=== PATIENT | male | born 1960 | race Caucasian/White ===

== ENCOUNTER 2019-02-15 02:59 | Inpatient (IN) ==
[2019-02-15 03:52] LABS: AGAP 11; ALBUMIN 3.4 g/dL (3.5-5.0); ALKALINE PHOSPHATASE 89 U/L (32-122); BUN 8 mg/dL (8-22); CALCIUM 8.8 mg/dL (8.8-10.2); CHLORIDE 92 mmol/L (98-107); COSMO 270; CREATININE 0.6 mg/dL (0.7-1.2); ESTIMATED GFR > 60; GLUCOSE 334 mg/dL (70-104); GOT 6 U/L (10-34); GPT < 5 U/L (10-44); SODIUM 129 mmol/L (136-145); TCO2 26 mmol/L (25-35); TOTAL PROTEIN 7.7 g/dL (6.3-8.3)
[2019-02-15] MEDS ORDERED: EPINEPHRINE IM ONE (03:52)
[2019-02-15] MEDS ORDERED: DUONEB (A & A) INH ONE (03:52)
[2019-02-15] MEDS ORDERED: SOLU-MEDROL IV ONE ×2 (03:52→08:58)
[2019-02-15] MEDS ORDERED: PULMICORT INH ONE (03:52)
[2019-02-15 03:55] LABS: BASO# 0.02 X1000 (0.0-0.2); BASO% 1.4 % (0.0-0.8); HEMATOCRIT 40.4 % (42.0-52.0); HEMOGLOBIN 13.9 g/dL (14.0-18.0); LYMPH# 0.71 X1000 (1.2-3.4); LYMPH% 51.4 % (20.5-51.1); MCH 25.5 PG (27-31); MCHC 34.4 g/dL (33-37); MCV 74.1 FL (81-99); MONO# 0.51 X1000 (0.11-0.59); MPV 8.5 FL (7.4-10.4); NEUT% 10.2 % (42.2-75.2); PLT 168 X1000 (130-400); RBC 5.45 XMIL (4.7-6.1); RDW 15.1 % (11.5-14.5); WBC 1.38 X1000 (4.8-10.8)
[2019-02-15] MEDS ORDERED: ZOSYN 3.375 GM in NS 50 ML IV ONE (04:16)
[2019-02-15] MEDS ORDERED: VANCOMYCIN 1 GM/NS 1 GM/250 ML IVPB IV ONE (04:16)
[2019-02-15] MEDS ORDERED: FLAGYL 500 MG/NS 500 MG/100 ML IVPB IV ONE (04:16)
--- NOTE | 2019-02-15 04:17 | PROVIDER DOCUMENTATION ---
HPI-EENT General - General Chief Complaint: Post Op Complaint Stated Complaint: "THROAT SWELLING" Time Seen by Provider: 02/15/19 03:51 Source: family Allergies/Adverse Reactions: Patient Allergies Allergy/AdvReac Type Severity Reaction Status Date / Time No Known Allergies Allergy Verified 02/15/19 03:13 - History of Present Illness-EENT General Nature of Presenting Problem: Pt had polyps removed from throat 3 weeks ago @ [facility]. IS not getting chemo/r adiation. Has had known low WBC. Over past 3 days, increasuing sharp throat pain, swelling. Presents tonight, feeling as if throat closing, cant breathe. EENT Location: reports: throat Quality of Pain: reports: sharp Onset/Duration: reports: 3 days ago Timing: reports: constant, getting worse Associated Symptoms: reports: cough, drooling Locality of Occurance: Home Similar Symptoms Previously?: No - Throat/Dental Throat/Dental Problem Symptoms: reports: unable to swallow Review of Systems - Adult - REVIEW OF SYSTEMS - ADULT Constitutional: reports: no symptoms reported Eyes: reports: no symptoms reported Ears, Nose, Mouth & Throat: reports: see HPI Cardiovascular: reports: no symptoms reported Respiratory: reports: shortness of breath Gastrointestinal: reports: no symptoms reported Genitourinary: reports: no symptoms reported Musculoskeletal: reports: no symptoms reported Integumentary: reports: no symptoms reported Neurological: reports: no symptoms reported Psychiatric: reports: no symptoms reported Endocrine: reports: no symptoms reported Hematologic/Lymphatic: reports: see HPI Allergic/Immunologic: reports: no symptoms reported Past History - Adult - PAST MEDICAL HISTORY-ADULT Review of Records: reports: Medications Reviewed Major Childhood Illnesses: reports: denies history Physical Exam- EENT - Physical Exam EE Initial Vital Signs Reviewed: Yes General Appearance: moderate distress Eye Exam: bilateral eye: normal inspection, PERRL, EOMI Ear Exam: bilateral ear: auricle normal Nasal Exam: normal inspection Throat Exam: normal mouth inspection, pharynx normal Neck: supple, tender midline Respiratory: respiratory distress, decreased breath sounds, accessory muscle use Cardiovascular: normal peripheral pulses, no edema, tachycardia Abdominal Exam: non tender, soft Back Exam: normal inspection, no CVA tenderness, no vertebral tenderness Extremity: normal range of motion, non-tender, normal gait, normal inspection Integumentary: normal color, normal turgor, warm/dry Neurologic: director of physical education II-XII nml as tested, grossly normal, no motor/sensory deficits, abnormal cerebellar tests Psych/Mental Status: normal mood/affect, normal thought content, normal thought process, oriented x 3 Progress - PLAN OF CARE/RESULTS Progress/Plan/Lab Results: Vital Signs - 8 hr 02/15/19 03:07 02/15/19 04:12 Temperature 100.9 F H Pulse Rate 105 H 105 H Respiratory Rate 18 18 Blood Pressure 120/74 O2 Sat by Pulse Oximetry 95 95 Laboratory Results - last 24 hr 02/15/19 02/15/19 02/15/19 03:20 03:20 03:20 WBC 1.38 L RBC 5.45 Hgb 13.9 L Hct 40.4 L MCV 74.1 L MCH 25.5 L MCHC 34.4 RDW Std Deviation 15.1 H Plt Count 168 MPV 8.5 Immature Gran % (Auto) 0.0 Neut % (Auto) 10.2 L Lymph % (Auto) 51.4 H Edwards % (Auto) 37.0 H Eos % (Auto) 0.0 Baso % (Auto) 1.4 H Immature Gran # (Auto) 0.00 Neut # (Auto) 0.20 L* Lymph # (Auto) 0.71 L Edwards # (Auto) 0.51 Eos # (Auto) 0.00 Baso # (Auto) 0.02 Segmented Neutrophils 16 L Lymphocytes 60 H Monocytes 20 H Pathologist Review Atypical Lymphocytes 4.0 Poikilocytosis OCCASIONAL Microcytosis OCCASIONAL Ovalocytes OCCASIONAL Sodium 129 L Potassium 4.0 Chloride 92 L Carbon Dioxide 26 Anion Gap 11 BUN 8 Creatinine 0.6 L Estimated GFR/1.73 m2 > 60 BUN/Creatinine Ratio 13 Glucose 334 H Calculated Osmolality 270 Calcium 8.8 Total Bilirubin 0.60 AST 6 L ALT < 5 L Alkaline Phosphatase 89 Total Protein 7.7 Albumin 3.4 L Globulin 4.0 Albumin/Globulin Ratio 1.0 Plasma Lactate 1.3 Orders Category Date Time Status Notify MD of + Sepsis Screen NOW Care 02/15/19 03:30 Active CHEST-1 VIEW [RAD] Stat Exams 02/15/19 03:52 Taken NECK AP AND/OR LAT SOFT TISSUE [RAD] Stat Exams 02/15/19 03:52 Taken BLOOD CULTURE [BLDCUL] Stat Lab 02/15/19 04:11 Ordered CBC WITH DIFF [HEME] Stat Lab 02/15/19 03:20 Completed COMPREHENSIVE METABOLIC PANEL [CHEM] Stat Lab 02/15/19 03:20 Completed LACTATE, PLASMA [CHEM] Stat Lab 02/15/19 03:20 Completed Albuterol 2.5MG/Ipratrop 0.5MG [Duoneb (A & A)] Med 02/15/19 03:52 Disconti nued 3 ml INH NOW ONE Budesonide [Pulmicort] Med 02/15/19 03:52 Discontinued 0.5 mg INH NOW ONE Epinephrine Med 02/15/19 03:52 Discontinued 0.4 mg IM NOW ONE Hydromorphone [Dilaudid] Med 02/15/19 05:18 Discontinued 1 mg IV NOW ONE Methylprednisolone Sod Succ [Solu-Medrol] Med 02/15/19 03:52 Discontinued 125 mg IV NOW ONE Metronidazole 500 mg/Ns [Flagyl 500 mg/Ns] Med 02/15/19 04:16 Discontinued 500 mg in 100 ml IV NOW Piperacillin/Tazobactam [Zosyn] 3.375 gm Med 02/15/19 04:16 Discontinued 0.9% Sodium Chloride Inj [Ns] 50 ml IV NOW Vancomycin 1 gm/Ns Med 02/15/19 04:16 Discontinued 1 gm in 250 ml IV NOW Aerosol Treatments Routine Oth 02/15/19 03:53 Active Aerosol Treatments Stat Oth 02/15/19 03:53 Active Result Diagrams: 02/15/19 03:20 02/15/19 03:20 - CONSULTS/PCP/HOSPITALIST Notification #1 *Consult/PCP/Hospitalist*: Akinsoto Time Discussed: 05:30 Consult Disposition: Admit Departure - Departure Date of Disposition Decision: 02/15/19 Time of Disposition Decision: 05:30 DIAGNOSIS: Neutropenia, febrile, Throat pain in adult Disposition: ADMITTED INPATIENT 09 Certified Medical Emergency: Emergent Condition: Good Referrals and Follow-Ups: None,PCP [Primary Care Provider] - - Critical Care Note This patient required my direct & personal management of CC.: No Attestation - Physician/ JODI Attestation Patient care was provided by Advanced Practice Provider:: No The physician spent face to face time with patient:: Yes Advanced Practice Provider documentation review:: Supervising physician onsite and consulted in the evaluation and care of this patient. The physician did have a face to face encounter with the patient.
[2019-02-15 04:22] LABS: LYMPHS 60 % (21-51); MONO 20 % (1-9); SEGS 16 % (42-75)
[2019-02-15 04:23] LABS: MICROCYTOSIS OCCASIONAL; POIKILOCYTOSIS OCCASIONAL
[2019-02-15 04:24] LABS: OVALOCYTES OCCASIONAL
[2019-02-15] MEDS ORDERED: DILAUDID IV ONE (05:18)
--- NOTE | 2019-02-15 07:16 | Diag Imaging Result Doc PS360 ---
EXAM: NECK AP AND/OR LAT SOFT TISSUE HISTORY: Throat closing TECHNIQUE: Soft tissue neck AP and lateral, two views COMPARISON: None. FINDINGS: No precervical soft tissue swelling. Epiglottis is prominent. No foreign body. IMPRESSION: Enlarged epiglottis Electronically signed by Waqar Almeida 02/15/2019 7:14 AM
--- NOTE | 2019-02-15 07:18 | Diag Imaging Result Doc PS360 ---
EXAM: CHEST-1 VIEW HISTORY: SOB TECHNIQUE: Chest single view COMPARISON: None. FINDINGS: The lungs are well expanded. The heart is not enlarged. The vessels are not distended. There are no infiltrates. No effusion identified. IMPRESSION: Negative exam. Electronically signed by Waqar Almeida 02/15/2019 7:16 AM
[2019-02-15] MEDS ORDERED: VANCOMYCIN IV PER PHARMACY MISC SCH (07:23)
[2019-02-15] MEDS ORDERED: NS 1,000 ML IV ONE (07:23)
[2019-02-15] MEDS ORDERED: DUONEB (A & A) INH PRN (09:01)
[2019-02-15] MEDS ORDERED: ZOFRAN IV PRN (09:18)
[2019-02-15] MEDS ORDERED: SOLU-MEDROL IV SCH (10:00)
[2019-02-15] MEDS ORDERED: AFRIN NASAL SPRAY NAS ONE (10:02)
[2019-02-15] MEDS ORDERED: HURRICAINE SPRAY TOP ONE (10:02)
[2019-02-15] MEDS ORDERED: FLAGYL 500 MG/NS 500 MG/100 ML IVPB IV SCH (11:00)
[2019-02-15] MEDS ORDERED: ZOSYN 3.375 GM in NS 50 ML IV SCH (11:00)
[2019-02-15] MEDS ORDERED: S2 RACEPINEPHRINE 2.25% ONE (11:50)
[2019-02-15] MEDS ORDERED: NS 1,000 ML ONE (11:51)
[2019-02-15] MEDS: DUONEB (A & A) INH SCH ×4 (11:59→23:07)
[2019-02-15] MEDS ORDERED: S2 RACEPINEPHRINE 2.25% INH ONE (12:00)
[2019-02-15] MEDS: DILAUDID IV PRN ×3 (12:06→23:36)
[2019-02-15] MEDS: DECADRON IV SCH ×3 (12:09→23:37)
[2019-02-15] MEDS: HUMULIN R SUBQ SCH ×4 (12:16→23:38)
[2019-02-15] MEDS ORDERED: VANCOMYCIN 1,750 MG in NS 250 ML IV SCH (13:00)
[2019-02-15] MEDS ORDERED: VANCOMYCIN 2,250 MG in NS 500 ML IV ONE (13:00)
--- NOTE | 2019-02-15 14:01 | HISTORY AND PHYSICAL ---
HISTORY OF PRESENT ILLNESS: Mr. Salcido reports that he had, I think, a laryngeal biopsy. There was concern about cancer, I believe. There was an Ear, Nose, and Throat doctor in [place] is what he told me he told me he did not go for follow-up. Apparently, he felt like they had ruptured a cyst. At any rate, he was doing pretty well for a week, and then he started having irritation in the larynx and more irritation, and he got concerned and came to the emergency room. Ears, Nose, and Throat Dr. Leonard has evaluated. It looks like it may be supraglottitis or super laryngeal irritation, infection, but the concern is he has a neutropenia and not sure why. PAST MEDICAL HISTORY: He has diabetes mellitus. He, I think, has been treated for hypertension; he denies. He has had some weight loss in the last several months; he is not sure exactly how much and in general feels a little weaker. Denies any fever or chills. No hemoptysis. He denies any other significant history. SOCIAL HISTORY: He used to drink pretty heavy. He quit 3 weeks ago after he has biopsy and apparently smoked until his biopsy so those have been stopped the last 3 weeks. REVIEW OF SYSTEMS: Weight loss reported. No fever chills reported. HEENT: Just irritation in his throat. Respiratory: Feels a little more short of breath. Cardiovascular: Denies any pedal edema, orthopnea. No chest pain or palpitations. Musculoskeletal/Neurologic: No focal complaints, just generally feels a little weak. Endocrinologic/Hematologic: No significant history. PHYSICAL EXAMINATION: VITAL SIGNS: He remains afebrile with temperature 98.2 degrees, pulse 80, respirations 14, blood pressure 98/73. EYES: Pupils are equal. NECK: No distended neck veins. LYMPH: I did not appreciate cervical or supraclavicular or axillary or femoral adenopathy. HENT: No thyromegaly. Posterior oropharynx looks unremarkable. He is fine at rest. When he starts talking and gets a little bit short of breath, voice is raspy. LUNGS: Clear anterior and posterior. CARDIOVASCULAR: Regular rhythm and rate without murmur or S3. ABDOMEN: Soft. SKIN: Warm and dry. DIAGNOSTIC STUDIES: White count 1380, hematocrit 40, platelet count 168,000. Sodium 129, potassium 4.0, chloride 92, BUN 8, creatinine 0.6, calcium 8.8, AST 6, ALT was less than 5, albumin 3.4. His chest x-ray: He has a negative exam, no infiltrate. Heart is not enlarged. Mediastinum unremarkable. I did not appreciate adenopathy. X-ray of the neck has enlarged epiglottis, epiglottitis, and no sign of foreign body. ASSESSMENT AND PLAN: 1. Supralaryngeal and epiglottitis in the face of neutropenia. Unsure why he has neutropenia. We are going to cover him for gram-positive and Streptococcus. He is on Zosyn ,and he is on vancomycin, but cover him for broad spectrum because of neutropenia. We will give him some Decadron to help the swelling go down, 8 mg IV q.8 h., and we will give him some fluids. I think we will move him to the unit or we can watch him. Right now, he appears to be stable. His airway appears to be stable. 2. Neutropenia. Questionable cause. We will see how his white count does. We may need to check HIV status and check other causes of neutropenia, and I may get Dr. Hurtado on the case tomorrow. 3. Diabetes mellitus, type 2. We will check sugars. 4. Losing weight. Not sure what that is about. cc: Roberto Herrera MD
--- NOTE | 2019-02-15 16:40 | INFECTIOUS DISEASE CONSULT REP ---
DATE: 02/15/2019 CONCLUSION: The patient is admitted the hospital with what appears to be epiglottitis. The patient has neutropenia the exact cause of which I am uncertain. RECOMMENDATIONS: I have discontinued vancomycin because it can decrease the white blood cell count and it is already low. I am going to discontinue Flagyl because in epiglottitis, anaerobic organisms do not play any role in causing the disease and finally, I am going to discontinue Zosyn because it can interact with vancomycin and give nephrotoxicity. Instead, I am going to start the patient on ceftaroline which should cover methicillin-resistant Staph aureus as well as other organisms such as Haemophilus, Strep pyogenes, pneumococcus and Staph aureus including methicillin- resistant Staph aureus. DISCUSSION: I was unable to get much in the way of a history from the patient because he talks and when he starts talking, his voice fades away and he then often coughs. According to Dr. Herrera's history and physical, the patient had a laryngeal biopsy recently and then he started having pain in his throat and he was having difficulty breathing. He finally came to the hospital and there the diagnosis of epiglottitis was made. The patient's CBC shows a white count of 1380, hemoglobin 13.9, platelet count 168,000. Creatinine is 0.6. GFR is greater than 60. Liver function studies are normal. Blood cultures are pending. Neck x-ray showed enlargement of the epiglottis. Chest x-ray shows clear lung wick. 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 SOCIAL HISTORY: The patient drinks alcoholic beverages. REVIEW OF SYSTEMS: I was unable to get. PHYSICAL EXAMINATION: Vital Signs: Temperature is 101 degrees, pulse 81, respirations 14, blood pressure 110/70. Generally: This is an ill-appearing middle-aged male. He is in no acute distress. Head/eyes/ears/nose/throat: He can hear my spoken words and see near objects. In his throat it looks somewhat erythematous. Neck: No stiffness. Lungs: Clear to auscultation. Cardiovascular: Regular heart rate. Abdomen: Soft and nontender. Neurologic: Patient is awake. He can move his extremities. There is no tremor. Integument: No rash noted. Thank you for the consult. cc: Sandip Hurtado MD
[2019-02-15 17:03] LABS: URINE SOURCE CLEAN CATCH
[2019-02-15 17:11] LABS: BILIRUBIN URINE NEGATIVE (NEGATIVE); BLOOD URINE TRACE (NEGATIVE); COLOR YELLOW; GLUCOSE URINE >1000 mg/dL (NEGATIVE); KETONE URINE 20 mg/dL (NEGATIVE); LEUKOCYTES URINE NEGATIVE (NEGATIVE); NITRITE URINE NEGATIVE (NEGATIVE); PH URINE 5.5; PROTEIN URINE TRACE mg/dL (NEGATIVE); SP GRAVITY URINE 1.026; TURBIDITY URINE CLEAR (CLEAR); UR EPITHELIAL CELLS <10 /HPF (<10); URINE BACTERIA NEGATIVE /HPF; URINE RBC <10 /HPF (<10); URINE WBC <10 /HPF (<10); UROBILINOGEN URINE NORMAL (NORMAL)
[2019-02-15] MEDS: GRANIX SUBQ SCH (18:28)
[2019-02-15] MEDS: TEFLARO 600 MG in NS 250 ML IV SCH (18:28)
[2019-02-15] MEDS ORDERED: GLUCOPHAGE PO SCH (21:00)
[2019-02-16] MEDS ORDERED: VANCOMYCIN 1,750 MG in NS 250 ML IV SCH (01:00)
[2019-02-16] MEDS: TEFLARO 600 MG in NS 250 ML IV SCH ×2 (06:22→17:00)
[2019-02-16] MEDS: DECADRON IV SCH ×3 (06:23→18:26)
[2019-02-16] MEDS: DILAUDID IV PRN ×3 (06:35→20:33)
[2019-02-16] MEDS: HUMULIN R SUBQ SCH ×4 (06:36→20:34)
[2019-02-16 07:16] LABS: EOS# 0.01 X1000 (0.0-0.7); EOS% 0.6 % (0.0-10.0); HEMATOCRIT 39.3 % (42.0-52.0); HEMOGLOBIN 13.5 g/dL (14.0-18.0); IMM GRAN# 0.03 X1000 (0.0-0.04); IMM GRAN% 1.8 % (0.0-0.5); LYMPH# 0.28 X1000 (1.2-3.4); LYMPH% 16.4 % (20.5-51.1); MCHC 34.4 g/dL (33-37); MCV 72.9 FL (81-99); MONO# 0.56 X1000 (0.11-0.59); MONO% 32.7 % (1.7-9.3); MPV 8.9 FL (7.4-10.4); NEUT# 0.83 X1000 (1.4-6.5); NEUT% 48.5 % (42.2-75.2); PLT 173 X1000 (130-400); RBC 5.39 XMIL (4.7-6.1); RDW 15.1 % (11.5-14.5); WBC 1.71 X1000 (4.8-10.8)
[2019-02-16 07:17] LABS: INR 1.04; PROTIME 14.4 Seconds (11.0-16.0); PTT 34.3 Seconds (22.3-41.8)
[2019-02-16 07:18] LABS: HEMOGLOBIN A1C 10.8 % (4.8-6.0)
[2019-02-16 07:48] LABS: AGAP 11; ALB/GLOB RATIO 0.7; ALBUMIN 2.9 g/dL (3.5-5.0); ALKALINE PHOSPHATASE 77 U/L (32-122); BUN 17 mg/dL (8-22); CALCIUM 9.3 mg/dL (8.8-10.2); CHLORIDE 97 mmol/L (98-107); COSMO 275; CREATININE 0.7 mg/dL (0.7-1.2); ESTIMATED GFR > 60; GLUCOSE 299 mg/dL (70-104); GOT 5 U/L (10-34); GPT < 5 U/L (10-44); MAGNESIUM 1.5 mg/dL (1.5-2.7); SODIUM 131 mmol/L (136-145); TCO2 23 mmol/L (25-35); TOTAL BILIRUBIN 0.47 mg/dL (0.20-1.00); TOTAL PROTEIN 7.2 g/dL (6.3-8.3)
[2019-02-16 08:06] LABS: FREE T4 1.44 ng/dL (0.93-1.70); TSH 0.5 uIUmL (0.27-4.20)
--- NOTE | 2019-02-16 08:06 | INFECTIOUS DISEASE PROGRESS NO ---
DATE: 02/16/2019 PRESENT ILLNESS: The patient has epiglottitis. He also has neutropenia. MEDICATIONS: The patient is on ceftaroline as a single agent. The patient also is receiving corticosteroids. PHYSICAL EXAMINATION: Vital Signs: Temperature is 97.8 degrees, pulse 74, respirations 19, blood pressure 113/78. Generally: The patient looks much better today. He does not have any problem breathing. He is able to talk better. He has been taking ice cubes and swallowing water without difficulty. Neck: No pain with movement. Lungs: Clear to auscultation. Cardiovascular: Regular heart rate. Head/eyes/ears/nose/throat: No drainage noted from the nose or ears. When I looked in the patient's mouth, there was some erythema but there is no white coating of his tongue. Lungs: Clear to auscultation. Cardiovascular: Regular heart rate. Abdomen: Soft and nontender. Neurologic: Patient is alert. He can move his extremities. There is no tremor. INTEGUMENT: No rash noted. LAB AND X-RAY: There is no new lab for today as of yet. The rapid strep test was negative. Blood and throat cultures are pending. ASSESSMENT AND PLAN: The patient has epiglottitis and neutropenia. The epiglottitis is getting better. As regarding the neutropenia I plan to obtain a CBC and BMP for tomorrow. I am going to get tomorrow a CBC, BMP and chest x-ray. COMORBIDITIES: He has diabetes mellitus and he had a laryngeal lesion which was being biopsied a week or 2 ago. This may have contributed to the patient's epiglottitis. The patient is a diabetic also. cc: Sandip Hurtado MD
[2019-02-16] MEDS: DUONEB (A & A) INH SCH ×5 (08:13→23:30)
[2019-02-16 08:47] LABS: BANDS 15 % (0-1); LYMPHS 20 % (21-51); MONO 30 % (1-9); SEGS 35 % (42-75)
[2019-02-16 08:48] LABS: HYPOCHROM 1+; MICROCYTOSIS 2+
--- NOTE | 2019-02-16 09:25 | PROGRESS NOTE ---
DATE: 02/16/2019 SUBJECTIVE: Mr. Salcido is feeling much better. He is requesting some food. His breathing is comfortable. His voice is not as raspy, not as much discomfort when he talks. OBJECTIVE: Vitals: Temperature 97.4 degrees, pulse 78, respirations 22, blood pressure 121/77. Neck: No distended neck veins. Eyes: Pupils are equal. Lungs: Are clear in all lung wick anterolateral. Cardiovascular: Regular rhythm and rate without murmur or S3. Abdomen: Soft. Skin: Warm and dry. ASSESSMENT AND PLAN: 1. Patient with epiglottitis and neutropenia. He is on ceftaroline, single agent and receiving Decadron corticosteroid and much better. Continue IV fluids. 2. Neutropenia. I am not sure why. I am going to try and obtain old records. 3. He gives a history that he has been diagnosed with rheumatoid arthritis. He has some nodules on both elbows, right more than the left. Also he told me that he has had a history of gout in the past. We are going to try and give him some Granix 480 mcg subcutaneous daily for 3 days and he is on a steroid inhaler as well as nebulized inhalers. Dr. Hurtado is following and I believe that vancomycin was stopped because it could decrease the white blood cell count, which is already low and discontinue Flagyl. I do not suspect anaerobic organisms. Discontinue Zosyn as it can interact with vancomycin and give nephrotoxicity. Dr. Hurtado started her on ceftaroline, which should cover for methicillin-resistant Staphylococcus aureus as well as other organisms such as Haemophilus, streptococcus pyogenes, pneumococcus and Staph aureus. cc: Roberto Herrera MD
[2019-02-16] MEDS: LOVENOX SUBQ SCH (09:47)
[2019-02-16] MEDS: GRANIX SUBQ SCH (09:47)
[2019-02-16] MEDS: TYLENOL PO PRN (20:35)
[2019-02-17] MEDS: DECADRON IV SCH ×4 (00:12→18:02)
[2019-02-17] MEDS: TYLENOL PO PRN (04:21)
[2019-02-17] MEDS: DILAUDID IV PRN ×2 (04:22→19:52)
[2019-02-17] MEDS: TEFLARO 600 MG in NS 250 ML IV SCH (04:24)
[2019-02-17] MEDS: HUMULIN R SUBQ SCH ×4 (06:20→21:25)
--- NOTE | 2019-02-17 06:35 | Diag Imaging Result Doc PS360 ---
CHEST-1 VIEW - 02/17/2019 INDICATION: pneumonia COMPARISON: 02/15/2019 FINDINGS: There is a skin fold in the right side of the chest. The lungs are clear. Heart size is normal. No pneumothorax or pleural effusion. IMPRESSION: Negative exam. Electronically signed by Prashanth Oliva 02/17/2019 6:33 AM
[2019-02-17 07:04] LABS: BASO# 0.01 X1000 (0.0-0.2); BASO% 0.6 % (0.0-0.8); HEMOGLOBIN 13.5 g/dL (14.0-18.0); IMM GRAN# 0.33 X1000 (0.0-0.04); IMM GRAN% 19.3 % (0.0-0.5); LYMPH# 0.16 X1000 (1.2-3.4); LYMPH% 9.4 % (20.5-51.1); MCH 25.5 PG (27-31); MCHC 34.6 g/dL (33-37); MCV 73.7 FL (81-99); MONO# 0.65 X1000 (0.11-0.59); MPV 9.6 FL (7.4-10.4); NEUT# 0.56 X1000 (1.4-6.5); NEUT% 32.7 % (42.2-75.2); PLT 164 X1000 (130-400); RBC 5.29 XMIL (4.7-6.1); RDW 15.2 % (11.5-14.5); WBC 1.71 X1000 (4.8-10.8)
[2019-02-17 07:31] LABS: AGAP 13; BUN 16 mg/dL (8-22); CALCIUM 9.4 mg/dL (8.8-10.2); CHLORIDE 95 mmol/L (98-107); COSMO 275; CREATININE 0.7 mg/dL (0.7-1.2); ESTIMATED GFR > 60; GLUCOSE 373 mg/dL (70-104); POTASSIUM 4.3 mmol/L (3.5-5.1); SODIUM 129 mmol/L (136-145); TCO2 21 mmol/L (25-35)
[2019-02-17] MEDS ORDERED: INSULIN PEN NEEDLES ONE (08:29)
[2019-02-17] MEDS: DUONEB (A & A) INH SCH ×5 (08:31→23:30)
[2019-02-17] MEDS: LOVENOX SUBQ SCH (08:44)
[2019-02-17] MEDS ORDERED: LEVEMIR SUBQ SCH (09:00)
[2019-02-17] MEDS: GRANIX SUBQ SCH (10:03)
--- NOTE | 2019-02-17 11:59 | INFECTIOUS DISEASE PROGRESS NO ---
DATE: 02/17/2019 PRESENT ILLNESS: The patient has epiglottitis. He also has neutropenia. MEDICATIONS: The patient is receiving ceftaroline as well as steroids. PHYSICAL EXAMINATION: Vital Signs: Temperature is 98 degrees, pulse 93, respirations 15, blood pressure 100/75. General: This is a somewhat ill-appearing middle-aged male. He is in no acute distress. Head, Eyes, Ears, Nose, and Throat: He can hear my spoken words and see near objects. He does not have any white patches on his tongue. He does talk with a hoarse voice. Neck: No pain with movement of the neck. Lungs: Clear to auscultation. Cardiovascular: Regular heart rate. Abdomen: Soft and nontender. Neurologic: The patient is alert. He can move his extremities. There is no tremor. DIAGNOSTIC STUDIES: The patient's chest x-ray shows clear lung wick. CBC shows a white count of 1710 with an absolute neutrophil count of 560, hemoglobin is 13.5, platelet count is 164,000. Creatinine is 0.7, GFR is greater than 60. Chest x-ray shows clear lung wick. ASSESSMENT AND PLAN: Patient has epiglottitis. I am going to discontinue ceftaroline and instead start the patient on p.o. Augmentin and doxycycline. COMORBIDITIES: 1. The patient has diabetes mellitus. 2. He also had a laryngeal lesion which was being biopsied a week or 2 before he developed epiglottitis. cc: Sandip Hurtado MD
[2019-02-17] MEDS: AUGMENTIN PO SCH (17:10)
[2019-02-17] MEDS: DOXYCYCLINE PO SCH (17:10)
[2019-02-17] MEDS: LEVEMIR SUBQ SCH (21:25)
--- NOTE | 2019-02-17 22:11 | PROGRESS NOTE ---
DATE: 02/17/2019 SUBJECTIVE: The patient is sitting up in the chair. He states that he still has a little bit of pain when he swallows, but he is able to tolerate a full liquid diet without any difficulty. He does complain of pain in his hands and feet. OBJECTIVE: Vital Signs: Temperature 96.5, blood pressure 129/72, heart rate 101, respirations 18, O2 saturations 95% on room air. General: This is a chronically ill- appearing, elderly male, lying in bed in no acute distress. Heart: S1, S2 normal. Tachycardic. Lungs: Clear to auscultation bilaterally. Abdomen: Positive bowel sounds. Soft, nontender, nondistended. Extremities: No edema. No cyanosis. Neurologic: The patient is alert and oriented x4. LABORATORIES: White blood cell count 1.7, hemoglobin 13, hematocrit 39, platelets 164. Sodium 129, potassium 4.3, chloride 95, CO2 of 21, BUN 16, creatinine 0.7, glucose is 373, calcium 9.4. ASSESSMENT AND PLAN: 1. Epiglottitis. Slowly improving. Continue on IV antibiotic therapy as directed by . 2. Laryngeal mass. Will order a CT to further assess this. Oncology has been consulted. 3. Neutropenia. Will await further recommendations from the employment recruiter. 4. Hyponatremia. Will start the patient on gentle IV fluid hydration. We will also check urine osmolality and urine sodium. 5. Uncontrolled insulin-dependent diabetes mellitus. We will start the patient on Levemir twice a day. 6. Alcohol dependence. We will start the patient on Librium and monitor closely for withdrawal. 7. Constipation. Will start the patient on scheduled laxative therapy. 8. Gastrointestinal prophylaxis. Will start the patient on IV Protonix. 9. Deep vein thrombosis prophylaxis. Will start the patient on Lovenox. cc: Aliyah Ron MD MTDShweta
[2019-02-17] MEDS: NEURONTIN PO SCH (23:57)
[2019-02-17] MEDS: LIBRIUM PO SCH (23:57)
[2019-02-17] MEDS: COLACE PO SCH (23:57)
[2019-02-18] MEDS: ATIVAN IV PRN ×2 (02:49→10:18)
[2019-02-18] MEDS: AUGMENTIN PO SCH ×2 (05:52→18:27)
[2019-02-18] MEDS: DOXYCYCLINE PO SCH ×2 (05:52→18:27)
[2019-02-18] MEDS: LIBRIUM PO SCH ×3 (05:52→20:40)
[2019-02-18 05:57] LABS: AGAP 11; BUN 12 mg/dL (8-22); CALCIUM 8.7 mg/dL (8.8-10.2); CHLORIDE 98 mmol/L (98-107); COSMO 273; CREATININE 0.7 mg/dL (0.7-1.2); ESTIMATED GFR > 60; GLUCOSE 192 mg/dL (70-104); SODIUM 134 mmol/L (136-145); TCO2 25 mmol/L (25-35)
[2019-02-18] MEDS: PERCOCET-5 PO PRN (05:57)
[2019-02-18] MEDS: PROTONIX IV SCH (06:08)
[2019-02-18] MEDS: HUMULIN R SUBQ SCH ×4 (06:08→20:44)
[2019-02-18 06:19] LABS: BASO# 0.01 X1000 (0.0-0.2); BASO% 0.2 % (0.0-0.8); EOS# 0.06 X1000 (0.0-0.7); EOS% 1.3 % (0.0-10.0); HEMATOCRIT 35.5 % (42.0-52.0); LYMPH# 0.36 X1000 (1.2-3.4); MCHC 33.8 g/dL (33-37); MONO# 0.82 X1000 (0.11-0.59); MONO% 18.2 % (1.7-9.3); MPV 9.8 FL (7.4-10.4); NEUT# 3.26 X1000 (1.4-6.5); NEUT% 72.3 % (42.2-75.2); PLT 140 X1000 (130-400); RDW 15.1 % (11.5-14.5); WBC 4.51 X1000 (4.8-10.8)
[2019-02-18 07:11] LABS: LYMPHS 14 % (21-51); SEGS 86 % (42-75)
[2019-02-18] MEDS: DUONEB (A & A) INH SCH ×5 (07:42→22:33)
[2019-02-18] MEDS ORDERED: DECADRON IV SCH (09:00)
[2019-02-18 09:12] LABS: RETIC% 0.87 % (0.8-2.1); RETIC-HE 29.1 PG (28.2-36.6)
[2019-02-18 09:30] LABS: MAGNESIUM 1.5 mg/dL (1.5-2.7); PHOSPHORUS 1.6 mg/dL (2.7-4.5)
[2019-02-18] MEDS ORDERED: MAGNESIUM SULFATE 2 GM/S.W.I. 2 GM/50 ML IVPB IV ONE (09:39)
[2019-02-18 09:50] LABS: FERRITIN 850 ng/mL (30-400)
[2019-02-18] MEDS ORDERED: SODIUM PHOSPHATE 30 MMOL in NS 250 ML IV ONE (09:51)
[2019-02-18] MEDS: MIRALAX PO SCH ×4 (09:59→20:43)
[2019-02-18] MEDS: LOVENOX SUBQ SCH (09:59)
[2019-02-18] MEDS: COLACE PO SCH ×2 (09:59→20:40)
[2019-02-18] MEDS: LEVEMIR SUBQ SCH (10:00)
--- NOTE | 2019-02-18 10:35 | INFECTIOUS DISEASE PROGRESS NO ---
DATE: 02/18/2019 PRESENT ILLNESS: The patient is being treated for epiglottitis. He was neutropenic, but after getting Granix his white count has increased. MEDICATIONS: The patient is on Augmentin and doxycycline, both of which were started yesterday. The patient also is receiving steroids. PHYSICAL EXAMINATION: Vital signs: Temperature is 96.5 degrees, pulse 99, respirations 18. General: This is a fairly healthy-appearing, middle-aged male. He has been sedated. Head, eyes, ears, nose and throat: No drainage from the nose or ears. Neck: No meningismus. Lungs: Clear to auscultation. Cardiovascular: Heart rate is regular. Abdomen: Soft and nontender. Integument: No rash. Neurologic: As mentioned above patient is sedated. He did not respond to verbal stimuli. LAB AND X-RAY: CBC today shows a white count of 4510 hemoglobin 12 platelet count 140,000 creatinine 0.7 GFR is greater than 60. The patient does not have any radiology procedure today. ASSESSMENT AND PLAN: Patient has epiglottitis. This is day 1 of treatment with Augmentin and doxycycline which both I plan on continuing. COMORBIDITIES: Diabetes mellitus and approximately 1 to 2 weeks ago he had a laryngeal biopsy performed. cc: Sandip Hurtado MD
--- NOTE | 2019-02-18 12:21 | Diag Imaging Result Doc PS360 ---
EXAM: CT HEAD W/O CONTRAST INDICATION: encephalopathy TECHNIQUE: This exam was performed using automated exposure control, adjustment of mA or kV according to patient size, and/or use of iterative reconstruction technique. COMPARISON: None. FINDINGS: There is no definite acute infarct given the limited sensitivity of CT versus MRI. There is no discrete intracranial mass, mass effect, or intracranial hemorrhage. The surrounding soft tissues and bony structures are essentially unremarkable. IMPRESSION: No evidence of acute intracranial pathology. Electronically signed by Alfonso Yang 02/18/2019 12:18 PM
--- NOTE | 2019-02-18 13:27 | Diag Imaging Result Doc PS360 ---
EXAM: CT NECK/THORAX/ABD/PELVIS W/CON INDICATION: laryngeal mass/Weight loss/neutropenia/splenomegaly TECHNIQUE: This exam was performed using automated exposure control, adjustment of mA or kV according to patient size, and/or use of iterative reconstruction technique. COMPARISON: None. FINDINGS: NECK: The salivary glands and thyroid are unremarkable. There is asymmetry at the level of the true and false vocal cords with ill-defined soft tissue prominent on the left. However, no well-defined mass can be identified. The epiglottis appears somewhat thickened, more prominent on the left. The upper aerodigestive tract is unremarkable, otherwise. There are small shotty supraclavicular lymph nodes bilaterally, most prominent on the left. They are nonspecific and not necessarily pathologic as they all measure less than 1 cm in the short axis. No other significant cervical lymphadenopathy is appreciated. IMPRESSION: 1.Irregularity at the level of the true and false focal cords with thickening on the left but no well-defined mass identified on this study. 2.Some thickening of the epiglottis, more prominent on the left. 3.Nonspecific small shotty supraclavicular lymph nodes, more prominent on the left. CHEST: There are a few small pulmonary calcified granulomata bilaterally. There are mild emphysematous changes, mainly at the right lung apex. There is bilateral dependent atelectasis, mainly at the lower lobes. There is no pleural fluid collection and no pneumothorax. The heart is mildly prominent. There are calcified mediastinal and hilar lymph nodes indicating prior granulomatous disease. There are coronary artery atherosclerotic calcifications. There is nothing to suggest local bony metastatic disease to the thorax. IMPRESSION: 1.Bilateral dependent atelectasis. 2.Mild COPD changes. 3.Other incidental/nonacute findings detailed above. ABDOMEN/PELVIS: There is prominent splenomegaly. The spleen measures up to 18.6 cm in craniocaudal length. There is suggestion of very minimal hepatic steatosis. No discrete hepatic mass is identified. The gallbladder is unremarkable. The pancreas and adrenal glands are unremarkable. There is a 4.9 cm cyst at the anterior aspect of the left kidney that probably contains a small amount of proteinaceous debris or blood products. No enhancement is appreciated. The kidneys are unremarkable, otherwise. The urinary bladder is very distended. No urinary bladder wall thickening or mass is identified. The prostate is not enlarged. There is mild uncomplicated sigmoid colonic diverticulosis. There is abundant stool in the transverse colon. There is no evidence of bowel wall thickening and no evidence of bowel obstruction. The remainder of the GI tract is grossly unremarkable. There is no evidence of significant abdominal or pelvic lymphadenopathy. There is thoracolumbar spondylosis. There is nothing to suggest local bony metastatic disease to the abdomen or pelvis. IMPRESSION: 1.Prominent splenomegaly. 2.Other incidental/nonacute findings detailed above. Electronically signed by Alfonso Yang 02/18/2019 1:24 PM
--- NOTE | 2019-02-18 13:34 | CONSULTATION ---
DATE OF CONSULTATION: 02/18/2019 HISTORY OF PRESENT ILLNESS: Mr. Salcido is 58 years old and he was admitted with apparent epiglottitis. That problem is being managed. There is history of ethanol abuse at baseline but reported possibly reduced ethanol use in recent days or weeks. He has had an altered mental state with restlessness, agitation, possibly confusion. No focal neurologic features have been recognized. I don't have detailed past neurologic history, but there is not reported history of stroke, seizure, serious head injury, other neurologic event. LABORATORY DATA: Lab showed WBC count 1380, total neutrophils 200, anemia, platelets 140,000. Sodium was 129, corrected to 134. Blood sugars were initially 300s-400s but recently just under 200. We do not have urine drug screen this admission. VITAL SIGNS: He had initial temperature recorded 100.9 degrees and he has been afebrile for the last 3 days. Heart rate has ranged from 90s to 110s initially, down to 70s-90s, recently. Systolic blood pressures have been stable, ranging 90s to 120s. IMAGING: Noncontrast CT of the head today shows some typical chronic changes, a little bit more prominent than usually seen in this age group, but there is nothing focal or acute, no bleeding or mass. PHYSICAL EXAMINATION: General: Mr. Salcido is supine, only briefly attentive, not communicating. He groaned and grimaced, but did not speak words to me. Head: Unremarkable. Neck: Supple without meningismus. Neurologic: He has full lateral eye movement with passive head turning and there was also some spontaneous conjugate eye movement. He opened and closed his eyes spontaneously, but not to command. Pupils are small and both react to bright light. Facial motility is symmetric. Limb tone is symmetric. He used his arms and legs purposefully. Plantar response is silent bilaterally. IMPRESSION AND PLAN: Global encephalopathy, uncertain etiology. Features are consistent with alcohol withdrawal syndrome, but other possibilities are not excluded. Negative CT is reassuring. I would continue managing as you are doing. We can consider EEG if he has fluctuating level of consciousness or clinical evidence of seizure. Time will tell, and I hope he will recover in a short time. Thanks for asking Neurology to see Mr. Salcido. cc: Nat Prado III, MD [facility]
[2019-02-18] MEDS: NS 1,000 ML IV SCH ×2 (14:17)
[2019-02-18 14:27] LABS: URINE SOURCE CATH
[2019-02-18 14:32] LABS: BILIRUBIN URINE NEGATIVE (NEGATIVE); BLOOD URINE NEGATIVE (NEGATIVE); COLOR YELLOW; GLUCOSE URINE NEGATIVE (NEGATIVE); KETONE URINE NEGATIVE (NEGATIVE); LEUKOCYTES URINE NEGATIVE (NEGATIVE); NITRITE URINE NEGATIVE (NEGATIVE); PH URINE 6.5; PROTEIN URINE NEGATIVE (NEGATIVE); TURBIDITY URINE CLEAR (CLEAR); UROBILINOGEN URINE 2 mg/dL (NORMAL)
[2019-02-18 14:33] LABS: UR EPITHELIAL CELLS <10 /HPF (<10); URINE BACTERIA NEGATIVE /HPF; URINE RBC <10 /HPF (<10); URINE WBC <10 /HPF (<10)
[2019-02-18] MEDS: FOLIC ACID 1 MG in NS 50 ML IV SCH (15:50)
--- NOTE | 2019-02-18 19:30 | HEMO/ONC CONSULTATION ---
DATE: 02/17/2019 CHIEF COMPLAINT: Neutropenia. HISTORY OF PRESENT ILLNESS: Mr. Salcido is a very pleasant 58-year-old male with a history of diabetes mellitus type 2, hypertension and EtOH abuse. The patient recently underwent laryngeal polypectomy with biopsy. The patient reports that status post the procedure he began to have severe throat pain and swelling. He presented to [facility], where he was seen in consult by [facility] N[facility] and Throat, Dr. Leonard. The patient was diagnosed with supraglottitis. Laboratory data was obtained and the patient was found to be significantly neutropenic, with no history of such. White blood cell count is 1.71, ANC is 560. We are consulted secondary to neutropenia. PAST MEDICAL HISTORY: As in HPI. PAST SURGICAL HISTORY: Recent laryngeal polypectomy with biopsy. FAMILY HISTORY: Negative for any hematologic or oncologic problems. SOCIAL HISTORY: The patient has a history of ETOH abuse. The patient has a history of smoking cigarettes, and stopped prior to laryngeal polypectomy. MEDICATIONS: On admission, metformin. ALLERGIES: The patient has no known drug allergies. REVIEW OF SYSTEMS: A 14-point review of systems was obtained and is negative except as mentioned in HPI. PHYSICAL EXAMINATION: Mr. Tevin Salcido is a pleasant 58-year-old male, lying supine in bed in no immediate distress. Vital signs: Temperature 97.6 degrees, blood pressure 100/75, heart rate 93, respirations 15, O2 saturation is 95% on room air. HEENT: Normocephalic, atraumatic. Mucous membranes are pink and moist. Sclerae are anicteric. Extraocular movements intact. Neck is supple. Lungs are clear to auscultation bilaterally. Chest expansion equal bilaterally. CV: S1, S2 is heard. No murmurs, rubs or gallops. Abdomen nondistended, nontender. Bowel sounds positive, all quadrants. No rebound or guarding noted. Extremities without clubbing, cyanosis or edema. Dermatologic: No rashes, bruises or lesions. Neurologic: The patient is awake, alert and oriented x3, and has no focal motor deficit. LABORATORY DATA: Hemoglobin 13.5, hematocrit 39.0, white blood cell count is 1.71, platelet count 164,000, ANC is 560. Sodium 129, potassium 4.3, chloride 95, CO2 is 21, BUN 16, creatinine 0.7 and glucose is 373. Calcium is 9.4. DIAGNOSTIC DATA: Chest x-ray is negative. ASSESSMENT AND PLAN: 1. Neutropenia in patient with no prior history. We will initiate a workup at this time. We will add neutropenic precautions. Additionally, we will add Granix to the patient's regimen. We will follow along. 2. Epiglottitis status post laryngeal polypectomy 3 weeks ago. The patient remains on ceftaroline and steroids. 3. Diabetes mellitus type 2. Blood sugar is currently 373. Treatment per hospitalist. 4. Weight loss. The patient reports approximately 100 pounds in weight loss in less than 1 year. Workup is currently in progress. 5. We will follow along with you and make further recommendations pending outcomes. The above reflects the history, exam, assessment and plan of Dr. Cintron. Dictated by SAPNA Turcios for Nahum Cintron MD cc: SAPNA Turcios MD
--- NOTE | 2019-02-18 19:58 | PROGRESS NOTE ---
DATE: 02/18/2019 SUBJECTIVE: The patient is confused and hallucinating. He is now in 4 point restraints. OBJECTIVE: Vital Signs: Temperature 98.6 degrees, blood pressure 110/82, heart rate 71, respirations 18, O2 saturation 98% on room air. General: This is a chronically ill-appearing elderly male, lying in bed in no acute distress. Heart: S1, S2 normal. Regular rate and rhythm. Lungs: Clear to auscultation bilaterally. Abdomen: Positive bowel sounds. Soft, nontender, nondistended. Extremities: No edema, no cyanosis. Neurologic: The patient is only oriented to self. He is currently not making sense. LABS: White blood cell count 4.5, hemoglobin 12, hematocrit 35, platelets 140,000. Sodium 134, potassium 4, chloride 98, CO2 25, BUN 12, creatinine 0.7, glucose 150, magnesium 1.5, phosphorus 1.6. Head CT shows no acute intracranial pathology. CT of the neck, chest, abdomen, and pelvis shows irregularity at the level of the true and false vocal cords with thickening on the left. Mild shotty supraclavicular lymph nodes, more prominent on the left. Chronic obstructive pulmonary disease. Bilateral dependent atelectasis. Splenomegaly. ASSESSMENT AND PLAN: 1. Suspected alcohol withdrawal. The patient is currently in 4-point restraints due to hallucinations. We will continue with Librium and as needed Ativan. The patient has been assessed by the neurologist. The patient's head CT is unremarkable. 2. Epiglottitis. Improved. We will discontinue the steroids. The case was discussed with Dr. Chaudhry, who recommended that the patient follow up with his outpatient ENT. Continue antibiotic therapy. 3. Possible laryngeal mass. The patient will be following up with ENT as outpatient. 4. Neutropenia. Resolved. Hematology is following. 5. Insulin dependent diabetes mellitus. We will cover the patient with sliding scale insulin. 6. Alcohol dependence. Aware. 7. Hypophosphatemia. Replace phosphorus. 8. Gastrointestinal prophylaxis. Continue on intravenous Protonix. 9. Deep vein thrombosis prophylaxis. Continue on Lovenox. cc: Aliyah Ron MD [facility]
[2019-02-18] MEDS: NEURONTIN PO SCH (20:40)
[2019-02-19] MEDS: NS 1,000 ML IV SCH ×4 (00:27→23:11)
[2019-02-19] MEDS: ATIVAN IV PRN ×2 (02:40→06:30)
[2019-02-19] MEDS: LIBRIUM PO SCH ×4 (04:57→23:10)
[2019-02-19] MEDS: AUGMENTIN PO SCH ×2 (05:00→17:31)
[2019-02-19] MEDS: DOXYCYCLINE PO SCH ×2 (05:00→17:31)
[2019-02-19] MEDS: PROTONIX IV SCH (06:00)
[2019-02-19] MEDS: SODIUM CHLORIDE 0.9% INJ SCH (06:01)
[2019-02-19 06:13] LABS: BASO# 0.01 X1000 (0.0-0.2); BASO% 0.3 % (0.0-0.8); HEMATOCRIT 36.6 % (42.0-52.0); HEMOGLOBIN 12.4 g/dL (14.0-18.0); IMM GRAN# 0.02 X1000 (0.0-0.04); IMM GRAN% 0.5 % (0.0-0.5); LYMPH# 0.87 X1000 (1.2-3.4); LYMPH% 22.7 % (20.5-51.1); MCH 25.4 PG (27-31); MCHC 33.9 g/dL (33-37); MCV 74.8 FL (81-99); MONO# 0.36 X1000 (0.11-0.59); MONO% 9.4 % (1.7-9.3); MPV 9.2 FL (7.4-10.4); NEUT# 2.57 X1000 (1.4-6.5); NEUT% 67.1 % (42.2-75.2); PLT 145 X1000 (130-400); RBC 4.94 XMIL (4.7-6.1); RDW 15.7 % (11.5-14.5); WBC 3.83 X1000 (4.8-10.8)
[2019-02-19 06:17] LABS: AGAP 9; BUN 7 mg/dL (8-22); CALCIUM 8.5 mg/dL (8.8-10.2); CHLORIDE 104 mmol/L (98-107); COSMO 280; CREATININE 0.6 mg/dL (0.7-1.2); ESTIMATED GFR > 60; GLUCOSE 86 mg/dL (70-104); POTASSIUM 3.7 mmol/L (3.5-5.1); SODIUM 142 mmol/L (136-145); TCO2 29 mmol/L (25-35)
[2019-02-19] MEDS: HUMULIN R SUBQ SCH ×4 (06:19→20:00)
[2019-02-19] MEDS: DUONEB (A & A) INH SCH ×5 (08:40→23:40)
--- NOTE | 2019-02-19 09:05 | PROGRESS NOTE ---
DATE: 02/19/2019 LOCATION: ICU bed 11. OBJECTIVE: Mr. Salcido appeared to be asleep as I approached the bedside. With fairly light stimulation, he woke up, spoke some to me, followed simple instructions, and then seemed quickly back to sleep when not vigorously spoken to. While awake, he moved all his limbs purposefully. He followed simple commands. There is full lateral eye movement. There is no meningismus. IMPRESSION: Global encephalopathy, features consistent with alcohol withdrawal and medical management for that problem. No evidence of seizure. No evidence of acute central nervous system event. Thank you for asking Neurology to see Mr. Salcido. I do not have any new suggestion today. cc: Nat Prado III, MD [facility]
[2019-02-19] MEDS: COLACE PO SCH ×2 (09:21→20:08)
[2019-02-19] MEDS: MIRALAX PO SCH ×2 (09:21→20:09)
[2019-02-19] MEDS: LOVENOX SUBQ SCH (09:21)
--- NOTE | 2019-02-19 12:52 | PROGRESS NOTE ---
DATE: 02/19/2019 SUBJECTIVE: The patient was noted to be somewhat sleepy this morning. He will awaken when his name is called. He is in restraints. OBJECTIVE: Vital Signs: Temperature 97.3 degrees, blood pressure 94/64, heart rate 92, respirations 18, O2 saturation is 96% on room air. General: This is a chronically ill-appearing, elderly male lying in bed, in no acute distress. Heart: S1, S2 normal. Regular rate and rhythm. Lungs: Equal air entry bilaterally. No crackles. No rales. Abdomen: Positive bowel sounds. Soft, nontender, nondistended. Extremities: No edema. No cyanosis. Neurologic: The patient is lethargic but will awaken when his name is called. He is able to move all 4 extremities. Labs: White blood cell count 3.8, hemoglobin 12, hematocrit 36, platelets 145,000. Sodium 142, potassium 3.7, chloride 104, CO2 29, BUN 7, creatinine 0.6, glucose 86, calcium 8.5, phosphorus 2.8. ASSESSMENT AND PLAN: 1. Alcohol withdrawal. Continue on Librium and as needed Ativan. We will continue to monitor the patient closely for improvement. 2. Epiglottitis. Improved. We will continue with antibiotic therapy. 3. Possible laryngeal mass. The patient will be following up with ENT as an outpatient. 4. Insulin dependent diabetes mellitus. Continue on sliding scale insulin. 5. Alcohol dependence. Aware. 6. Gastrointestinal prophylaxis. Continue on Protonix. 7. Deep vein thrombosis prophylaxis. Continue on Lovenox. cc: Aliyah Ron MD MTDD
--- NOTE | 2019-02-19 14:20 | INFECTIOUS DISEASE PROGRESS NO ---
DATE: 02/19/2019 PRESENT ILLNESS: The patient has epiglottitis. His neutropenia has improved quite a bit after getting Granix. MEDICATIONS: The patient is on a combination of Augmentin and doxycycline. The patient also is receiving steroids. PHYSICAL EXAMINATION: Vital Signs: Temperature is 98 degrees, pulse 71, respirations 18, blood pressure 130/95. General: This is a fairly healthy-appearing, middle-aged male. He is in no acute distress. He has been sedated. Head, Eyes, Ears, Nose, and Throat: No drainage noted from the nose or ears. He does not have any white patches on his tongue. Neck: No pain with movement of his head. Lungs: Clear to auscultation. Cardiovascular: Heart rate is regular. Abdomen: Soft and nontender. Neurologic: The patient is lethargic, probably due to sedation. He did, however, respond to verbal stimuli and even carried on a conversation with me. DIAGNOSTIC STUDIES: The patient's CBC shows a white count of 3830, hemoglobin 12.4, platelet count 145,000. Creatinine is 0.6, GFR is greater than 60. The patient had a head CT scan and this showed no evidence of acute intracranial pathology. ASSESSMENT AND PLAN: The patient has epiglottitis. This is the second day of treatment with Augmentin and doxycycline, and altogether he patient has had 4 days of treatment with antibiotics. COMORBIDITIES: 1. Diabetes mellitus. 2. History of a laryngeal biopsy. 3. Dr. Prado's note indicates that the patient was a heavy drinker of alcohol, and he may be undergoing withdrawal symptoms at this time. cc: Sandip Hurtado MD
[2019-02-19] MEDS: FOLIC ACID 1 MG in NS 50 ML IV SCH (14:26)
[2019-02-19] MEDS: NEURONTIN PO SCH (20:08)
[2019-02-20] MEDS: ATIVAN IV PRN (02:35)
[2019-02-20 05:35] LABS: HEMATOCRIT 37.1 % (42.0-52.0); HEMOGLOBIN 12.2 g/dL (14.0-18.0); MCH 25.4 PG (27-31); MCHC 32.9 g/dL (33-37); MCV 77.1 FL (81-99); MPV 9.1 FL (7.4-10.4); RBC 4.81 XMIL (4.7-6.1); RDW 15.9 % (11.5-14.5); WBC 2.62 X1000 (4.8-10.8)
[2019-02-20] MEDS: LIBRIUM PO SCH ×3 (05:37→20:25)
[2019-02-20] MEDS: AUGMENTIN PO SCH ×2 (05:37→17:11)
[2019-02-20] MEDS: DOXYCYCLINE PO SCH ×2 (05:37→17:11)
[2019-02-20] MEDS ORDERED: MAGNESIUM SULFATE 2 GM/S.W.I. 2 GM/50 ML IVPB IV ONE (05:57)
[2019-02-20 05:59] LABS: AGAP 9; BUN 6 mg/dL (8-22); CALCIUM 8.4 mg/dL (8.8-10.2); CHLORIDE 106 mmol/L (98-107); COSMO 280; CREATININE 0.6 mg/dL (0.7-1.2); ESTIMATED GFR > 60; GLUCOSE 124 mg/dL (70-104); POTASSIUM 3.7 mmol/L (3.5-5.1); SODIUM 141 mmol/L (136-145); TCO2 26 mmol/L (25-35)
[2019-02-20] MEDS: HUMULIN R SUBQ SCH ×4 (06:09→21:20)
[2019-02-20] MEDS: SODIUM CHLORIDE 0.9% INJ SCH (06:15)
[2019-02-20] MEDS: PROTONIX IV SCH (06:15)
[2019-02-20] MEDS: DUONEB (A & A) INH SCH ×5 (08:42→23:35)
[2019-02-20] MEDS: MIRALAX PO SCH ×2 (09:10→20:25)
[2019-02-20] MEDS: LOVENOX SUBQ SCH (09:10)
[2019-02-20] MEDS: COLACE PO SCH ×2 (09:10→20:25)
[2019-02-20] MEDS: MYCOSTATIN SUSP PO SCH ×4 (09:10→20:25)
[2019-02-20] MEDS: NS 1,000 ML IV SCH (09:10)
[2019-02-20] MEDS: FOLIC ACID 1 MG in NS 50 ML IV SCH (14:27)
--- NOTE | 2019-02-20 14:29 | INFECTIOUS DISEASE PROGRESS NO ---
DATE: 02/20/2019 PRESENT ILLNESS: Mr. Salcido has been treated for epiglottitis which seems to be improving. He has also developed an oral candidiasis. MEDICATIONS: At this point, he is receiving Augmentin 875 by mouth every 12 hours as well as doxycycline 100 mg every 12 hours by mouth. PHYSICAL EXAMINATION: Vital Signs: Temperature is 97.2 degrees, pulse rate 87, respiratory rate 14, blood pressure 125/98, O2 saturations are 99% on room air. General: This is a chronically ill-appearing, middle-aged gentleman. He is sitting up in bed, currently in no acute distress. HEENT: Atraumatic, normocephalic. Oral mucous membranes are pink and moist. Oral vestibules without any erythema. He does have a white coating to his tongue and complains of soreness to his tongue. He is also hoarse and conjunctiva are pink. Neck: Supple. Trachea is midline. Cardiovascular: Heart rate and rhythm are regular. Normal sinus rhythm on the monitor with occasional PACs and PVCs noted. Respiratory: Lung sounds are generally clear to auscultation with some tight wheezing noted in the upper lobes. Abdomen: Soft, round and nontender to palpation. Bowel sounds are active. Neurologic: He is awake, alert and oriented. Moving all extremities without difficulty in the bed. No focal deficits or tremors. LABORATORY AND X-RAY: Today his white count is 2.62, hemoglobin 12.2, platelet count 126,000. Creatinine is 0.6. Estimated GFR is greater than 60. No imaging reports today. ASSESSMENT AND PLAN: Mr. Salcido was being treated for epiglottitis and continues to improve. He is receiving Augmentin and doxycycline which we will continue. Altogether, today is day 5 of treatment with antibiotics. He does have some white coating to his tongue with soreness so I will order some nystatin swish and swallow. These plans have been discussed with and recommended by Dr. Hurtado. COMORBIDITIES: Include diabetes mellitus, alcoholism, and history of laryngeal biopsy. Dictated by SAPNA Quiroz for Sandip Hurtado MD cc: Sandip Hurtado MD [facility]
--- NOTE | 2019-02-20 14:38 | PROGRESS NOTE ---
DATE: 02/20/2019 SUBJECTIVE: The patient is awake and alert. He is no longer requiring wrist restraints. He states that he ate a good breakfast. OBJECTIVE: Vital Signs: Temperature 98.6 degrees, blood pressure 128/80, heart rate 82, respirations 14, O2 saturation 99% on room air. General: This is an elderly male lying in bed in no acute distress. Heart: S1, S2 normal. Regular rate and rhythm. Lungs: Clear to auscultation bilaterally. Abdomen: Positive bowel sounds. Soft, nontender, nondistended. Extremities: No edema, no cyanosis. Neurologic: The patient is alert and oriented x3. LABS: White blood cell count 2.6, hemoglobin 12, hematocrit 37, platelets 126,000. Sodium 141, potassium 3.7, chloride 106, CO2 26, BUN 6, creatinine 0.6, glucose 124, magnesium 1.4, phosphorus 3.4, calcium 8.4. ASSESSMENT AND PLAN: 1. Alcohol withdrawal. Improved. The patient is more awake and alert today. He is out of wrist restraints. 2. Epiglottitis. Continue with antibiotic therapy. 3. Possible laryngeal mass. The patient will be following up with Ear, Nose and Throat as outpatient. 4. Microcytic anemia. The patient's hemoglobin and hematocrit is stable. 5. Insulin dependent diabetes mellitus. Will start long-acting insulin since the patient is now eating solid food. 6. Alcohol dependence. Aware. 7. Tobacco dependence. The patient has been counseled about smoking cessation. 8. Gastrointestinal prophylaxis. Continue on Protonix. 9. Deep vein thrombosis prophylaxis. Continue on Lovenox. 10. Disposition. The patient is stable for transfer to the medical floor. Will consult physical therapy. cc: Aliyah Ron MD [facility]
--- NOTE | 2019-02-20 15:18 | PROGRESS NOTE ---
DATE: 02/20/2019 Mr. Salcido is propped up in bed, relaxed, calm, and not tremulous. He is awake, alert, and attentive. He answered questions appropriately. Speech is not dysarthric. Limb tone is symmetric. Extraocular movements are full. Head and neck are unremarkable. IMPRESSION: Global encephalopathy appears to be resolved with management for DTs. I encouraged him to be careful with ethanol, and he admitted he understands that is a problem and the reason for his recent trouble. I do not have anything new from Neurology standpoint. Thanks for asking us to see Mr. Salcido. cc: Nat Prado III, MD [facility]
[2019-02-20] MEDS: DILAUDID IV PRN ×2 (15:23→20:25)
[2019-02-20] MEDS: NEURONTIN PO SCH (20:25)
[2019-02-20] MEDS: LANTUS INSULIN SUBQ SCH (21:20)
[2019-02-21] MEDS: SODIUM CHLORIDE 0.9% INJ SCH (06:59)
[2019-02-21] MEDS: AUGMENTIN PO SCH ×2 (06:59→17:25)
[2019-02-21] MEDS: DOXYCYCLINE PO SCH ×2 (06:59→17:25)
[2019-02-21] MEDS: PROTONIX IV SCH (06:59)
[2019-02-21] MEDS: DILAUDID IV PRN ×2 (07:00→09:14)
[2019-02-21] MEDS: HUMULIN R SUBQ SCH ×4 (07:02→21:47)
[2019-02-21] MEDS: DUONEB (A & A) INH SCH ×5 (07:37→23:56)
[2019-02-21 07:58] LABS: AGAP 9; BUN 8 mg/dL (8-22); CALCIUM 8.4 mg/dL (8.8-10.2); CHLORIDE 101 mmol/L (98-107); COSMO 283; CREATININE 0.7 mg/dL (0.7-1.2); ESTIMATED GFR > 60; GLUCOSE 228 mg/dL (70-104); MAGNESIUM 1.4 mg/dL (1.5-2.7); PHOSPHORUS 2.1 mg/dL (2.7-4.5); SODIUM 139 mmol/L (136-145); TCO2 29 mmol/L (25-35)
[2019-02-21 09:00] LABS: BASO# 0.01 X1000 (0.0-0.2); BASO% 0.6 % (0.0-0.8); EOS# 0.02 X1000 (0.0-0.7); EOS% 1.1 % (0.0-10.0); HEMATOCRIT 38.8 % (42.0-52.0); HEMOGLOBIN 12.6 g/dL (14.0-18.0); LYMPH# 0.84 X1000 (1.2-3.4); LYMPH% 47.7 % (20.5-51.1); MCHC 32.5 g/dL (33-37); MCV 77.1 FL (81-99); MONO% 11.4 % (1.7-9.3); MPV 8.9 FL (7.4-10.4); NEUT# 0.69 X1000 (1.4-6.5); NEUT% 39.2 % (42.2-75.2); PLT 122 X1000 (130-400); RBC 5.03 XMIL (4.7-6.1); RDW 15.9 % (11.5-14.5); WBC 1.76 X1000 (4.8-10.8)
[2019-02-21] MEDS: MYCOSTATIN SUSP PO SCH ×4 (09:02→22:11)
[2019-02-21] MEDS: MIRALAX PO SCH ×4 (09:02→22:11)
[2019-02-21] MEDS: LIBRIUM PO SCH ×3 (09:02→17:25)
[2019-02-21] MEDS: COLACE PO SCH ×2 (09:02→22:11)
[2019-02-21] MEDS: LANTUS INSULIN SUBQ SCH ×2 (09:08→22:13)
[2019-02-21] MEDS: LOVENOX SUBQ SCH (09:08)
[2019-02-21] MEDS ORDERED: MAGNESIUM SULFATE 2 GM/S.W.I. 2 GM/50 ML IVPB IV ONE (09:12)
[2019-02-21] MEDS ORDERED: SODIUM PHOSPHATE 30 MMOL in NS 250 ML IV ONE (09:12)
[2019-02-21] MEDS ORDERED: DULCOLAX PR ONE (09:44)
--- NOTE | 2019-02-21 11:27 | PROGRESS NOTE ---
DATE: 02/21/2019 SUBJECTIVE: The patient states that he has not had a bowel movement in several days. Otherwise, he complains of pain in his hands and feet. OBJECTIVE: Vital Signs: Temperature 97.6 degrees, blood pressure 116/73, heart rate 73, respirations 20, O2 saturation 99% on room air. General: This is an elderly male sitting up in bed in no acute distress. Heart: S1, S2 normal. Regular rate and rhythm. Lungs: Clear to auscultation bilaterally. Abdomen: Positive bowel sounds. Soft, nontender, nondistended. Extremities: No edema. No cyanosis. No calf tenderness. Neurologic: The patient is alert and oriented x4. LABORATORY DATA: WBC: 1.7, ANC 690. White blood cell count 12, hematocrit 38, platelets 122,000. Sodium 139, potassium 4, chloride 101, CO2 29, phosphorus 2.1, magnesium 1.4, glucose 228. ASSESSMENT AND PLAN: 1. Alcohol withdrawal. Improved. Continue on Librium taper. 2. Epiglottitis. Continue with antibiotic therapy. 3. Possible laryngeal mass. The patient will be following up with ENT as outpatient. 4. Pancytopenia. The patient is neutropenic again today. Will await further recommendations from Hematology-Oncology. We will place the patient on neutropenic precautions. 5. Insulin-dependent diabetes mellitus. Continue on long-acting insulin. 6. Constipation. We will start the patient on scheduled laxative therapy. 7. Tobacco dependence. The patient has been counseled about smoking cessation. 8. Deep vein thrombosis prophylaxis. We will hold the Lovenox today since the patient's platelet count is trending downward. cc: Aliyah Ron MD [facility]
[2019-02-21] MEDS: PERCOCET-5 PO PRN ×2 (13:26→22:11)
[2019-02-21] MEDS: LACTULOSE PO SCH ×2 (13:27→22:11)
[2019-02-21] MEDS: GRANIX SUBQ SCH (14:55)
[2019-02-21] MEDS: FOLIC ACID 1 MG in NS 50 ML IV SCH (20:45)
[2019-02-21] MEDS: CHLORASEPTIC SPRAY MT PRN (22:11)
[2019-02-21] MEDS: NEURONTIN PO SCH (22:11)
[2019-02-22] MEDS: PROTONIX IV SCH (04:46)
[2019-02-22] MEDS: PERCOCET-5 PO PRN ×3 (04:46→16:34)
[2019-02-22] MEDS: DOXYCYCLINE PO SCH ×3 (04:46→17:23)
[2019-02-22] MEDS: AUGMENTIN PO SCH ×3 (04:46→17:23)
[2019-02-22] MEDS: HUMULIN R SUBQ SCH ×4 (06:21→22:17)
[2019-02-22] MEDS: DUONEB (A & A) INH SCH ×5 (07:15→23:37)
[2019-02-22 07:22] LABS: BASO# 0.01 X1000 (0.0-0.2); BASO% 0.1 % (0.0-0.8); EOS# 0.01 X1000 (0.0-0.7); EOS% 0.1 % (0.0-10.0); HEMATOCRIT 38.5 % (42.0-52.0); HEMOGLOBIN 12.5 g/dL (14.0-18.0); IMM GRAN# 0.03 X1000 (0.0-0.04); IMM GRAN% 0.3 % (0.0-0.5); LYMPH# 0.74 X1000 (1.2-3.4); LYMPH% 8.6 % (20.5-51.1); MCH 25.1 PG (27-31); MCHC 32.5 g/dL (33-37); MCV 77.3 FL (81-99); MONO# 0.46 X1000 (0.11-0.59); MONO% 5.3 % (1.7-9.3); MPV 9.4 FL (7.4-10.4); NEUT# 7.39 X1000 (1.4-6.5); NEUT% 85.6 % (42.2-75.2); PLT 134 X1000 (130-400); RBC 4.98 XMIL (4.7-6.1); RDW 16.2 % (11.5-14.5); WBC 8.64 X1000 (4.8-10.8)
[2019-02-22 07:36] LABS: AGAP 9; ALB/GLOB RATIO 0.9; ALBUMIN 2.9 g/dL (3.5-5.0); ALKALINE PHOSPHATASE 85 U/L (32-122); BUN 10 mg/dL (8-22); CALCIUM 8.7 mg/dL (8.8-10.2); CHLORIDE 101 mmol/L (98-107); COSMO 284; CREATININE 0.8 mg/dL (0.7-1.2); ESTIMATED GFR > 60; GLUCOSE 199 mg/dL (70-104); GOT 7 U/L (10-34); GPT 7 U/L (10-44); MAGNESIUM 1.4 mg/dL (1.5-2.7); PHOSPHORUS 3.1 mg/dL (2.7-4.5); POTASSIUM 4.4 mmol/L (3.5-5.1); SODIUM 140 mmol/L (136-145); TCO2 30 mmol/L (25-35); TOTAL BILIRUBIN 0.38 mg/dL (0.20-1.00)
[2019-02-22 07:38] LABS: FLOW CYTOMETERY SOURCE WHOLE BLOOD; LEUKEMIA LYMPHOMA BY FLOW REFERRED FOR TESTING
[2019-02-22] MEDS: LACTULOSE PO SCH ×2 (09:16→19:39)
[2019-02-22] MEDS: COLACE PO SCH ×2 (09:16→19:39)
[2019-02-22] MEDS: LIBRIUM PO SCH ×3 (09:16→17:23)
[2019-02-22] MEDS: MYCOSTATIN SUSP PO SCH ×4 (09:16→19:39)
[2019-02-22] MEDS: MIRALAX PO SCH ×3 (09:17→19:39)
[2019-02-22] MEDS: LANTUS INSULIN SUBQ SCH (09:17)
[2019-02-22] MEDS: GRANIX SUBQ SCH (09:17)
[2019-02-22] MEDS ORDERED: FLEXERIL PO ONE (10:36)
[2019-02-22] MEDS ORDERED: FLEXERIL PO PRN (11:49)
[2019-02-22] MEDS ORDERED: MAGNESIUM SULFATE 4 GM/S.W.I. 4 GM/100 ML IVPB IV ONE (12:25)
--- NOTE | 2019-02-22 13:27 | PROGRESS NOTE ---
DATE: 02/22/2019 SUBJECTIVE: The patient is resting comfortably in bed. He complains of muscle cramping in his hands. OBJECTIVE: Vital Signs: Temperature 97.5 degrees, blood pressure 115/77, heart rate 100, respirations 16, O2 saturation is 98% on room air. General: This is an elderly male, sitting up in bed, in no acute distress. Heart: S1, S2 normal. Regular rate and rhythm. Lungs: Equal air entry bilaterally. No crackles. No rales. Abdomen: Positive bowel sounds. Soft, nontender, nondistended. Extremities: No edema, no cyanosis. Neurologic: The patient is alert and oriented x4. Labs: White blood cell count 8.6, hemoglobin 12, hematocrit 38, platelets 134,000. Sodium 140, potassium 4.4, chloride 101, CO2 30, BUN 10, creatinine 0.8, glucose 199, magnesium 1.4. ASSESSMENT AND PLAN: 1. Alcohol withdrawal. Resolved. We will continue to taper the Librium. 2. Epiglottitis. Improved. Continue on Augmentin and doxycycline. 3. Uncontrolled insulin-dependent diabetes mellitus. Continue on Lantus plus sliding scale insulin. 4. Hypomagnesemia. We will replace the patient's magnesium. 5. Neutropenia. Resolved. The patient received Granix yesterday. Management as per Heme/Onc. He will likely need a bone marrow biopsy. He was to follow up with Dr. Danis Gilbert in [place], [place]. 6. 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 The patient will be following up with ENT Dr.Kenneth Unger as outpatient for further evaluation. 7. Tobacco dependence. The patient has been counseled about smoking cessation. 8. Constipation. Improved. Continue with scheduled laxative therapy. 9. Deep vein thrombosis prophylaxis. Continue on Lovenox. 10. Disposition. We will likely plan to discharge the patient home tomorrow. cc: Aliyah Ron MD [facility]
[2019-02-22] MEDS: NEURONTIN PO SCH (19:39)
[2019-02-22] MEDS: CHLORASEPTIC SPRAY MT PRN (19:42)
[2019-02-22] MEDS: HUMULIN N SUBQ SCH (22:17)
[2019-02-23] MEDS: NEURONTIN PO SCH (03:46)
[2019-02-23] MEDS: COLACE PO SCH ×2 (03:46→09:04)
[2019-02-23] MEDS: MYCOSTATIN SUSP PO SCH ×2 (03:47→09:04)
[2019-02-23] MEDS: LACTULOSE PO SCH ×2 (03:47→09:04)
[2019-02-23] MEDS: MIRALAX PO SCH ×2 (03:47→09:05)
[2019-02-23] MEDS: AUGMENTIN PO SCH ×2 (04:56→07:31)
[2019-02-23] MEDS: PERCOCET-5 PO PRN (04:56)
[2019-02-23] MEDS: DOXYCYCLINE PO SCH ×2 (04:56→07:31)
[2019-02-23] MEDS: PROTONIX IV SCH (04:57)
[2019-02-23] MEDS: SODIUM CHLORIDE 0.9% INJ SCH (04:57)
[2019-02-23] MEDS: HUMULIN R SUBQ SCH ×2 (05:50→11:55)
[2019-02-23 07:03] LABS: MAGNESIUM 1.6 mg/dL (1.5-2.7); PHOSPHORUS 3.5 mg/dL (2.7-4.5)
[2019-02-23 07:06] LABS: BASO# 0.01 X1000 (0.0-0.2); BASO% 0.1 % (0.0-0.8); EOS# 0.02 X1000 (0.0-0.7); EOS% 0.2 % (0.0-10.0); HEMATOCRIT 40.7 % (42.0-52.0); HEMOGLOBIN 13.4 g/dL (14.0-18.0); IMM GRAN# 0.05 X1000 (0.0-0.04); IMM GRAN% 0.4 % (0.0-0.5); LYMPH# 1.36 X1000 (1.2-3.4); LYMPH% 11.7 % (20.5-51.1); MCH 25.1 PG (27-31); MCHC 32.9 g/dL (33-37); MCV 76.4 FL (81-99); MONO# 0.63 X1000 (0.11-0.59); MONO% 5.4 % (1.7-9.3); MPV 9.7 FL (7.4-10.4); NEUT# 9.57 X1000 (1.4-6.5); NEUT% 82.2 % (42.2-75.2); PLT 149 X1000 (130-400); RBC 5.33 XMIL (4.7-6.1); RDW 16.5 % (11.5-14.5); WBC 11.64 X1000 (4.8-10.8)
[2019-02-23 07:19] LABS: AGAP 12; BUN 9 mg/dL (8-22); CHLORIDE 97 mmol/L (98-107); COSMO 271; CREATININE 0.8 mg/dL (0.7-1.2); ESTIMATED GFR > 60; GLUCOSE 97 mg/dL (70-104); POTASSIUM 4.5 mmol/L (3.5-5.1); SODIUM 136 mmol/L (136-145); TCO2 27 mmol/L (25-35)
[2019-02-23] MEDS ORDERED: MAGNESIUM SULFATE 2 GM/S.W.I. 2 GM/50 ML IVPB IV ONE (07:22)
[2019-02-23] MEDS: DUONEB (A & A) INH SCH ×2 (08:18→11:14)
[2019-02-23] MEDS ORDERED: FOLIC ACID PO SCH (09:00)
--- NOTE | 2019-02-23 09:26 | INFECTIOUS DISEASE PROGRESS NO ---
DATE: 02/23/2019 PRESENT ILLNESS: The patient is being treated for epiglottitis. He has made a remarkable improvement, and he is being discharged today on a combination of Augmentin and Cipro to be taken for 10 more days. I have requested that the patient have an appointment in my office in 10 days from today. cc: Sandip Hurtado MD
[2019-02-23] MEDS: HUMULIN N SUBQ SCH (09:33)
[2019-02-23 12:22] VITALS: BP 113/75
[2019-02-23] MEDS ORDERED: LOVENOX SUBQ SCH (12:27)
--- NOTE | 2019-02-23 16:13 | DISCHARGE SUMMARY ---
ADMISSION DATE: 02/15/2019 DISCHARGE DATE: 02/23/2019 FINAL DISCHARGE DIAGNOSES: 1. Acute epiglottitis. 2. Alcohol withdrawal. 3. 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 4. Neutropenia. 5. Uncontrolled insulin-dependent diabetes mellitus. 6. Hypomagnesemia. 7. Tobacco dependence. 8. Constipation. 9. Microcytic anemia. CONSULTATIONS REQUESTED DURING THIS HOSPITAL STAY: 1. ID consultation with Dr. Hurtado. 2. ENT consultation with Dr. Chaudhry. 3. Hematology oncology consultation with Dr. Cintron. IMAGIN. Portable chest x-ray performed on 02/15/2019 that revealed a negative exam. 2. X-ray of the neck performed on 02/15/2019 that revealed an enlarged epiglottis. 3. CT of the chest, abdomen, and pelvis performed on 02/18/2019 that revealed an irregularity at the level of the true and false vocal cords with thickening seen on the left. Thickening of the epiglottis more prominent on the left. Small supraclavicular lymph nodes, more prominent on the left. Bilateral dependent atelectasis. Chronic obstructive pulmonary disease. Splenomegaly. 4. Head CT which revealed no acute intracranial pathology. HOSPITAL COURSE: Mr. Salcido is a 58-year-old male with a history of tobacco and alcohol dependence, as well as insulin-dependent diabetes mellitus, who presented to the ER with a sore throat and difficulty swallowing. An x-ray was done that revealed a prominent epiglottis. The patient reported that he had a recent laryngoscopy with a biopsy at the beginning of January, but had not had time to follow-up yet. The patient was admitted to the medical ICU with a diagnosis of epiglottitis. Infectious Disease as well as ENT were consulted. The patient was initially started on IV antibiotics and steroid therapy. Slowly over the course of the hospitalization the patient improved and was able to eventually swallow solids. He also reported that the pain had resolved. The patient did develop alcohol withdrawal and was treated with Librium and Ativan as necessary. Withdrawal symptoms resolved and the patient was transferred to the medical floor. The patient was noted to be neutropenic, so Hematology Oncology was consulted for further recommendations. The patient was treated with Granix which resulted in improvement in the patient's neutropenia. The patient stated that he did not have the money to pay for his prescriptions so Pediatric Nephrologist was consulted to assist with helping the patient to acquire his medications. The patient had a CT of the neck, chest, abdomen, and pelvis done that revealed splenomegaly as well as an irregularity at the level of the true and false vocal cords with thickening on the left as well as a prominent epiglottis and small supraclavicular lymph nodes, more prominent on the left. The patient has been advised to follow up with Dr. Lal in [facility]. He will also need to follow up with Dr. Cintron at [facility] to arrange for a bone marrow biopsy. The patient continued to improve clinically and was ultimately cleared for discharge home on 02/23/2019. DISCHARGE MEDICATIONS: 1. Neurontin 100 mg oral at bedtime. 2. Augmentin 875 mg oral every 12 hours x10 days. 3. Doxycycline 100 mg oral every 12 hours x10 days. 4. Folic acid 0.4 mg oral daily. 5. NPH 25 units subcutaneous twice a day. 6. MiraLAX 17 g oral twice a day. 7. Percocet 5/325 one tab oral every 6 hours p.r.n. pain. 8. Metformin 500 mg oral twice a day. DISCHARGE DIET: 1800 ADA diet, low-sodium diet. ACTIVITY: As tolerated. DISCHARGE INSTRUCTIONS: The patient is scheduled to follow up with Dr. Cintron on 03/04/2019. The patient has also been told to call and set up an appointment with Dr. Ramón Lal upon discharge from the hospital. The patient will also follow up with Dr. Sandip Hurtado in 10 days. cc: MD Ramón Purcell MD
== END 2019-02-23 14:50 | disposition home or self-care (01) | DRG 153 ==
LOC: P.ED 02:59 → 3N 06:19 → SUATTDRO 06:19 → 3N 06:54 → ICU 11:42 → 3N 02-20 15:40
PROVIDERS: ATTEND Internal Medicine
CPT/HCPCS: 70360; 70450; 70491; 71010; 71045; 71260; 74177; 80048; 80053; 80061; 81001; 82140; 82378; 82607; 82728; 82746; 82948; 83036; 83540; 83550; 83605; 83721; 83735; 83935; 84100; 84153; 84300; 84439; 84443; 84550; 85025; 85027; 85045; 85610; 85730; 86038; 86039; 87040; 87081; 87430; 94640; 94760; 94761; 94799; 96365; 96367; 96368; 96372; 96375; 97162; 97530; 99285; A9270; C9113; G0103; J0171; J0712; J1100; J1170; J1446; J1447; J1650; J1815; J2060; J2543; J2930; J3370; J3475; J7030; J7050; S0030; S0164; XXXXX

== ENCOUNTER 2019-06-30 17:13 | Inpatient (IN) ==
--- NOTE | 2019-06-30 17:57 | Diag Imaging Result Doc PS360 ---
EXAM: CHEST-2 VIEWS - 06/30/2019 HISTORY: SOB TECHNIQUE: Chest two views COMPARISON: 02/17/2019 portable chest FINDINGS: Heart size is normal. Lungs appear clear. There is no pleural effusion or pneumothorax identified. There is thoracic spondylosis noted. IMPRESSION: No evidence of acute disease. Electronically signed by Rohit Jones 06/30/2019 5:54 PM
[2019-06-30 18:36] LABS: AGAP 18; ALB/GLOB RATIO 0.8; ALKALINE PHOSPHATASE 96 U/L (32-122); BUN 12 mg/dL (8-22); CHLORIDE 92 mmol/L (98-107); COSMO 266; CREATININE 0.8 mg/dL (0.7-1.2); ESTIMATED GFR > 60; GLUCOSE 222 mg/dL (70-104); GOT 10 U/L (10-34); GPT 5 U/L (10-44); POTASSIUM 3.9 mmol/L (3.5-5.1); SODIUM 129 mmol/L (136-145); TCO2 19 mmol/L (25-35); TOTAL BILIRUBIN 0.42 mg/dL (0.20-1.00); TOTAL PROTEIN 8.9 g/dL (6.3-8.3)
[2019-06-30 18:37] LABS: BASO# 0.02 X1000 (0.0-0.2); HEMATOCRIT 41.5 % (42.0-52.0); HEMOGLOBIN 13.9 g/dL (14.0-18.0); LYMPH# 1.16 X1000 (1.2-3.4); MCH 25.4 PG (27-31); MCHC 33.5 g/dL (33-37); MCV 75.7 FL (81-99); MONO# 0.37 X1000 (0.11-0.59); PLT 246 X1000 (130-400); RBC 5.48 XMIL (4.7-6.1)
[2019-06-30 18:38] LABS: BASO% 1.3 % (0.0-0.8); LYMPH% 73.4 % (20.5-51.1); MONO% 23.4 % (1.7-9.3); MPV 8.1 FL (7.4-10.4); NEUT% 1.9 % (42.2-75.2); WBC 1.58 X1000 (4.8-10.8)
[2019-06-30 18:45] LABS: NEUT# 0.03 X1000 (1.4-6.5)
[2019-06-30 19:00] LABS: ANISOCYTOSIS OCCASIONAL; LARGE PLATELETS OCCASIONAL; LYMPHS 64 % (21-51); MONO 24 % (1-9); SEGS 6 % (42-75)
--- NOTE | 2019-06-30 19:04 | PROVIDER DOCUMENTATION ---
HPI-General Adult - General Chief Complaint: Sores/Lesions Stated Complaint: SOB, RASH Time Seen by Provider: 06/30/19 17:23 Source: patient, family Allergies/Adverse Reactions: Patient Allergies Allergy/AdvReac Type Severity Reaction Status Date / Time No Known Allergies Allergy Verified 06/30/19 17:34 Home Medications: Home Medication List Medication Instructions Recorded Confirmed Last Taken Type Folic Acid 0.4 mg PO DAILY #30 tab 02/23/19 06/30/19 03/16/19 Rx Gabapentin [Neurontin] 100 mg PO QHS #30 cap 02/23/19 06/30/19 03/16/19 Rx Insulin Human NPH [Humulin N] 25 unit SUBQ BID #4 vial 02/23/19 06/30/19 06/30/19 Rx Metformin HCl 500 mg PO BID #60 tab 02/23/19 06/30/19 03/23/19 06:30 Rx - History of Present Illness -Gen Adult Nature of Presenting Problems: This is a 59yo male who presents with CC of rash on his chest and pain in his groin. The patient reports that this has been going on several months. Originally he thought it was bug bites but has not seen any bugs. Location of Pain/Injury: reports: other (groin) Onset/Duration: reports: other (2-3 months) Timing: reports: still present Context/Activities at Onset: denies: out of country travel Modifying Factors: improves with: other (antibiotic cream not effective) Associated Symptoms: reports: fever/chills, rash, shortness of breath Review of Systems - Adult - REVIEW OF SYSTEMS - ADULT Constitutional: reports: fever Eyes: reports: dry eyes Ears, Nose, Mouth & Throat: reports: other (nose pain) Cardiovascular: denies: chest pain Respiratory: reports: shortness of breath Gastrointestinal: reports: vomiting Genitourinary: reports: dysuria. denies: discharge Integumentary: reports: rash Hematologic/Lymphatic: reports: swollen lymph nodes Past History - Adult - PAST MEDICAL HISTORY-ADULT Review of Records: reports: Old Records Reviewed Major Childhood Illnesses: reports: denies history Endocrine/Immune: reports: other (pancytopenia) - FAMILY HISTORY Family History: reviewed, not pertinent - SOCIAL HISTORY Smoking: other (smoker) Substance Use: alcohol, marijuana, opiates Alcohol Use Frequency: every day Physical Exam-General - CONSTITUTIONAL General Appearance: appears well, alert, mild distress - EYES Eyes: other (mildly injected conjuctiva) - HEAD, EARS, NOSE, MOUTH & THROAT HENMT: normocephalic/atraumatic, moist mucous membranes - NECK Neck: normal inspection - RESPIRATORY Respiratory: crackles (RLL noted) - CARDIOVASCULAR Cardiovascular: regular rate, rhythm - LYMPHATIC Lymphatic: axilla node tender (bilaterally) - SKIN Integumentary: rash (ulcerating painful lesions noted just above the penis in the groin. Multiple pustules extending up the chest. There is also an ulcerating lesion noted on scrotum) - NEUROLOGIC Neurologic: grossly normal - PSYCHIATRIC Psych/Mental Status: normal mood/affect, normal thought content Progress - PLAN OF CARE/RESULTS Progress/Plan/Lab Results: Vital Signs - 8 hr 06/30/19 17:17 Temperature 97.3 F L Pulse Rate 93 H Respiratory Rate 18 Blood Pressure 128/95 O2 Sat by Pulse Oximetry 100 Laboratory Results - last 24 hr 06/30/19 06/30/19 17:52 17:52 WBC 1.58 L RBC 5.48 Hgb 13.9 L Hct 41.5 L MCV 75.7 L MCH 25.4 L MCHC 33.5 RDW Std Deviation 17.0 H Plt Count 246 MPV 8.1 Immature Gran % (Auto) 0.0 Neut % (Auto) 1.9 L Lymph % (Auto) 73.4 H Butler % (Auto) 23.4 H Eos % (Auto) 0.0 Baso % (Auto) 1.3 H Immature Gran # (Auto) 0.00 Neut # (Auto) 0.03 L* Lymph # (Auto) 1.16 L Butler # (Auto) 0.37 Eos # (Auto) 0.00 Baso # (Auto) 0.02 Sodium 129 L Potassium 3.9 Chloride 92 L Carbon Dioxide 19 L Anion Gap 18 BUN 12 Creatinine 0.8 Estimated GFR/1.73 m2 > 60 BUN/Creatinine Ratio 15 Glucose 222 H Calculated Osmolality 266 Calcium 10.0 Total Bilirubin 0.42 AST 10 ALT 5 L Alkaline Phosphatase 96 Total Protein 8.9 H Albumin 4.0 Globulin 4.9 Albumin/Globulin Ratio 0.8 Orders Category Date Time Status cxr [CHEST-2 VIEWS] [RAD] Stat Exams 06/30/19 17:23 Completed ANAEROBIC CULTURE [RM] Stat Lab 06/30/19 18:47 Uncollected CBC WITH ELECTRONIC DIFF [HEME] Stat Lab 06/30/19 17:52 Results COMPREHENSIVE METABOLIC PANEL [CHEM] Stat Lab 06/30/19 17:52 Completed HIV AB SCREEN [HH] Stat Lab 06/30/19 18:33 Uncollected PROTIME WITH INR [COAG] Stat Lab 06/30/19 17:24 Ordered PTT [COAG] Stat Lab 06/30/19 17:24 Ordered WOUND CULTURE INC GRAM STAIN [RM] Stat Lab 06/30/19 18:47 Uncollected Result Diagrams: 06/30/19 17:52 06/30/19 17:52 - REASSESSMENT Reassessment #1 Status: other (Discussed with hosptialist team who have accepted the patient. Wound cultures from three sites taken. José Miguel give morphine for pain. Discussed hi story of alcholism with the hospitalist who requested the patient recieve 1mg of ativan. Will admit to the hosptialist service.) Departure - Departure Date of Disposition Decision: 06/30/19 Time of Disposition Decision: 20:04 DIAGNOSIS: Ulceration, Rash Neutropenia Qualifiers: Neutropenia type: unspecified Qualified Code(s): D70.9 - Neutropenia, unspecified Leukopenia Qualifiers: Leukopenia type: neutropenia Neutropenia type: unspecified Qualified Code(s): D70.9 - Neutropenia, unspecified Diabetes Qualifiers: Diabetes mellitus type: type 2 Diabetes mellitus complication status: with neurologic complications Diabetes mellitus complication detail: with polyneuropathy Disposition: ADMITTED INPATIENT 09 Certified Medical Emergency: Emergent Condition: Serious Referrals and Follow-Ups: None,PCP [Primary Care Provider] - - Critical Care Note This patient required my direct & personal management of CC.: No Attestation - Physician/ JODI Attestation Patient care was provided by Advanced Practice Provider:: No The physician spent face to face time with patient:: Yes Advanced Practice Provider documentation review:: Supervising physician onsite and consulted in the evaluation and care of this patient. The physician did have a face to face encounter with the patient.
[2019-06-30] MEDS ORDERED: MORPHINE IV ONE (20:14)
[2019-06-30 20:15] LABS: INR 0.93; PROTIME 12.6 Seconds (11.0-16.0)
[2019-06-30 20:16] LABS: PTT 33.7 Seconds (22.3-41.8)
[2019-06-30] MEDS ORDERED: ATIVAN IV ONE (20:25)
[2019-06-30] MEDS ORDERED: TORADOL IV ONE (22:21)
[2019-06-30] MEDS ORDERED: HYDROXYZINE IM ONE (22:21)
[2019-07-01] MEDS ORDERED: PEPCID PO ONE (01:37)
[2019-07-01] MEDS ORDERED: VANCOMYCIN 1 GM/NS 1 GM/250 ML IVPB IV ONE (01:37)
[2019-07-01] MEDS ORDERED: ZOFRAN IV PRN (01:37)
[2019-07-01] MEDS ORDERED: HYDROXYZINE IM PRN (01:37)
[2019-07-01] MEDS ORDERED: ATIVAN IV PRN (01:37)
[2019-07-01] MEDS ORDERED: VANCOMYCIN IV PER PHARMACY MISC SCH (01:37)
--- NOTE | 2019-07-01 02:10 | HISTORY AND PHYSICAL ---
PRIMARY CARE PHYSICIAN: None. REASON FOR ADMISSION: HISTORY OF PRESENT ILLNESS: Mr. Tevin Salcido is a 59-year-old male with longstanding history of alcoholism, COPD, type 2 diabetes, who was last admitted to our facility in January or February for pancytopenia and sub-laryngeal epiglottitis. An extensive workup was done to evaluate the source cause of the patient's. Pancytopenia, and it was noted that his RICHARD was initially elevated but subsequent workup did not find any overt cause for this. He also had a flow cytometry done, and according to the patient all the workup that was done was essentially negative from that standpoint. CEA was done, this was negative. Anemia workup was uneventful, did not show any overt etiology. His A1c back then was 10.8. Bone marrow biopsy according to the patient he informed me that he was told it was negative. Actually I looked at the bone marrow report and it did show hypercellular cells, decreased iron storage, which is a little bit odd in light of the fact that the patient has pancytopenia. However, the patient comes in today because he has a rash on his chest and his groin area, which is pruritic and painful for the last 1 month. He has tried topical [id number] antibiotic medications which have not helped. He has not seen any bugs that have bitten him, but they initially felt that was the cause of his problems, hence the delay in seeking care. He admits to having a 6-month history of night sweats, and a 3-month history of low grade fevers. He also complains of a 1-year history of joint stiffness in his hands and in his feet. He denies any sexual contact and he says that the last time he engaged in any sexual activity was 2-1/2 half years ago. He denies any IV drug abuse. He admits to having also dyspnea on exertion for the last couple of weeks to months, but no orthopnea or PND. No chest pain. No GI or complaints except for mild questionable dysuria but hesitancy and poor urinary flow for several months. No penile discharge. No weight loss. No polyuria, polydipsia or polyphagia. No focal neurological complaints. No history of travel. He used to raise some chickens, but he says he has gotten rid of them over a month ago thinking that they might the cause of some of his problems. REVIEW OF SYSTEMS: A 12 point system review was done. Positive findings per HPI. ALLERGIES: None. HOME MEDICATIONS: The patient is on Humulin N 25 units b.i.d., metformin 500 mg b.i.d., folic acid 0.4 mg daily, Neurontin 100 mg at bedtime. SOCIAL HISTORY: The patient says he only drinks 1 to 2 beers a day, he said he quit several months ago. He smokes about a half to 1 pack a day. No illicit drug use. He lives with his son. FAMILY HISTORY: The patient denies any family history of cancer or dementia in first-degree relatives. LABORATORY DATA: White count is 1600, H H is 14 and 41, MCV is 75, platelet count is 246,000. Neutrophils is only 6% with 64% lymphocytes and 24% monocytes, with atypical lymphocytes being 6. Sodium is 129, anion gap is 18, BUN is 12, creatinine 0.82, glucose 222. PTT is normal. Wound cultures were sent. Chest film is normal. PHYSICAL EXAMINATION: VITAL SIGNS: Temperature is 97.3 degrees, heart rate 93, respirations 18, blood pressure is 128/95, O2 sat is 100% on room air. GENERAL: He is a pleasant middle-aged man who is not in acute distress. He is alert and oriented to person, place and time with normal mood and affect. HEENT: Head is normocephalic and atraumatic. Eyes: AMARIS, EOMI. He is anicteric and not pale. ENT and oropharynx exam is grossly normal. NECK: Supple. No JVD or carotid bruit. The patient has lymph nodes in the right axilla, very few in the left. Lymph nodes are mobile, soft and shotty. The same thing goes for bilateral inguinal lymphadenopathy, which are also mobile, shotty and mildly tender to touch. CHEST: The patient has right lower lobe crepitations, decreased air entry in both lung wick. CARDIOVASCULAR: First and sounds heard. No gallops, murmurs or rubs. Rhythm is regular. ABDOMEN: Full, soft, nontender. No mass or organomegaly. Bowel sounds are normal. RECTAL: Exam is deferred at this time. EXTREMITIES: The patient has good distal pulse volumes, regular, symmetrical. GENITOURINARY: The patient has normal sized testes, no scrotal involvement. No penile discharge noted. No penile rash. He does have a 1 x 2 cm chronic subacute rash with a dried base, slightly raised borders, no exudation noted, and this is located near the pubic symphysis area. No surrounding erythema noted. He has some other smaller lesions which extends anteriorly to his chest. NEUROLOGICAL: No gross focal deficits. SKIN: See above including very small macular papular lesions on the anterior chest and abdominal wall areas, most of them appeared to be chronic looking ulcers. MUSCULOSKELETAL: Exam is grossly normal. ASSESSMENT: 1. Neutropenia, etiology yet to be determined. Could represent a medication- induced agranulocytosis. Etiologies of this cannot be determined at this point in time. It is possible that him being a diabetic meant that he may have been exposed to RAINE inhibitors, which can predispose to this. Autoimmune workup was negative. Also I will recommend that a drug screen be done as cocaine and heroin may contribute to this. It is highly unusual for patients to have an isolated autoimmune condition that will affect exclusively his lymphocytes while affecting other myeloid or red cell producing lines. I would recommend discontinuing all potential medications that could cause this. I did notice that he complained to me he has a history of gout, and is possible he may have been exposed to either colchicine or NSAIDs, which can contribute to this. We may consider using granulocyte colony- stimulating factor, but I will defer Hematology on this matter. In the interim we will start the patient on empiric antibiotics in light of the fact that he has diffuse rashes, which could be due to the fact that he has very low absolute neutrophil counts, less than 100, which exposes him to a lot of infections. We will keep the patient in reverse isolation. 2. Type 2 diabetes, uncontrolled, last A1c was 10.8. Start the patient on Lantus and sliding scale. 3. History of alcoholism. This in and of itself could predispose the patient to host of toxic immune problems. It will also predispose the patient to nutritional deficiencies which may or may not be contributing to his clinical picture. The patient says he is no longer drinking. We will start the patient on thiamine and low-dose Librium with p.r.n. Ativan forestall any withdrawal affects. 4. Chronic obstructive pulmonary disease. My exam did suggest right lower lobe crepitations, which indicate the patient may have a pneumonia. A CT scan has been ordered. I also ordered a CT scan because of the patient's lymphadenopathy to rule out some underlying and potential myelophthisic pathology. This maybe somewhat more likely due to the fact that his prior bone marrow report showed a hypercellular bone marrow. Repeat RICHARD to rule out conditions as Still disease although this is not conclusive. We will consult Hematology to see the patient. Nutritional/trace element deficiency disorders were ordered, and if need be consult Infectious Disease maybe needed case this patient may have either zoonosis since he has an exposure to chickens, and/or he may have one of the chronic genital ulcers like LGV, chancroid or syphilis. cc: Jose Paige MD MTDD
[2019-07-01] MEDS: NS 1,000 ML IV SCH ×2 (02:43→09:13)
[2019-07-01] MEDS: MAXIPIME 1 GM in NS 50 ML IV SCH ×2 (02:43→13:47)
[2019-07-01] MEDS: DOXYCYCLINE PO SCH ×3 (02:44→20:08)
[2019-07-01] MEDS: NEURONTIN PO SCH ×2 (02:45→20:08)
[2019-07-01] MEDS ORDERED: VANCOMYCIN 2,200 MG in NS 500 ML IV ONE (03:00)
[2019-07-01] MEDS: PERCOCET-10 PO PRN ×3 (03:00→20:07)
[2019-07-01 03:58] LABS: RETIC% 1.81 % (0.8-2.1); RETIC-HE 33.3 PG (28.2-36.6)
[2019-07-01 04:03] LABS: BASO# 0.02 X1000 (0.0-0.2); BASO% 1.1 % (0.0-0.8); HEMATOCRIT 38.3 % (42.0-52.0); HEMOGLOBIN 12.8 g/dL (14.0-18.0); LYMPH# 1.38 X1000 (1.2-3.4); LYMPH% 76.7 % (20.5-51.1); MCH 25.7 PG (27-31); MCHC 33.4 g/dL (33-37); MCV 76.8 FL (81-99); MONO# 0.39 X1000 (0.11-0.59); MONO% 21.7 % (1.7-9.3); NEUT% 0.5 % (42.2-75.2); PLT 227 X1000 (130-400); RBC 4.99 XMIL (4.7-6.1); RDW 17.1 % (11.5-14.5)
[2019-07-01 04:06] LABS: NEUT# 0.01 X1000 (1.4-6.5)
[2019-07-01 04:35] LABS: AGAP 14; ALB/GLOB RATIO 0.8; ALBUMIN 3.5 g/dL (3.5-5.0); ALKALINE PHOSPHATASE 89 U/L (32-122); BUN 18 mg/dL (8-22); CALCIUM 8.9 mg/dL (8.8-10.2); CHLORIDE 96 mmol/L (98-107); COSMO 274; CREATININE 0.9 mg/dL (0.7-1.2); ESTIMATED GFR > 60; GLUCOSE 210 mg/dL (70-104); GOT 9 U/L (10-34); GPT < 5 U/L (10-44); MAGNESIUM 1.5 mg/dL (1.5-2.7); POTASSIUM 4.3 mmol/L (3.5-5.1); SODIUM 133 mmol/L (136-145); TCO2 23 mmol/L (25-35); TOTAL BILIRUBIN 0.31 mg/dL (0.20-1.00); TOTAL PROTEIN 7.9 g/dL (6.3-8.3)
[2019-07-01 05:05] LABS: FERRITIN 2478 ng/mL (30-400)
[2019-07-01] MEDS: HUMALOG SUBQ SCH ×4 (06:36→20:18)
--- NOTE | 2019-07-01 08:15 | Diag Imaging Result Doc PS360 ---
EXAM: CT THORAX W/CONTRAST 07/01/2019 HISTORY: lymphadenopathy neutropenia TECHNIQUE: This exam was performed using automated exposure control, adjustment of mA or kV according to patient size, and/or use of iterative reconstruction technique. COMMENT: The current study is compared with the previous examination of 02/18/2019. There are some calcified nodes in the subcarina and both celina. There is extensive coronary calcification. There is no evidence of acute bony abnormality and no abnormal fluid collections are present. There are some emphysematous changes with fairly large blebs in the left apex. The degree of dependent atelectasis seen on the previous study has diminished on the current examination. There may be some subpleural atelectasis versus fibrosis in the left lower lobe. There is also a minimal platelike opacity in the superior segment of the right lower lobe which is likely due to atelectasis or fibrosis. No pulmonary consolidation is present otherwise. IMPRESSION: No evidence of significant adenopathy or pulmonary parenchymal disease. COPD. Electronically signed by Jimmy Michael 07/01/2019 8:12 AM
--- NOTE | 2019-07-01 08:29 | Diag Imaging Result Doc PS360 ---
EXAM: CT ABDOMEN/PELVIS W/WO CONTRAS 07/01/2019 HISTORY: lymphadenopathy pancytopenia rash TECHNIQUE: This exam was performed using automated exposure control, adjustment of mA or kV according to patient size, and/or use of iterative reconstruction technique. COMMENT: The current study is compared to the previous examination of 02/18/2019. There is atelectasis or fibrosis adjacent to the pleural surface posterior laterally in the left lower lobe. This was not as clearly present on the previous examination. There is atherosclerotic calcification in the inferior intraventricular coronary artery. This was present previously. Otherwise the appearance of the included portions of the chest are unremarkable. There are calcified granulomata in the spleen. There is no evidence of nephrolithiasis. There are some small calcified gallstones in the gallbladder. The gallbladder is not distended. There are atherosclerotic calcifications in the aorta. There is no evidence of aneurysm and the mesenteric and renal arteries are patent. The spleen is slightly enlarged measuring 13.5 cm transversely. This has not changed significantly since the previous study. The adrenal glands are slightly hyperplastic in appearance which was also the case previously. The pancreas is normal in appearance. There is no evidence of hydronephrosis. There is a large cyst arising anteriorly from the left kidney which was also present previously. There are some prominent left periaortic nodes below the level of the renal pedicle but this has not changed appreciably since the previous study. There is no evidence of bowel obstruction. There is a fair amount of stool in the right colon. Pelvis: The appendix is normal in appearance. There is diverticulosis present in the sigmoid colon and at the junction of the distal descending and proximal sigmoid there is inflammation surrounding the one of the diverticula consistent with mild acute diverticulitis. There is no apparent abscess. There is no significant free fluid. The urinary bladder is not distended. There are spondylotic changes in the lumbar spine. There is no evidence of acute bony abnormality. IMPRESSION: 1. Stable splenomegaly. 2. Proximal sigmoid diverticulitis. Constipation. This report was discussed with Michelle on 07/01/2019 at 0827 and was readback. Electronically signed by Jimmy Michael 07/01/2019 8:27 AM
[2019-07-01] MEDS: LIBRIUM PO SCH ×3 (09:12→17:47)
[2019-07-01] MEDS: FOLIC ACID PO SCH (09:12)
[2019-07-01] MEDS: LANTUS INSULIN SUBQ SCH (09:13)
[2019-07-01 09:46] LABS: HIV ANTIBODY SCREEN SEE COMMENTS
[2019-07-01] MEDS ORDERED: GRANIX SUBQ SCH (15:45)
[2019-07-01] MEDS: VANCOMYCIN 1,800 MG in NS 500 ML IV SCH (17:47)
--- NOTE | 2019-07-01 18:36 | PROGRESS NOTE ---
DATE: 07/01/2019 INTERVAL HISTORY: Mr. Slacido was admitted for a rash over chest and groin, which was pruritic and painful, night sweats of 6 months, and a low-grade fever of 3 months. He also had some nausea, abdominal pain. He is a poor historian. Workup detected he probably had sigmoid diverticulitis. He was admitted for intravenous fluids and intravenous antibiotics. Currently, patient denies any chest pain, shortness of breath. He is feeling nauseous and having some abdominal cramps. He is itchy all over, especially the trunk. He states that he probably got it from the chickens that he had about 2 months ago. He denies any sexually transmitted disease. He also complains of stiffness of his joints in hands and legs. PHYSICAL EXAMINATION: Vital Signs: Temperature 97.4 degrees, pulse 68, respiratory rate 18, blood pressure 129/81, saturating 100% room air. PHYSICAL EXAMINATION: General: Does not appear in acute distress. Oral Cavity: Moist. Lungs: Air entry bilaterally equal. No wheeze or rhonchi. Heart: Sounds are normal. No murmur or gallop. Abdomen: Soft, nontender. No hepatosplenomegaly. Extremities: No lower extremity edema. Skin: He has multiple pruritic ulcerated macules, 2 patches affecting torso, 1 prominent lesion which is ulcerated and painful over lower anterior pelvis skin. LABS: Suggestive of leukopenia, neutropenia, and agranulocytosis, hyponatremia, hypochloremia. Normal kidney function. His ferritin level is elevated. MICROBIOLOGY: Wound culture is growing gram-positive cocci. IMAGING: Chest CT showing no evidence of significant adenopathy or pulmonary parenchymal disease. He does have evidence of COPD. Abdomen/pelvis CT has splenomegaly, sigmoid diverticulitis, and constipation. Chest x-ray does not have evidence of acute disease. ASSESSMENT AND PLAN: 1. Neutropenia, unclear etiology. Previously, his HIV was negative. I will follow up with hepatitis panel, micronutrient deficiency, repeat RICHARD, and gonorrhea and chlamydia screen. Hematology on board. I will appreciate if he would need a repeat bone marrow biopsy. 2. Multiple skin lesions. Follow up wound culture results. 3. Acute sigmoid diverticulitis. His symptoms are weak with regard to diverticulitis. He has been eating, but he occasionally states he has abdominal cramps and nausea. I will keep him on intravenous antibiotic. 4. Other history of uncontrolled type 2 diabetes mellitus, insulin dependent; history of alcoholism; and history of chronic obstructive pulmonary disease are currently stable. I will keep him on Librium, insulin, as needed lorazepam. 5. Disposition. Continue to monitor patient inside the hospital. Plan of care discussed with him. All of his questions have been answered. cc: Pierre Chanel MD
[2019-07-01 20:20] LABS: IRON SATURATION 45 %; TIBC 250 ug/dL; TOTAL IRON 112 ug/dL (53-167); UNBOUND IRON 138 ug/dL (112-346)
[2019-07-01] MEDS ORDERED: GRANIX SUBQ ONE (20:30)
--- NOTE | 2019-07-01 21:01 | HEMO/ONC CONSULTATION ---
DATE: 07/01/2019 ADMITTING PHYSICIAN: Dr. Paige. REQUESTING PHYSICIAN: Dr. Paige. We appreciate this consult. CHIEF COMPLAINT: Pancytopenia. HISTORY OF PRESENT ILLNESS: Mr. Salcido is a 59-year-old, male, with a longstanding history of alcoholism, COPD, diabetes mellitus type 2. The patient was admitted in January, secondary to pancytopenia and sub-laryngeal epiglottitis, and the patient underwent extensive workup. Workup was essentially negative. The patient has been followed in clinic by Dr. Cintron regularly since that time. The patient reported a negative bone marrow biopsy, but bone marrow report does report hypercellular cells with decreased iron storage. The patient presented to [facility] secondary to rash on the chest and in the groin region. The patient also reports that he has had a 6-month history of night sweats and 3 months of low-grade fevers. The patient reports that he has had some dyspnea on exertion for several weeks now. We are consulted as the patient is known to us with a history of pancytopenia. Of note, the patient did undergo a PET scan, whole body x2. However, the patient's prep was poor and both PET scans were nondiagnostic. After review of entire workup in our clinic, bone marrow biopsy did reveal leukopenia with severe neutropenia with no blasts or atypical leukocytes. The patient had a slight microcytic anemia. The patient did have hypercellular marrow at 60 to 70 percent with an erythroid predominance and a myeloid left shift. Iron storage was noted to be decreased. Flow cytometry revealed increased T-cells. FISH was negative. REVIEW OF SYSTEMS: A 12-point review of systems was obtained and is negative, except for mentioned in the HPI. MEDICATIONS ON ADMISSION: 1. Humulin-N insulin. 2. Metformin. 3. Folic acid. 4. Neurontin. ALLERGIES: None. SOCIAL HISTORY: The patient reports that he drinks 1 to 2 beers daily, but has a known history of alcohol abuse. Additionally, he reports that he smokes 1/2 pack to 1 pack of cigarettes daily. He denies illicit drug use. FAMILY HISTORY: Negative for hematologic or oncologic disease. PHYSICAL EXAMINATION: Mr. Salcido is a 59-year-old, male, lying supine in bed, in no immediate distress.Vital Signs: Temperature is 98.4 degrees, blood pressure 105/66, heart rate 75, respirations 18, O2 saturation is 99% on room air. HEENT: Normocephalic, atraumatic. Mucous membranes are pink and moist. Sclerae anicteric. Extraocular movements intact. Neck: Supple. Lungs: Clear to auscultation bilaterally. Chest expansion is equal bilaterally. Cardiovascular: S1, S2 is heard without murmur, rub, or gallop. Abdomen: Nondistended. Extremities: No clubbing, cyanosis, or edema. Dermatologic: No rashes, bruises, or lesions. Neurologic: The patient is awake, alert, and oriented x3. He has no focal deficit and gait is normal. LABORATORY DATA: Percent reticulocyte 1.81, reticulocyte 33.3, ANC is 10, hemoglobin 12.8, hematocrit 38.3, white blood cell count is 1.80, platelets 227,000. Sodium 133, potassium 4.3, chloride 96, CO2 is 23, BUN 18, creatinine 0.9, and glucose is 210. Ferritin 2478. TSH is 1.70. B12 is 702. Folate 7.7. CRP is 13.30. IMAGING STUDIES: CT of the chest reveals no significant adenopathy with positive COPD. ASSESSMENT AND PLAN: 1. Pancytopenia, known, with previous extensive workup being negative, except for bone marrow biopsy with results as in history of present illness. We will continue further workup at this time. Of note, ANC is decreased to 10, with a white blood cell count of 1800. The patient will be placed on Granix daily at this time. We will continue to monitor closely. 2. ETOH abuse with withdrawal. The patient is currently on Librium. Additionally, he is on thiamine replacement. 3. Diabetes mellitus type 2. Stable at this time. 4. Chronic obstructive pulmonary disease. Stable at this time. We will follow along with you and make further recommendations pending outcomes. The above reflects the history, exam, assessment, and plan of Dr. Cintron. Dictated by SAPNA Turcios for Nahum Cintron MD cc: SAPNA Turcios MD
[2019-07-02] MEDS: MAXIPIME 1 GM in NS 50 ML IV SCH ×2 (01:53→13:01)
[2019-07-02] MEDS: VANCOMYCIN 1,800 MG in NS 500 ML IV SCH ×2 (03:21→17:00)
[2019-07-02] MEDS: HUMALOG SUBQ SCH ×4 (08:09→21:40)
[2019-07-02] MEDS: LANTUS INSULIN SUBQ SCH (09:32)
[2019-07-02] MEDS: FOLIC ACID PO SCH (09:32)
[2019-07-02] MEDS: LIBRIUM PO SCH ×3 (09:32→16:59)
[2019-07-02] MEDS: DOXYCYCLINE PO SCH ×2 (09:32→21:40)
[2019-07-02 10:39] LABS: HEMATOCRIT 39.9 % (42.0-52.0); HEMOGLOBIN 13.4 g/dL (14.0-18.0); LYMPH% 78.3 % (20.5-51.1); MCH 25.8 PG (27-31); MCHC 33.6 g/dL (33-37); MCV 76.9 FL (81-99); MONO% 13.9 % (1.7-9.3); MPV 7.6 FL (7.4-10.4); NEUT% 6.1 % (42.2-75.2); PLT 208 X1000 (130-400); RBC 5.19 XMIL (4.7-6.1); RDW 17.4 % (11.5-14.5); WBC 1.15 X1000 (4.8-10.8)
[2019-07-02 10:40] LABS: BASO# 0.02 X1000 (0.0-0.2); BASO% 1.7 % (0.0-0.8); MONO# 0.16 X1000 (0.11-0.59)
[2019-07-02 10:44] LABS: NEUT# 0.07 X1000 (1.4-6.5)
[2019-07-02 11:22] LABS: LYMPHS 84 % (21-51); MONO 2 % (1-9); SEGS 14 % (42-75)
[2019-07-02 11:54] LABS: AGAP 13; BUN 14 mg/dL (8-22); CHLORIDE 101 mmol/L (98-107); COSMO 281; CREATININE 0.7 mg/dL (0.7-1.2); ESTIMATED GFR > 60; GLUCOSE 255 mg/dL (70-104); MAGNESIUM 1.4 mg/dL (1.5-2.7); POTASSIUM 4.5 mmol/L (3.5-5.1); SODIUM 136 mmol/L (136-145); TCO2 22 mmol/L (25-35)
[2019-07-02 12:49] LABS: HEPATITIS PROFILE ACUTE SEE COMMENTS
[2019-07-02] MEDS: MAGNESIUM SULFATE 2 GM/S.W.I. 2 GM/50 ML IVPB IV SCH ×4 (13:02→23:49)
[2019-07-02] MEDS: GRANIX SUBQ SCH (17:00)
[2019-07-02] MEDS: VANCOMYCIN 1,400 MG in NS 250 ML IV SCH (21:38)
[2019-07-02] MEDS: DULCOLAX PR SCH (21:40)
[2019-07-02] MEDS: NEURONTIN PO SCH (21:40)
[2019-07-02] MEDS: MIRALAX PO SCH (21:40)
[2019-07-02] MEDS: PERCOCET-10 PO PRN (21:45)
--- NOTE | 2019-07-02 22:03 | PROGRESS NOTE ---
DATE: 07/02/2019 INTERVAL HISTORY: No acute events overnight. SUBJECTIVE: Patient is feeling fine. He had a meal today. He has not had a bowel movement. He denies new complaints. VITALS: Temperature 98.4 degrees, pulse 80, respiratory rate 18, blood pressure 95/76, saturating 100 percent on room air. PHYSICAL EXAMINATION: General: Does not appear in any acute distress. Oral cavity is moist. Air entry bilaterally equal. No wheeze, rhonchi, or crackles. Cardiovascular: S1, S2 normal. No murmur, rub, or gallop. Abdomen: Soft, nontender. No hepatosplenomegaly. No lower extremity edema. He has multiple pruritic, ulcerated macules affecting torso. LABORATORY: Continues to have leukopenia, neutropenia, normal electrolytes. Microbiology, wound culture is growing MRSA. A lot of other labs are pending. ASSESSMENT AND PLAN: 1. Neutropenia. This could be related to bone marrow suppression by longstanding alcohol. Patient used to drink 1 liter up to 1 pint every day for about 20-30 years, and he quit about a year or 2 ago, and his bone marrow might be recovering. Hematology on board. 2. Multiple skin lesions with methicillin-resistant Staphylococcus aureus infection. I will continue patient on oral doxycycline. 3. Acute sigmoid diverticulitis. Continue intravenous vancomycin and cefepime. 4. History of uncontrolled type 2 diabetes mellitus, insulin dependent; history of alcoholism, history of chronic obstructive pulmonary disease, currently stable. I will keep him on Librium, insulin, as-needed lorazepam. 5. Disposition. Continue to monitor patient inside the hospital for neutropenia. Plan of care discussed with him. His questions have been answered. cc: Pierre Chanel MD
--- NOTE | 2019-07-02 23:37 | ECHO REPORT ---
ORDER DATE: 07/02/2019 MEASUREMENTS: Septal thickness 1.2, left ventricular internal diameter in diastole 4.7, left ventricular internal diameter in systole 3.5, left atrium 3.2. SUMMARY: 1. Technically difficult study due to limited acoustic window quality. 2. Aortic valve is trileaflet and opens normally on 2-dimensional images. Peak gradient across the aortic valve is less than 10 mmHg. Mitral and tricuspid valves are without evidence of structural abnormality, with very mild tricuspid regurgitation. Pulmonic valve is not well demonstrated. The aortic root is normal in size. 3. Normal left ventricular chamber size with mild concentric left ventricular hypertrophy is demonstrated. Estimated left ventricular ejection fraction of approximately 60%. No regional wall motion abnormalities are evident. Left atrium, right atrium, right ventricle are normal in size with grossly preserved right ventricular systolic function. The interatrial septum appears lipomatous. 4. No pericardial effusion. 5. Appearance of inferior vena cava suggests normal central venous pressure. CONCLUSIONS: 1. Technically difficult study. 2. Very mild tricuspid regurgitation. 3. Mild concentric left ventricular hypertrophy with estimated left ventricular ejection fraction of approximately 60%. 4. Lipomatous interatrial septum. cc: MD Pierre Rodas MD
[2019-07-03] MEDS: TYLENOL PO PRN ×2 (01:19→21:42)
[2019-07-03] MEDS: MAXIPIME 1 GM in NS 50 ML IV SCH ×2 (02:55→14:47)
[2019-07-03] MEDS: HUMALOG SUBQ SCH ×4 (05:59→21:42)
[2019-07-03 08:38] LABS: AGAP 9; ALB/GLOB RATIO 0.8; ALBUMIN 3.5 g/dL (3.5-5.0); ALKALINE PHOSPHATASE 85 U/L (32-122); BUN 13 mg/dL (8-22); CALCIUM 8.6 mg/dL (8.8-10.2); CHLORIDE 97 mmol/L (98-107); COSMO 263; CREATININE 0.8 mg/dL (0.7-1.2); ESTIMATED GFR > 60; GLUCOSE 104 mg/dL (70-104); GOT 10 U/L (10-34); GPT 5 U/L (10-44); SODIUM 131 mmol/L (136-145); TCO2 25 mmol/L (25-35); TOTAL BILIRUBIN 0.65 mg/dL (0.20-1.00); TOTAL PROTEIN 7.9 g/dL (6.3-8.3)
[2019-07-03 08:41] LABS: BASO# 0.01 X1000 (0.0-0.2); BASO% 0.8 % (0.0-0.8); HEMATOCRIT 40.7 % (42.0-52.0); HEMOGLOBIN 13.4 g/dL (14.0-18.0); LYMPH# 0.92 X1000 (1.2-3.4); LYMPH% 69.1 % (20.5-51.1); MCH 25.6 PG (27-31); MCHC 32.9 g/dL (33-37); MCV 77.7 FL (81-99); MONO% 30.1 % (1.7-9.3); MPV 8.4 FL (7.4-10.4); PLT 199 X1000 (130-400); RBC 5.24 XMIL (4.7-6.1); RDW 17.6 % (11.5-14.5); WBC 1.33 X1000 (4.8-10.8)
[2019-07-03] MEDS: VANCOMYCIN 1,400 MG in NS 250 ML IV SCH ×3 (08:57→22:15)
[2019-07-03] MEDS: MIRALAX PO SCH ×2 (08:58→21:42)
[2019-07-03] MEDS: FOLIC ACID PO SCH (09:00)
[2019-07-03] MEDS: DOXYCYCLINE PO SCH (09:00)
[2019-07-03] MEDS: PERCOCET-10 PO PRN ×2 (09:00→17:46)
[2019-07-03] MEDS: LIBRIUM PO SCH ×2 (09:01→15:30)
[2019-07-03] MEDS: LANTUS INSULIN SUBQ SCH (09:02)
[2019-07-03] MEDS: DULCOLAX PR SCH ×2 (09:03→21:42)
[2019-07-03 09:28] LABS: BANDS 1 % (0-1); MONO 24 % (1-9); SEGS 1 % (42-75)
[2019-07-03 09:29] LABS: LYMPHS 74 % (21-51)
[2019-07-03 09:30] LABS: HYPOCHROM 1+
[2019-07-03] MEDS: NEURONTIN PO SCH (17:46)
[2019-07-03] MEDS: LACTULOSE PO SCH ×2 (17:48→21:42)
--- NOTE | 2019-07-03 20:26 | PROGRESS NOTE ---
DATE: 07/03/2019 INTERVAL HISTORY: No acute events overnight. He is denying any new complaints. He states he has trouble swallowing, especially meat pieces where he has to throw up; however, he is able to swallow liquids without any trouble. I discussed with him about changing his diet. He denies any abdominal pain. He has not had a bowel movement. OBJECTIVE: Vital signs: Temperature 97.9 degrees, pulse 78, respiratory rate is 19, blood pressure 100/79, saturating 99% on room air. On physical examination he does have hoarseness of voice. There appears to be clubbing of his fingers. No pallor, cyanosis or icterus. Air entry bilaterally equal. No wheeze, rhonchi or crackles. S1, S2 normal. No murmur, rub or gallop. Abdomen is soft, nontender. No lower extremity edema. He has multiple ulcerated macules affecting torso and pubic region. LABORATORY DATA: He continues to have leukopenia, especially neutropenia. His neutrophil count is 0. Normal kidney function. His workup so far has been unremarkable. Microbiology: Wound culture is growing MRSA. ASSESSMENT AND PLAN: 1. Neutropenia. Possibly related to chronic alcohol use of up to 1 L to 1 pint every day for 20- 30 years, which he quit about 2 years ago. Hematology on board. Continue filgrastim subcutaneous daily. 2. Multiple skin lesions with methicillin-resistant Staphylococcus aureus infection, likely staphylococcal folliculitis. Continue the patient on intravenous vancomycin. Eventually he may need Dermatology evaluation outpatient. 3. Acute sigmoid diverticulitis. Continue intravenous vancomycin and cefepime, and change diet to gastrointestinal soft. 4. History of uncontrolled type 2 diabetes mellitus, insulin-dependent; history of alcoholism; history of chronic obstructive pulmonary disease. Currently all are stable. I will keep him on Lantus and sliding scale insulin. He has not shown any signs of withdrawal, so I will stop the benzodiazepine. 5. Disposition: We will continue to monitor the patient inside the hospital for neutropenia. Plan of care discussed with him. All questions have been answered. cc: Pierre Chanel MD
[2019-07-03] MEDS: GRANIX SUBQ SCH (21:42)
[2019-07-04] MEDS: MAXIPIME 1 GM in NS 50 ML IV SCH ×2 (01:59→15:51)
[2019-07-04] MEDS: PERCOCET-10 PO PRN ×2 (01:59→11:15)
[2019-07-04] MEDS: HUMALOG SUBQ SCH ×3 (06:33→17:48)
[2019-07-04] MEDS: MIRALAX PO SCH (11:14)
[2019-07-04] MEDS: VANCOMYCIN 1,400 MG in NS 250 ML IV SCH (11:14)
[2019-07-04] MEDS: LACTULOSE PO SCH (11:15)
[2019-07-04] MEDS: DULCOLAX PR SCH (11:15)
[2019-07-04] MEDS: FOLIC ACID PO SCH (11:15)
[2019-07-04] MEDS: LANTUS INSULIN SUBQ SCH (11:18)
[2019-07-04] MEDS: NEURONTIN PO SCH ×3 (11:22→19:05)
[2019-07-04] MEDS ORDERED: FLEET MINERAL OIL ENEMA PR ONE (13:51)
--- NOTE | 2019-07-04 14:18 | Diag Imaging Result Doc PS360 ---
EXAM: ABDOMEN FLAT/UPRIGHT INDICATION: Hypogastric pain TECHNIQUE: 2 views COMPARISON: None. FINDINGS: There is a large amount of stool seen throughout the colon suggesting constipation. There is no obstructive bowel pattern. There is no evidence of large volume free abdominal gas. There is no evidence of organomegaly. IMPRESSION: Findings suggestive of constipation. No definite acute pathology by plain radiograph, otherwise. Electronically signed by Alfonso Yang 07/04/2019 2:16 PM
--- NOTE | 2019-07-04 15:11 | PROGRESS NOTE ---
DATE: 07/04/2019 INTERVAL HISTORY: No acute events overnight. He did not have any episodes of nausea or vomiting. He is complaining of hypogastric pain. He has not had any bowel movements. He is complaining of generalized weakness. VITALS: Temperature 97.6 degrees, pulse 77, respiratory rate 18, blood pressure 109/67, saturating 100% on room air. PHYSICAL EXAMINATION: General: Does not appear in acute distress. Oral cavity is moist. He has hoarseness of voice and marked clubbing. No pallor, cyanosis or icterus. Lungs: Air entry bilaterally equal. No wheeze, rhonchi, crackles. Cardiovascular: S1, S2 normal. No murmur or gallop. Abdomen: Soft, nontender. He has healing superficial ulcers of his skin affecting torso and hypogastric region. He does have mild tenderness in hypogastric region. Active bowel sounds no lower extremity edema. He is alert and oriented x3. No CBC or BMP today. His blood sugars are unremarkable. ASSESSMENT AND PLAN: 1. Neutropenia, possibly related to chronic alcohol use of up to 1 pint every day for 20 to 30 years which he quit about 2 years ago. Hematology on board. Continue filgrastim sulfate subcutaneously. Follow-up QuantiFERON gold, parvovirus B19 antibody. 2. Multiple skin lesions with MRSA infection, likely because of Staphylococcus folliculitis. Continue intravenous vancomycin. Outpatient dermatology evaluation. I will also keep him on intravenous vancomycin cefepime for his profound neutropenia. 3. Acute sigmoid diverticulitis. Continue intravenous cefepime and continue GI soft diet. 4. Constipation. Continue aggressive bowel regimen with MiraLAX lactulose bisacodyl and give enema. 5. He does have history of uncontrolled diabetes mellitus, insulin-dependent type 2, however his blood sugars are within acceptable range during this admission. I will continue him on Lantus and sliding scale insulin; prior history of alcoholism, which he quit 2 years ago without any signs of withdrawal. 6. Disposition: Awaiting improvement in CBC. Plan of care discussed with him. His questions have been answered. cc: Pierre Chanel MD
[2019-07-04] MEDS: GRANIX SUBQ SCH (19:05)
[2019-07-04] MEDS ORDERED: MOVANTIK PO ONE (21:14)
[2019-07-05] MEDS: VANCOMYCIN 1,400 MG in NS 250 ML IV SCH ×2 (00:13→08:22)
[2019-07-05] MEDS: MIRALAX PO SCH ×3 (00:16→20:55)
[2019-07-05] MEDS: LACTULOSE PO SCH ×3 (00:17→20:57)
[2019-07-05] MEDS: PERCOCET-10 PO PRN ×3 (00:21→15:47)
[2019-07-05] MEDS: DULCOLAX PR SCH ×3 (00:22→21:02)
[2019-07-05] MEDS: HUMALOG SUBQ SCH ×5 (00:29→21:00)
[2019-07-05] MEDS: MAXIPIME 1 GM in NS 50 ML IV SCH ×2 (03:17→15:47)
[2019-07-05 07:46] LABS: CALCIUM 8.5 mg/dL (8.8-10.2)
[2019-07-05 08:12] LABS: AGAP 11; BUN 16 mg/dL (8-22); CHLORIDE 95 mmol/L (98-107); COSMO 261; CREATININE 0.9 mg/dL (0.7-1.2); ESTIMATED GFR > 60; GLUCOSE 115 mg/dL (70-104); POTASSIUM 4.3 mmol/L (3.5-5.1); SODIUM 129 mmol/L (136-145); TCO2 23 mmol/L (25-35)
[2019-07-05 08:16] LABS: BASO# 0.04 X1000 (0.0-0.2); BASO% 1.9 % (0.0-0.8); EOS# 0.01 X1000 (0.0-0.7); EOS% 0.5 % (0.0-10.0); HEMATOCRIT 38.7 % (42.0-52.0); HEMOGLOBIN 12.7 g/dL (14.0-18.0); LYMPH# 1.24 X1000 (1.2-3.4); LYMPH% 59.3 % (20.5-51.1); MCH 25.7 PG (27-31); MCHC 32.8 g/dL (33-37); MCV 78.3 FL (81-99); MONO# 0.74 X1000 (0.11-0.59); MONO% 35.4 % (1.7-9.3); MPV 8.7 FL (7.4-10.4); NEUT# 0.06 X1000 (1.4-6.5); NEUT% 2.9 % (42.2-75.2); PLT 141 X1000 (130-400); RBC 4.94 XMIL (4.7-6.1); WBC 2.09 X1000 (4.8-10.8)
[2019-07-05] MEDS: NEURONTIN PO SCH ×3 (08:23→16:56)
[2019-07-05] MEDS: FOLIC ACID PO SCH (08:23)
[2019-07-05] MEDS: LANTUS INSULIN SUBQ SCH (08:26)
[2019-07-05 09:26] LABS: LYMPHS 62 % (21-51); MONO 26 % (1-9); NRBC 1 % (0-0); SEGS 2 % (42-75)
[2019-07-05] MEDS: THERA M PLUS PO SCH (13:11)
[2019-07-05] MEDS: TYLENOL PO PRN ×2 (13:14→20:58)
--- NOTE | 2019-07-05 13:59 | PROGRESS NOTE ---
DATE: 07/05/2019 INTERVAL HISTORY: No acute events overnight. He had two large bowel movements, after which he started feeling better. He complains of some lower abdominal cramp. However, he is able to eat and drink. He is passing gas, and now has good bowel movements. OBJECTIVE: Current Vital Signs: Temperature 98.4 degrees, pulse 81, respiratory rate 20, blood pressure 103/65, saturating 98% on room air. General: He does not appear in any acute distress. He has marked clubbing of bilateral hands. No pallor, cyanosis, icterus. He has hoarseness of voice. Lungs: Air entry bilaterally equal. No wheeze, rhonchi, or crackles. S1, S1 normal. No murmur or gallop. Abdomen: Soft, nontender. No hepatosplenomegaly, except mild tenderness in hypogastric region. Active bowel sounds. Extremities: No lower extremity edema. Neurologic: He is alert and oriented x3. He does have hyperesthesia affecting bilateral hands and feet. Skin: His skin of legs is shiny. He has multiple healing pustules affecting torso. LABORATORY DATA: Improving WBC count. His hemoglobin is normal. His platelets are also normal. ASSESSMENT AND PLAN: 1. Neutropenia related to chronic alcohol use of up to 1 pint every day for 20 to 30 years, which he quit about 2 years ago. Continue filgrastim subcutaneously. Parvovirus B19 IgG was positive. However, IgM was negative. His QuantiFERON test is in lab. Vitamin B2 and B6 have not come back. Most of electrolytes our largely within or close to normal limits. I will keep him on multivitamin with mineral tablet since he has also been complaining of weakness. 2. Methicillin-resistant staphylococcus aureus folliculitis affecting skin of torso. Intravenous vancomycin should take care of it, and his folliculitis lesions are already healing. I am keeping intravenous vancomycin and intravenous cefepime for his profound neutropenia. 3. Acute sigmoid diverticulitis, now appears to have resolved. He does have mild lower abdominal discomfort, but he is tolerating diet without any discomfort. I advised him outpatient gastrointestinal evaluation for his dysphagia. 4. Constipation, now resolved. Continue bowel regimen, including MiraLAX, lactulose, and bisacodyl. 5. Others. 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 6. Disposition. I am awaiting slight improvement in neutropenia. After that, I will have a discussion with Hematology, after which I will consider discharging him sometime next week. cc: Pierre Chanel MD
[2019-07-05] MEDS: GRANIX SUBQ SCH (17:41)
[2019-07-06] MEDS: PERCOCET-10 PO PRN ×3 (00:46→16:27)
[2019-07-06] MEDS: MAXIPIME 1 GM in NS 50 ML IV SCH ×2 (01:08→15:07)
[2019-07-06] MEDS: TYLENOL PO PRN (04:06)
[2019-07-06 05:41] LABS: BASO# 0.05 X1000 (0.0-0.2); BASO% 2.4 % (0.0-0.8); HEMATOCRIT 38.2 % (42.0-52.0); HEMOGLOBIN 12.7 g/dL (14.0-18.0); LYMPH# 1.11 X1000 (1.2-3.4); LYMPH% 52.6 % (20.5-51.1); MCH 26.1 PG (27-31); MCHC 33.2 g/dL (33-37); MCV 78.6 FL (81-99); MONO# 0.95 X1000 (0.11-0.59); MPV 8.4 FL (7.4-10.4); PLT 113 X1000 (130-400); RBC 4.86 XMIL (4.7-6.1); RDW 18.2 % (11.5-14.5); WBC 2.11 X1000 (4.8-10.8)
[2019-07-06] MEDS: HUMALOG SUBQ SCH ×4 (06:21→21:24)
[2019-07-06 08:18] LABS: BANDS 4 % (0-1); BASO 1 % (0-1); LYMPHS 59 % (21-51); MONO 25 % (1-9); NRBC 1 % (0-0); SEGS 5 % (42-75)
[2019-07-06] MEDS: LACTULOSE PO SCH ×2 (09:51→21:22)
[2019-07-06] MEDS: NEURONTIN PO SCH ×3 (09:51→19:29)
[2019-07-06] MEDS: THERA M PLUS PO SCH (09:51)
[2019-07-06] MEDS: FOLIC ACID PO SCH (09:51)
[2019-07-06] MEDS: DULCOLAX PR SCH ×2 (09:52→21:25)
[2019-07-06] MEDS: LANTUS INSULIN SUBQ SCH (09:53)
[2019-07-06] MEDS: MIRALAX PO SCH ×2 (09:53→21:22)
[2019-07-06] MEDS: VANCOMYCIN 1,400 MG in NS 250 ML IV SCH (12:33)
[2019-07-06] MEDS: GRANIX SUBQ SCH (19:29)
--- NOTE | 2019-07-06 20:50 | PROGRESS NOTE ---
DATE: 07/06/2019 INTERVAL HISTORY: No acute events overnight. He had documented bowel movement. He is feeling better. He is feeling slightly stronger. He still complains of arthritic and neuropathic pain in bilateral hands and feet and wanted me to start him on muscle relaxant. VITAL SIGNS: He has been afebrile with temperature of 97.6 degrees, pulse 76, respiratory rate 20, blood pressure 117/70, saturating 98% on room air. PHYSICAL EXAMINATION: General: Not in any acute distress. HEENT: Oral cavity is moist. No pharyngeal congestion or exudate. Lungs: Air entry bilaterally equal. No wheeze, rhonchi, crackles. Cardiovascular: S1, S2 normal. No murmur, rub, or gallop. Abdomen: Soft, nontender. He complains of hypogastric region slight pain but no real tenderness. No rebound or rigidity. No hepatosplenomegaly. Active bowel sounds. Extremity: No lower extremity edema. Neurologic: He is alert oriented x3. He has arthritis and likely bony spur affecting metacarpophalangeal joints of both hands, clubbing. Skin: He has superficial ulcers of folliculitis affecting skin of his torso and perineal region which are healing. ASSESSMENT AND PLAN: 1. Neutropenia and leukopenia related to chronic alcohol use of up to 1 pint every day for 20 to 30 years, which he quit about 1 and half years ago. Continue filgrastim subcutaneously. Most of the workup has been unremarkable, though, he did have parvovirus B19 IgG. I will continue him on subcutaneous filgrastim. I am awaiting Hematology recommendation about further management. I am keeping him on broad-spectrum antibiotics and plan to discharge him on broad- spectrum oral antibiotics until neutrophil count improves. 2. Methicillin-resistant Staphylococcus aureus folliculitis affecting skin of torso. He is on IV vancomycin. 3. Acute sigmoid diverticulitis, now appears to have resolved. He has residual lower abdominal pain, though, he is able to tolerate a diet and has had multiple bowel movements without any blood. He has been complaining of dysphagia to meat pieces for which I have him on a softer diet. He should have outpatient gastrointestinal evaluation. 4. History of uncontrolled diabetes mellitus, insulin-dependent type 2. I will continue him on current dose of glargine and sliding scale insulin. 5. Prior history of alcoholism, which he claims to have quit about 1 and half years ago. 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 Remarkably his anti-CCP was positive and there was a documented history of gout as well. Rheumatology did not have any additional input at the moment. DISPOSITION: I could not reach out to Hematology team today. I am awaiting their recommendation. Based on that, I will plan discharging him in the next 24 to 48 hours if his neutropenia improves. He may need broad-spectrum oral antibiotic at the time of discharge, depending on his blood count. Plan of care discussed with him. His questions have been answered. cc: Pierre Chanel MD
[2019-07-06] MEDS: FLEXERIL PO PRN (23:03)
[2019-07-07] MEDS: VANCOMYCIN 1,400 MG in NS 250 ML IV SCH (04:11)
[2019-07-07] MEDS: MAXIPIME 1 GM in NS 50 ML IV SCH ×2 (04:11→14:38)
[2019-07-07] MEDS: HUMALOG SUBQ SCH ×3 (06:27→17:52)
[2019-07-07 07:58] LABS: AGAP 13; BUN 13 mg/dL (8-22); CALCIUM 8.8 mg/dL (8.8-10.2); CHLORIDE 98 mmol/L (98-107); COSMO 273; CREATININE 0.7 mg/dL (0.7-1.2); ESTIMATED GFR > 60; GLUCOSE 107 mg/dL (70-104); POTASSIUM 4.4 mmol/L (3.5-5.1); SODIUM 136 mmol/L (136-145); TCO2 25 mmol/L (25-35)
[2019-07-07 08:25] LABS: WBC 2.63 X1000 (4.8-10.8)
[2019-07-07 08:26] LABS: BASO# 0.04 X1000 (0.0-0.2); BASO% 1.5 % (0.0-0.8); EOS# 0.01 X1000 (0.0-0.7); EOS% 0.4 % (0.0-10.0); HEMATOCRIT 35.2 % (42.0-52.0); HEMOGLOBIN 11.7 g/dL (14.0-18.0); LYMPH# 1.12 X1000 (1.2-3.4); LYMPH% 42.6 % (20.5-51.1); MCH 26.1 PG (27-31); MCHC 33.2 g/dL (33-37); MCV 78.6 FL (81-99); MONO# 1.21 X1000 (0.11-0.59); MPV 9.1 FL (7.4-10.4); NEUT# 0.25 X1000 (1.4-6.5); NEUT% 9.5 % (42.2-75.2); PLT 80 X1000 (130-400); RBC 4.48 XMIL (4.7-6.1)
[2019-07-07 09:12] LABS: BANDS 8 % (0-1); LYMPHS 50 % (21-51); MONO 28 % (1-9); NRBC 1 % (0-0); SEGS 4 % (42-75)
[2019-07-07 09:18] LABS: HYPOCHROM 1+
[2019-07-07] MEDS: MIRALAX PO SCH (09:18)
[2019-07-07] MEDS: DULCOLAX PR SCH (09:18)
[2019-07-07] MEDS: NEURONTIN PO SCH ×3 (09:19→18:20)
[2019-07-07] MEDS: LACTULOSE PO SCH ×2 (09:19→23:28)
[2019-07-07] MEDS: THERA M PLUS PO SCH (09:19)
[2019-07-07] MEDS: FOLIC ACID PO SCH (09:19)
[2019-07-07] MEDS: LANTUS INSULIN SUBQ SCH (09:21)
[2019-07-07] MEDS: PERCOCET-10 PO PRN ×2 (14:50→23:29)
[2019-07-07] MEDS: BACTROBAN CREAM TOP SCH (18:20)
[2019-07-07] MEDS: DOXYCYCLINE PO SCH (18:20)
[2019-07-07] MEDS: GRANIX SUBQ SCH (18:21)
--- NOTE | 2019-07-07 20:21 | PROGRESS NOTE ---
DATE: 07/07/2019 SUBJECTIVE: The patient is resting comfortably in bed. He states that he is hungry. OBJECTIVE: Vital Signs: Temperature 98 degrees, blood pressure 132/86, heart rate 89, respirations 20, O2 saturation 97% on room air. General: This is a chronically ill-appearing elderly male lying in bed in no acute distress. Heart: S1, S2 normal. Regular rate and rhythm. Lungs: Equal air entry bilaterally. No wheezing, no rales. Abdomen: Positive bowel sounds. Soft, nontender, nondistended. Extremities: No edema, no cyanosis. Neuro: The patient is alert and oriented x3. LABS: White blood cell count 2.6, ANC 250, platelets 80,000. Sodium 136, potassium 4.4, glucose 107, BUN 13, creatinine 0.7. ASSESSMENT AND PLAN: 1. Neutropenia. Slowly improving. The patient is currently on Granix. Will continue to monitor closely. 2. Diverticulitis. Resolved. 3. Diabetes mellitus type 2. Continue on Lantus and sliding scale insulin. 4. Thrombocytopenia. The patient's platelet count is slowly dropping. Will await further recommendations from the cold water machine operator. 5. Neuropathy. Continue on gabapentin. 6. Constipation. Continue with MiraLAX. 7. ETOH abuse. Aware. 8. Disposition. Will plan to discharge the patient once his ANC is within normal limits. cc: Aliyah Ron MD MTDD
--- NOTE | 2019-07-07 21:26 | INFECTIOUS DISEASE CONSULT REP ---
DATE: 07/07/2019 CONCLUSION: The patient has methicillin-resistant Staphylococcus aureus dermatitis involving primarily his chest, abdomen, and groin areas. RECOMMENDATIONS: I have discontinued vancomycin and have put the patient on doxycycline. I have also ordered mupirocin ointment to be put in each nostril, and also I have ordered for Hibiclens to be done with every bath. Specifically, I would suggest the following: Treat with doxycycline 100 mg p.o. daily 100 mg by mouth every 12 hours for 10 more days, apply mupirocin ointment to both nostrils every 12 hours for 5 days, and use Hibiclens for showers daily on a prolonged basis. DISCUSSION: The patient tells me that the patient has had a cutaneous infection. It started in the chest and has gone to the abdomen and groin area. The areas start out being erythematous, and then they become a small ulcer that has drainage coming from it. A culture taken from one of the lesions grew methicillin-resistant Staphylococcus aureus. The patient's laboratories thus far show a CBC with a white count of 2630, but an absolute neutrophil count of only 250, hemoglobin is 11.7, platelet count is 80,000. Creatinine is 0.7 GFR is greater than 60. PAST MEDICAL HISTORY: Medical diseases positive for pancytopenia which could be secondary to alcoholism. The patient also has COPD due to cigarette smoking and diabetes mellitus. INFECTIOUS DISEASE HISTORY: Positive for epiglottitis and pneumonia. SURGICAL HISTORY: The patient has had surgery on his right shoulder. FAMILY HISTORY: Negative for cancer or myocardial infarction. SOCIAL HISTORY: The patient was drinking 1 to 2 beers daily, but he said he quit several months ago. Patient smokes cigarettes about a half to 1 pack daily. He denies using illicit drugs. He lives with his son. FAMILY HISTORY: Negative for cancer, dementia, or myocardial infarction. HOME MEDICATIONS: Folic acid, Neurontin, insulin, and metformin. PHYSICAL EXAMINATION: Vital Signs: Temperature is 98 degrees, pulse 89, respirations 20, blood pressure 132/86. General: This is somewhat ill-appearing middle-aged male. He is in no acute distress. Head, Eyes, Ears, Nose, and Throat: Patient has decreased hearing. He can see near objects. I do not see any white patches on his tongue. The patient talks in a very hoarse voice. Neck: No meningismus. Lungs: Clear to auscultation. Cardiovascular: Heart rate is regular. Abdomen: Soft. It is slightly protuberant. It is not tender. Neurologic: Patient is awake. He can move his extremities. He ambulates without difficulty. There is no tremor. His memory as regarding his medical history was decreased. Integument: The patient has multiple ulcerated areas where he at one time had his methicillin-resistant Staphylococcus aureus infections. He has a brown-copper like color of his skin most all over. patient is alert. He ambulates without difficulty. I am signing off on the patient's case. Thank you for the consult. cc: Sandip Hurtado MD
[2019-07-07] MEDS: FLEXERIL PO PRN (23:29)
[2019-07-08] MEDS: DULCOLAX PR SCH ×2 (00:38→09:44)
[2019-07-08] MEDS: HUMALOG SUBQ SCH ×5 (03:22→22:41)
[2019-07-08] MEDS: MIRALAX PO SCH ×3 (03:22→22:40)
[2019-07-08] MEDS: PERCOCET-10 PO PRN ×2 (06:28→22:37)
[2019-07-08] MEDS: DOXYCYCLINE PO SCH ×2 (06:29→17:28)
[2019-07-08] MEDS: BACTROBAN CREAM TOP SCH ×2 (06:30→17:27)
[2019-07-08] MEDS: HIBICLENS TOP SCH ×2 (09:44→09:45)
[2019-07-08] MEDS: THERA M PLUS PO SCH (09:45)
[2019-07-08] MEDS: LACTULOSE PO SCH ×2 (09:45→22:40)
[2019-07-08] MEDS: FOLIC ACID PO SCH (09:45)
[2019-07-08] MEDS: NEURONTIN PO SCH ×3 (09:45→17:28)
[2019-07-08] MEDS: LANTUS INSULIN SUBQ SCH (09:45)
[2019-07-08 11:47] LABS: BASO# 0.03 X1000 (0.0-0.2); BASO% 0.9 % (0.0-0.8); EOS# 0.01 X1000 (0.0-0.7); EOS% 0.3 % (0.0-10.0); HEMATOCRIT 34.6 % (42.0-52.0); HEMOGLOBIN 11.6 g/dL (14.0-18.0); LYMPH# 1.42 X1000 (1.2-3.4); LYMPH% 44.9 % (20.5-51.1); MCH 26.5 PG (27-31); MCHC 33.5 g/dL (33-37); MCV 79.2 FL (81-99); MONO# 1.38 X1000 (0.11-0.59); MONO% 43.7 % (1.7-9.3); MPV 8.6 FL (7.4-10.4); NEUT% 10.2 % (42.2-75.2); PLT 56 X1000 (130-400); RBC 4.37 XMIL (4.7-6.1); RDW 18.2 % (11.5-14.5); WBC 3.16 X1000 (4.8-10.8)
[2019-07-08 11:57] LABS: AGAP 12; ALBUMIN 3.6 g/dL (3.5-5.0); ALKALINE PHOSPHATASE 92 U/L (32-122); BUN 14 mg/dL (8-22); CALCIUM 9.3 mg/dL (8.8-10.2); CHLORIDE 96 mmol/L (98-107); COSMO 275; ESTIMATED GFR > 60; GLUCOSE 217 mg/dL (70-104); GOT 14 U/L (10-34); GPT 9 U/L (10-44); POTASSIUM 4.3 mmol/L (3.5-5.1); SODIUM 134 mmol/L (136-145); TCO2 26 mmol/L (25-35); TOTAL BILIRUBIN 0.86 mg/dL (0.20-1.00); TOTAL PROTEIN 7.3 g/dL (6.3-8.3)
[2019-07-08 11:58] LABS: BANDS 8 % (0-1); LYMPHS 54 % (21-51); MONO 8 % (1-9); SEGS 26 % (42-75)
[2019-07-08 11:59] LABS: NEUT# 0.32 X1000 (1.4-6.5)
--- NOTE | 2019-07-08 15:13 | PROGRESS NOTE ---
DATE: 07/08/2019 SUBJECTIVE: The patient is resting comfortably. No acute events noted overnight. OBJECTIVE: Vital signs: Temperature 98.3 degrees, blood pressure 107/64, heart rate 82, respirations 18, O2 saturation 98% on room air. General: This is a chronically ill-appearing, elderly male lying in bed in no acute distress. Heart: S1, S2 normal. Regular rate and rhythm. Lungs: Clear to auscultation bilaterally. Abdomen: Positive bowel sounds. Soft, nontender, nondistended. Extremities: No edema, no cyanosis. Neurologic: The patient is alert and oriented x3. LABS: White blood cell count 3.1, hemoglobin 11, hematocrit 34, platelets 56. ANC 320. Sodium 134, BUN 14, creatinine 1, glucose 217. ASSESSMENT AND PLAN: 1. Neutropenia. Slowly improving. Continue on Granix. 2. Diverticulitis. Resolved. 3. Diabetes mellitus type 2. Continue on Lantus and sliding scale insulin. 4. Thrombocytopenia. Worse today. Will await further recommendations from the medical record librarians teacher. 5. Neuropathy. Continue on gabapentin. 6. Constipation. Continue on MiraLAX. 7. ETOH abuse. Aware. 8. Disposition: Will plan to discharge the patient once the ANC is normal. cc: Aliyah Ron MD [facility]
[2019-07-08] MEDS: GRANIX SUBQ SCH (17:27)
[2019-07-09] MEDS: DULCOLAX PR SCH ×3 (00:32→21:03)
[2019-07-09] MEDS: HUMALOG SUBQ SCH ×4 (06:11→21:04)
[2019-07-09 07:37] LABS: BASO# 0.04 X1000 (0.0-0.2); BASO% 1.4 % (0.0-0.8); HEMATOCRIT 34.7 % (42.0-52.0); HEMOGLOBIN 11.6 g/dL (14.0-18.0); LYMPH# 1.16 X1000 (1.2-3.4); LYMPH% 40.8 % (20.5-51.1); MCH 26.4 PG (27-31); MCHC 33.4 g/dL (33-37); MONO# 1.11 X1000 (0.11-0.59); MONO% 39.1 % (1.7-9.3); MPV 9.2 FL (7.4-10.4); NEUT# 0.53 X1000 (1.4-6.5); NEUT% 18.7 % (42.2-75.2); PLT 46 X1000 (130-400); RBC 4.39 XMIL (4.7-6.1); RDW 18.4 % (11.5-14.5); WBC 2.84 X1000 (4.8-10.8)
[2019-07-09 07:46] LABS: AGAP 11; BUN 13 mg/dL (8-22); CALCIUM 9.3 mg/dL (8.8-10.2); CHLORIDE 96 mmol/L (98-107); COSMO 265; CREATININE 0.9 mg/dL (0.7-1.2); ESTIMATED GFR > 60; GLUCOSE 107 mg/dL (70-104); POTASSIUM 4.2 mmol/L (3.5-5.1); SODIUM 132 mmol/L (136-145); TCO2 25 mmol/L (25-35)
[2019-07-09 08:09] LABS: BANDS 4 % (0-1); LYMPHS 40 % (21-51); MONO 18 % (1-9); NRBC 2 % (0-0); SEGS 38 % (42-75)
[2019-07-09] MEDS ORDERED: MARCAINE 0.5% PF ONE (08:35)
[2019-07-09] MEDS ORDERED: DIPRIVAN 1% ONE (09:11)
[2019-07-09] MEDS ORDERED: XYLOCAINE-MPF 2% ONE (09:31)
[2019-07-09 10:00] LABS: FLOW CYTOMETERY SOURCE BONE MARROW; LEUKEMIA LYMPHOMA BY FLOW REFERRED FOR TESTING
[2019-07-09] MEDS: MIRALAX PO SCH ×2 (10:39→21:04)
[2019-07-09] MEDS: BACTROBAN CREAM TOP SCH ×2 (10:39→21:05)
[2019-07-09] MEDS: DOXYCYCLINE PO SCH ×2 (10:39→21:04)
[2019-07-09] MEDS: THERA M PLUS PO SCH (10:39)
[2019-07-09] MEDS: NEURONTIN PO SCH ×3 (10:39→17:51)
[2019-07-09] MEDS: LACTULOSE PO SCH ×2 (10:40→21:05)
[2019-07-09] MEDS: FOLIC ACID PO SCH (10:41)
[2019-07-09] MEDS: PERCOCET-10 PO PRN ×2 (10:48→17:50)
--- NOTE | 2019-07-09 10:52 | PROGRESS NOTE ---
DATE: 07/09/2019 SUBJECTIVE: No acute events noted overnight. The patient is scheduled for a bone marrow biopsy today. OBJECTIVE: Vital Signs: Temperature 98.4 degrees, blood pressure 93/60, heart rate 85, respirations 18, O2 saturation is 94% on room air. General: This is an elderly male, lying in bed in no acute distress. Heart: S1, S2 normal. Regular rate and rhythm. Lungs: Equal air entry bilaterally. No wheezing. No rales. No rhonchi. Abdomen: Positive bowel sounds. Soft, nontender, nondistended. Extremities: No edema, no cyanosis. Neurologic: The patient is alert and oriented x3. Labs: White blood cell count 2.8, hemoglobin 11, hematocrit 34, platelets 46,000. Sodium 132, potassium 4.2, chloride 96, CO2 of 25, BUN 13, creatinine 0.9, glucose 107. ASSESSMENT AND PLAN: 1. Neutropenia. Continue on Granix. The patient is scheduled for a bone marrow biopsy today. Further management as per the hand filer balance wheel. 2. Methicillin-resistant Staphylococcus aureus dermatitis involving the chest, abdomen, and groin. The patient is on doxycycline and mupirocin ointment. 3. Thrombocytopenia. This continues to worsen. We will await further recommendations from the hand filer balance wheel. 4. Diabetes mellitus type 2. Continue on Lantus and sliding scale insulin. 5. Diverticulitis. Resolved. 6. Alcohol abuse. Aware. 7. Continue with physical therapy. cc: Aliyah Ron MD
[2019-07-09] MEDS: LANTUS INSULIN SUBQ SCH (11:38)
[2019-07-09] MEDS: HIBICLENS TOP SCH (11:39)
[2019-07-09] MEDS: GRANIX SUBQ SCH (17:52)
[2019-07-10] MEDS: PERCOCET-10 PO PRN ×4 (03:42→21:46)
[2019-07-10] MEDS: HUMALOG SUBQ SCH ×4 (06:10→21:46)
[2019-07-10 07:31] LABS: BASO# 0.04 X1000 (0.0-0.2); EOS# 0.01 X1000 (0.0-0.7); EOS% 0.2 % (0.0-10.0); LYMPH# 1.35 X1000 (1.2-3.4); LYMPH% 32.8 % (20.5-51.1); MCH 26.4 PG (27-31); MCHC 33.3 g/dL (33-37); MCV 79.1 FL (81-99); MONO# 1.23 X1000 (0.11-0.59); MONO% 29.9 % (1.7-9.3); MPV 9.6 FL (7.4-10.4); NEUT# 1.48 X1000 (1.4-6.5); NEUT% 36.1 % (42.2-75.2); PLT 43 X1000 (130-400); RBC 4.17 XMIL (4.7-6.1); RDW 18.2 % (11.5-14.5); WBC 4.11 X1000 (4.8-10.8)
[2019-07-10 07:41] LABS: AGAP 13; BUN 11 mg/dL (8-22); CALCIUM 9.6 mg/dL (8.8-10.2); CHLORIDE 94 mmol/L (98-107); COSMO 266; CREATININE 0.8 mg/dL (0.7-1.2); ESTIMATED GFR > 60; GLUCOSE 137 mg/dL (70-104); POTASSIUM 4.1 mmol/L (3.5-5.1); SODIUM 132 mmol/L (136-145); TCO2 25 mmol/L (25-35)
[2019-07-10 08:20] LABS: BANDS 6 % (0-1); LARGE PLATELETS 1+; LYMPHS 42 % (21-51); MONO 6 % (1-9); NRBC 1 % (0-0); SEGS 40 % (42-75)
[2019-07-10 08:21] LABS: MICROCYTOSIS 2+
[2019-07-10 08:22] LABS: HYPOCHROM 2+
[2019-07-10] MEDS: MIRALAX PO SCH ×2 (09:09→21:46)
[2019-07-10] MEDS: THERA M PLUS PO SCH (09:10)
[2019-07-10] MEDS: FOLIC ACID PO SCH (09:10)
[2019-07-10] MEDS: LACTULOSE PO SCH ×2 (09:10→21:46)
[2019-07-10] MEDS: DULCOLAX PR SCH ×2 (09:10→21:46)
[2019-07-10] MEDS: DOXYCYCLINE PO SCH ×2 (09:10→21:46)
[2019-07-10] MEDS: NEURONTIN PO SCH ×3 (09:11→18:01)
[2019-07-10] MEDS: BACTROBAN CREAM TOP SCH ×2 (09:13→21:46)
[2019-07-10] MEDS: HIBICLENS TOP SCH (09:17)
[2019-07-10] MEDS: LANTUS INSULIN SUBQ SCH (09:17)
--- NOTE | 2019-07-10 15:09 | PROGRESS NOTE ---
DATE: 07/10/2019 SUBJECTIVE: The patient is resting comfortably. He complains of lower abdominal pain and pain where he had his bone marrow biopsy done yesterday. OBJECTIVE: Vital Signs: Temperature 97.6 degrees, blood pressure 110/76, heart rate 95, respirations 17, O2 saturation 100% on room air. General: This is a chronically ill-appearing elderly male lying in bed in no acute distress. Heart: S1, S2 normal. Regular rate and rhythm. Lungs: Clear to auscultation bilaterally. Abdomen: Positive bowel sounds. Soft, nontender, nondistended. Extremities: No edema, no cyanosis. Neurologic: The patient is alert and oriented x3. LABS: White blood cell count 4, hemoglobin 11, hematocrit 33, platelets 443,000. Sodium 132, potassium 4.1, chloride 94, CO2 25, BUN 11, creatinine 0.8, glucose 137. ASSESSMENT AND PLAN: 1. Neutropenia. Resolved. We will await the results of the bone marrow biopsy. 2. Pancytopenia. Oncology is following. The bone marrow biopsy results are pending. 3. Chronic constipation. Continue with scheduled laxative therapy. 4. Diabetes mellitus type 2. Continue on Lantus and sliding scale insulin. 5. History of alcohol abuse. Aware. 6. MRSA dermatitis involving the chest, abdomen, and groin. Continue on doxycycline. 7. Continue with physical therapy. cc: Aliyah Ron MD
[2019-07-10] MEDS: GRANIX SUBQ SCH (18:01)
[2019-07-11] MEDS: FLEXERIL PO PRN ×2 (02:23→22:07)
[2019-07-11] MEDS: TYLENOL PO PRN (02:23)
[2019-07-11] MEDS: PERCOCET-10 PO PRN ×4 (03:59→21:55)
[2019-07-11] MEDS: HUMALOG SUBQ SCH ×4 (06:06→21:56)
[2019-07-11 08:44] LABS: AGAP 12; BUN 14 mg/dL (8-22); CALCIUM 9.4 mg/dL (8.8-10.2); CHLORIDE 92 mmol/L (98-107); COSMO 260; CREATININE 0.9 mg/dL (0.7-1.2); ESTIMATED GFR > 60; GLUCOSE 103 mg/dL (70-104); POTASSIUM 3.9 mmol/L (3.5-5.1); SODIUM 129 mmol/L (136-145); TCO2 25 mmol/L (25-35)
[2019-07-11 08:47] LABS: HEMATOCRIT 34.6 % (42.0-52.0); HEMOGLOBIN 11.4 g/dL (14.0-18.0); RBC 4.36 XMIL (4.7-6.1); WBC 3.95 X1000 (4.8-10.8)
[2019-07-11 08:48] LABS: BASO# 0.04 X1000 (0.0-0.2); LYMPH# 1.25 X1000 (1.2-3.4); LYMPH% 31.6 % (20.5-51.1); MCH 26.1 PG (27-31); MCHC 32.9 g/dL (33-37); MCV 79.4 FL (81-99); MONO% 20.3 % (1.7-9.3); MPV 9.4 FL (7.4-10.4); NEUT# 1.86 X1000 (1.4-6.5); NEUT% 47.1 % (42.2-75.2); PLT 36 X1000 (130-400)
[2019-07-11] MEDS: FOLIC ACID PO SCH (09:51)
[2019-07-11] MEDS: LACTULOSE PO SCH ×2 (09:51→21:56)
[2019-07-11] MEDS: MIRALAX PO SCH ×2 (09:51→21:55)
[2019-07-11] MEDS: LANTUS INSULIN SUBQ SCH (09:51)
[2019-07-11] MEDS: DULCOLAX PR SCH (09:51)
[2019-07-11] MEDS: THERA M PLUS PO SCH (09:51)
[2019-07-11] MEDS: DOXYCYCLINE PO SCH ×2 (09:51→21:56)
[2019-07-11] MEDS: NEURONTIN PO SCH ×3 (09:51→17:42)
[2019-07-11] MEDS: HIBICLENS TOP SCH (09:52)
[2019-07-11] MEDS: BACTROBAN CREAM TOP SCH ×2 (09:52→21:58)
[2019-07-11 10:32] LABS: BASO 1 % (0-1); LYMPHS 33 % (21-51); MONO 17 % (1-9); SEGS 49 % (42-75)
[2019-07-11 10:33] LABS: ANISOCYTOSIS 2+; MICROCYTOSIS 2+; POIKILOCYTOSIS 1+; POLYCHROM 1+; TARGET CELLS 1+
[2019-07-11] MEDS: NS 1,000 ML IV SCH ×2 (12:39→22:07)
--- NOTE | 2019-07-11 17:14 | PROGRESS NOTE ---
DATE: 07/11/2019 SUBJECTIVE: The patient is resting comfortably in bed. He complains of generalized pain to the joints. OBJECTIVE: Vital Signs: Temperature 98.5 degrees, blood pressure 112/66, heart rate 97, respirations 16, O2 saturation 96% on room air. General: This is a chronically ill-appearing elderly male lying in bed in no acute distress. Heart: S1, S2 normal. Regular rate and rhythm. Lungs: Clear to auscultation bilaterally. Abdomen: Positive bowel sounds. Soft, nontender, nondistended. Extremities: No edema, no cyanosis. Neurologic: The patient is alert and oriented x4. LABS: White blood cell count 3.9, hemoglobin 11, hematocrit 34, platelets 36. Sodium 129, potassium 3.9, chloride 92, CO2 25, BUN 14, creatinine 0.9, glucose 103. ASSESSMENT AND PLAN: 1. Neutropenia. Improved. The patient is currently on Granix. 2. Pancytopenia. The bone marrow biopsy results are currently pending. Further management as per the oncologist. 3. History of alcohol abuse. Aware. 4. Diverticulitis. Resolved. 5. Diabetes mellitus type 2. Continue on sliding scale insulin. 6. Methicillin-resistant Staphylococcus aureus dermatitis involving the chest, abdomen, and groin. Slowly improving. Continue on doxycycline. 7. Continue with physical therapy. cc: Aliyah Ron MD
[2019-07-11] MEDS: GRANIX SUBQ SCH (17:43)
[2019-07-12] MEDS ORDERED: NICODERM PATCH TD PRN (00:02)
[2019-07-12] MEDS: DULCOLAX PR SCH ×3 (03:10→20:51)
[2019-07-12] MEDS: PERCOCET-10 PO PRN ×2 (05:50→13:46)
[2019-07-12] MEDS: HUMALOG SUBQ SCH ×4 (06:38→22:01)
[2019-07-12 07:47] LABS: BASO# 0.03 X1000 (0.0-0.2); BASO% 0.6 % (0.0-0.8); EOS# 0.01 X1000 (0.0-0.7); EOS% 0.2 % (0.0-10.0); HEMATOCRIT 34.4 % (42.0-52.0); HEMOGLOBIN 11.2 g/dL (14.0-18.0); LYMPH# 1.37 X1000 (1.2-3.4); LYMPH% 28.5 % (20.5-51.1); MCH 25.9 PG (27-31); MCHC 32.6 g/dL (33-37); MCV 79.6 FL (81-99); MONO# 0.98 X1000 (0.11-0.59); MONO% 20.4 % (1.7-9.3); MPV 9.4 FL (7.4-10.4); NEUT# 2.42 X1000 (1.4-6.5); NEUT% 50.3 % (42.2-75.2); PLT 44 X1000 (130-400); RBC 4.32 XMIL (4.7-6.1); RDW 18.5 % (11.5-14.5); WBC 4.81 X1000 (4.8-10.8)
[2019-07-12 07:50] LABS: AGAP 14; BUN 12 mg/dL (8-22); CALCIUM 10.1 mg/dL (8.8-10.2); CHLORIDE 97 mmol/L (98-107); COSMO 269; CREATININE 0.9 mg/dL (0.7-1.2); ESTIMATED GFR > 60; GLUCOSE 123 mg/dL (70-104); POTASSIUM 4.3 mmol/L (3.5-5.1); SODIUM 134 mmol/L (136-145); TCO2 23 mmol/L (25-35)
[2019-07-12] MEDS: DOXYCYCLINE PO SCH ×2 (08:55→20:50)
[2019-07-12] MEDS: BACTROBAN CREAM TOP SCH (08:55)
[2019-07-12] MEDS: FOLIC ACID PO SCH (08:55)
[2019-07-12] MEDS: THERA M PLUS PO SCH (08:55)
[2019-07-12] MEDS: NEURONTIN PO SCH ×3 (08:55→17:26)
[2019-07-12] MEDS: LACTULOSE PO SCH ×2 (08:55→20:50)
[2019-07-12] MEDS: LANTUS INSULIN SUBQ SCH (08:56)
[2019-07-12] MEDS: MIRALAX PO SCH ×2 (08:56→20:50)
[2019-07-12] MEDS: HIBICLENS TOP SCH (08:56)
[2019-07-12 09:00] LABS: ANISOCYTOSIS 1+; LYMPHS 24 % (21-51); MICROCYTOSIS 1+; MONO 16 % (1-9); POLYCHROM 1+; SEGS 58 % (42-75)
[2019-07-12 09:01] LABS: LARGE PLATELETS OCCASIONAL; POIKILOCYTOSIS 1+; TARGET CELLS 1+
--- NOTE | 2019-07-12 11:09 | PROGRESS NOTE ---
DATE: 07/12/2019 SUBJECTIVE: The patient is resting comfortably in bed. No acute events noted overnight. OBJECTIVE: Vital Signs: Temperature 97.8 degrees, blood pressure 106/70, heart rate 82, respirations 20, O2 saturation 97% on room air. General: This is a chronically ill-appearing, elderly male, sitting up in bed in no acute distress. Heart: S1, S2 normal. Regular rate and rhythm. Lungs: Equal air entry bilaterally. No crackles. No rales. Abdomen: Positive bowel sounds. Soft, nontender, nondistended. Extremities: No edema, no cyanosis. Neurologic: The patient is alert and oriented x4. LABORATORY DATA: White blood cell count 4.8, hemoglobin 11, hematocrit 34, platelets 44,000. Sodium 134, potassium 4.3, chloride 97, CO2 of 23, BUN 12, creatinine 0.9, glucose 123. ASSESSMENT AND PLAN: 1. Pancytopenia. Slightly improved today. The bone marrow biopsy results are currently pending. Further management as per on Oncology. 2. History of alcohol abuse. Aware. 3. Diabetes mellitus type 2. Continue on sliding scale insulin. 4. Methicillin-resistant staphylococcus aureus dermatitis involving the chest, abdomen, and groin. Continue on doxycycline. 5. Continue with physical therapy. cc: Aliyah Ron MD [facility]
[2019-07-12] MEDS: NS 1,000 ML IV SCH (13:46)
[2019-07-12] MEDS: GRANIX SUBQ SCH (17:26)
[2019-07-12] MEDS: FLEXERIL PO PRN (19:56)
[2019-07-13] MEDS: PERCOCET-10 PO PRN ×4 (01:33→21:49)
[2019-07-13] MEDS: NS 1,000 ML IV SCH (01:34)
[2019-07-13] MEDS: HUMALOG SUBQ SCH ×4 (06:15→22:33)
[2019-07-13 07:39] LABS: AGAP 10; CHLORIDE 99 mmol/L (98-107); GLUCOSE 122 mg/dL (70-104); POTASSIUM 4.2 mmol/L (3.5-5.1); SODIUM 133 mmol/L (136-145); TCO2 24 mmol/L (25-35)
[2019-07-13 07:40] LABS: BUN 15 mg/dL (8-22); CALCIUM 9.6 mg/dL (8.8-10.2); COSMO 269; ESTIMATED GFR > 60
[2019-07-13 07:48] LABS: HEMATOCRIT 33.6 % (42.0-52.0); HEMOGLOBIN 10.9 g/dL (14.0-18.0); RBC 4.15 XMIL (4.7-6.1); WBC 3.38 X1000 (4.8-10.8)
[2019-07-13 07:49] LABS: BASO# 0.03 X1000 (0.0-0.2); BASO% 0.9 % (0.0-0.8); EOS# 0.01 X1000 (0.0-0.7); EOS% 0.3 % (0.0-10.0); LYMPH# 0.94 X1000 (1.2-3.4); LYMPH% 27.8 % (20.5-51.1); MCH 26.3 PG (27-31); MCHC 32.4 g/dL (33-37); MONO# 0.63 X1000 (0.11-0.59); MONO% 18.6 % (1.7-9.3); MPV 9.4 FL (7.4-10.4); NEUT# 1.77 X1000 (1.4-6.5); NEUT% 52.4 % (42.2-75.2); PLT 38 X1000 (130-400); RDW 18.7 % (11.5-14.5)
[2019-07-13] MEDS: DOXYCYCLINE PO SCH ×2 (08:36→22:32)
[2019-07-13] MEDS: THERA M PLUS PO SCH (08:36)
[2019-07-13] MEDS: NEURONTIN PO SCH ×3 (08:36→18:00)
[2019-07-13] MEDS: FOLIC ACID PO SCH (08:36)
[2019-07-13] MEDS: HIBICLENS TOP SCH (08:37)
[2019-07-13] MEDS: DULCOLAX PR SCH ×2 (08:37→22:32)
[2019-07-13] MEDS: LANTUS INSULIN SUBQ SCH (08:38)
[2019-07-13] MEDS: LACTULOSE PO SCH ×2 (08:38→22:32)
[2019-07-13] MEDS: MIRALAX PO SCH ×2 (08:38→22:32)
[2019-07-13] MEDS: FLEXERIL PO PRN (14:24)
--- NOTE | 2019-07-13 15:47 | PROGRESS NOTE ---
DATE: 07/13/2019 SUBJECTIVE: The patient is resting comfortably in bed. He complains of pain in his hands and the lower abdomen. OBJECTIVE: Vital Signs: Temperature 97.6 degrees, blood pressure 110/79, heart rate 91, respirations 18, O2 saturation 95% on room air. General: This is a chronically ill-appearing elderly male lying in bed in no acute distress. Heart: S1, S2 normal. Regular rate and rhythm. Lungs: Equal air entry bilaterally. No wheezing. No rales. No rhonchi. Abdomen: Positive bowel sounds. Soft, nontender, nondistended. Extremities: No edema. No cyanosis. No calf tenderness. Neurologic: The patient is alert and oriented x4. LABORATORY DATA: White blood cell count 3.3, hemoglobin 10, hematocrit 33, platelets 38,000. Sodium 133, potassium 4.2, chloride 99, CO2 24, BUN 15, creatinine 1, glucose 122. ASSESSMENT AND PLAN: 1. Pancytopenia. The results of the bone marrow biopsy are currently pending. Further management as per Dr. Cintron. 2. Methicillin resistant Staphylococcus aureus dermatitis involving the chest, abdomen, and groin. Improved. Continue on doxycycline. 3. Diabetes mellitus type 2. Continue on Lantus and sliding scale insulin. 4. History of alcohol abuse. Aware. 5. Diverticulitis. Resolved. 6. Continue with physical therapy. cc: Aliyah Ron MD [facility]
[2019-07-13] MEDS: GRANIX SUBQ SCH (18:00)
[2019-07-14] MEDS: HUMALOG SUBQ SCH ×4 (06:41→21:16)
[2019-07-14 06:50] LABS: BASO# 0.03 X1000 (0.0-0.2); BASO% 0.6 % (0.0-0.8); HEMOGLOBIN 10.7 g/dL (14.0-18.0); IMM GRAN# 0.02 X1000 (0.0-0.04); IMM GRAN% 0.4 % (0.0-0.5); LYMPH# 1.32 X1000 (1.2-3.4); LYMPH% 27.7 % (20.5-51.1); MCH 26.2 PG (27-31); MCHC 32.4 g/dL (33-37); MCV 80.9 FL (81-99); MONO# 0.97 X1000 (0.11-0.59); MONO% 20.3 % (1.7-9.3); MPV 9.7 FL (7.4-10.4); NEUT# 2.43 X1000 (1.4-6.5); PLT 42 X1000 (130-400); RBC 4.08 XMIL (4.7-6.1); RDW 18.9 % (11.5-14.5); WBC 4.77 X1000 (4.8-10.8)
[2019-07-14 07:27] LABS: AGAP 11; BUN 14 mg/dL (8-22); CHLORIDE 92 mmol/L (98-107); COSMO 260; ESTIMATED GFR > 60; GLUCOSE 181 mg/dL (70-104); POTASSIUM 4.4 mmol/L (3.5-5.1); SODIUM 127 mmol/L (136-145); TCO2 24 mmol/L (25-35)
[2019-07-14 07:40] LABS: BANDS 10 % (0-1); LYMPHS 24 % (21-51); MONO 10 % (1-9); SEGS 56 % (42-75)
[2019-07-14] MEDS: FOLIC ACID PO SCH (10:38)
[2019-07-14] MEDS: THERA M PLUS PO SCH (10:38)
[2019-07-14] MEDS: NEURONTIN PO SCH ×3 (10:38→21:15)
[2019-07-14] MEDS: DOXYCYCLINE PO SCH ×2 (10:38→21:15)
[2019-07-14] MEDS: DULCOLAX PR SCH (10:39)
[2019-07-14] MEDS: MIRALAX PO SCH ×2 (10:39→21:15)
[2019-07-14] MEDS: LACTULOSE PO SCH ×2 (10:39→21:15)
[2019-07-14] MEDS: LANTUS INSULIN SUBQ SCH (10:41)
[2019-07-14] MEDS: PERCOCET-10 PO PRN ×2 (11:55→18:44)
[2019-07-14] MEDS: FLEXERIL PO PRN (11:55)
[2019-07-14] MEDS: HIBICLENS TOP SCH (15:18)
--- NOTE | 2019-07-14 17:39 | PROGRESS NOTE ---
DATE: 07/14/2019 SUBJECTIVE: Mr. Salcido came in on 06/30/2019. This is a 59-year-old with longstanding history of alcoholism, COPD, diabetes mellitus type 2. He was admitted to our facility in January and February for pancytopenia and sublaryngeal epiglottitis. Extensive workup done to evaluate source and cause of the patient's pancytopenia. He was treated. It was noted that his RICHARD was initially elevated, but subsequent workup could not find any overt cause of this. Also had a flow cytometry done, according to the patient. Workup was done. Essentially negative from that standpoint. CEA was done, and this was negative. Anemia workup uneventful, did not show any overt etiology. Hemoglobin A1c was 10.8. Bone marrow biopsy according to the patient was negative. We looked at bone marrow report and did show some hypercellular cells, decreased iron storage, a little bit odd in light of the fact that the patient has pancytopenia. The patient came in with a rash in his chest and groin area, pruritic, painful. He has tried topical [id number] antibiotics, did not help. Had not seen any bugs or known of any insect bites. Admits to a 6-month history of night sweats, 3 months' history of low-grade fevers, about a year history of joint stiffness in his hands. Last time he engaged in sexual activity was 2-1/2 years ago. Denies any IV drug use. No GI or complaints. ADMISSION DIAGNOSIS: Neutropenia. He states he is feeling better today and the blisters are healing, although he has a couple new blisters in his sacral area. The other blisters seem to be healing up. OBJECTIVE: Temperature 98.5 degrees, pulse 84, respirations 20, blood pressure 108/67. Pupils are equal and round. Lungs are clear in all lung wick.Cardiovascular: Regular rhythm and rate without murmur or S3. Urine output was 1500 mL. ASSESSMENT AND PLAN: 1. Methicillin-resistant Staphylococcus aureus dermatitis involving primarily his chest, abdomen, and groin areas. Has discontinued vancomycin and patient on doxycycline and ordered mupirocin ointment to be put on each nostril. Also Dr. Hurtado has ordered Hibiclens done with every bath, so treat doxycycline 100 mg p.o. daily every 12 hours for more than 10 days and apply the mupirocin ointment to both nostrils every 12 hours for 5 days and Hibiclens showers on a prolonged basis. He seems to be improving. 2. 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 He quit about 1-1/2 years ago, so continuing filgrastim subcutaneously. Most of his workup has been unremarkable. He did have parvovirus, B19, IgG, and so continue his subcutaneous filgrastim. 3. Methicillin-resistant Staphylococcus aureus folliculitis of skin of torso. Continue IV vancomycin, topical antibiotic. 4. Acute sigmoid diverticulitis, which appears to have resolved. Residual left lower abdominal pain which is improving. 5. He complained of some dysphagia to meat pieces so he is on a soft diet. 6. Uncontrolled diabetes mellitus, type 2. Continue his patterned sugars and sliding scale. 7. History of alcoholism, which he claims he quit about a year and half ago. Does have alcohol- related peripheral neuropathy and osteoarthritis, bilateral hands and feet. 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 REVIEW OF HIS LAB: Hematocrit stable at 33, hemoglobin 10. Electrolytes unremarkable, except for mild hyponatremia with sodium 127. cc: Roberto Herrera MD
[2019-07-14] MEDS: GRANIX SUBQ SCH (18:52)
[2019-07-15] MEDS: DULCOLAX PR SCH ×3 (02:33→22:43)
[2019-07-15] MEDS: FLEXERIL PO PRN ×2 (05:54→22:52)
[2019-07-15] MEDS: HUMALOG SUBQ SCH ×4 (06:02→22:43)
[2019-07-15 07:51] LABS: AGAP 15; BUN 12 mg/dL (8-22); CALCIUM 9.6 mg/dL (8.8-10.2); CHLORIDE 96 mmol/L (98-107); COSMO 269; CREATININE 0.8 mg/dL (0.7-1.2); ESTIMATED GFR > 60; GLUCOSE 147 mg/dL (70-104); POTASSIUM 4.3 mmol/L (3.5-5.1); SODIUM 133 mmol/L (136-145); TCO2 22 mmol/L (25-35)
[2019-07-15] MEDS: LANTUS INSULIN SUBQ SCH (08:02)
[2019-07-15] MEDS: LACTULOSE PO SCH ×2 (08:02→22:42)
[2019-07-15] MEDS: THERA M PLUS PO SCH (08:03)
[2019-07-15] MEDS: NEURONTIN PO SCH ×3 (08:03→22:43)
[2019-07-15] MEDS: MIRALAX PO SCH ×2 (08:03→22:41)
[2019-07-15] MEDS: DOXYCYCLINE PO SCH ×2 (08:04→22:43)
--- NOTE | 2019-07-15 09:10 | PROGRESS NOTE ---
DATE: 07/15/2019 SUBJECTIVE: He reports he is feeling better. Ate all of his breakfast. Had a good night's sleep. OBJECTIVE: Remains afebrile. Temperature 98.2 degrees, pulse 90, respirations 18, blood pressure 122/79. Pupils are equal and round. Lungs are clear in all lung wick. Cardiovascular Examination: Regular rhythm and rate without murmur or S3. Abdomen is soft. Skin is warm and dry. ASSESSMENT AND PLAN: 1. Methicillin-resistant Staphylococcus aureus dermatitis involving mainly his chest, abdomen, groin, and also his sacrum. The patient is on doxycycline and has mupirocin topical ointment they put in his nostril every day, doxycycline 100 mg by mouth twice a day for another 9 days, I believe. 2. Neutropenia, leukopenia related to chronic alcohol use. He drank a pint a day for 20 or 30 years. He quit 1-1/2 years ago by his report. Continue his filgrastim subcutaneously. His workup for neutropenia has been pretty unremarkable. 3. Methicillin-resistant Staphylococcus aureus folliculitis of the skin and torso. 4. Sigmoid diverticulitis, which has resolved. 5. He complains of some dysphagia, but that has improved and he is tolerating his diet without any issues. 6. Uncontrolled diabetes mellitus type 2. He is on pattern of sugars. Sugars appear well- controlled. 7. History of alcoholism. Aware. 8. Continue physical therapy. The question is, what are the plans? I guess he would like to go home. cc: Roberto Herrera MD
[2019-07-15] MEDS: HIBICLENS TOP SCH (10:45)
[2019-07-15] MEDS: FOLIC ACID PO SCH (10:47)
[2019-07-15] MEDS: PERCOCET-10 PO PRN ×2 (10:54→17:37)
[2019-07-15] MEDS: GRANIX SUBQ SCH (17:31)
[2019-07-16] MEDS: HUMALOG SUBQ SCH ×4 (06:27→22:03)
[2019-07-16] MEDS: DOXYCYCLINE PO SCH ×2 (10:17→22:02)
[2019-07-16] MEDS: PERCOCET-10 PO PRN ×2 (10:17→15:59)
[2019-07-16] MEDS: NEURONTIN PO SCH ×3 (10:17→16:00)
[2019-07-16] MEDS: FOLIC ACID PO SCH (10:18)
[2019-07-16] MEDS: THERA M PLUS PO SCH (10:18)
[2019-07-16] MEDS: LANTUS INSULIN SUBQ SCH (10:19)
[2019-07-16] MEDS: LACTULOSE PO SCH ×2 (10:22→22:01)
[2019-07-16] MEDS: DULCOLAX PR SCH ×2 (10:22→22:02)
[2019-07-16] MEDS: MIRALAX PO SCH ×2 (10:22→22:01)
[2019-07-16] MEDS: HIBICLENS TOP SCH (15:59)
--- NOTE | 2019-07-16 17:24 | PROGRESS NOTE ---
DATE: 07/16/2019 SUBJECTIVE: Mr. Salcido is feeling better. He states his rash has resolved. He has a couple of new vesicles, I think, on his sacrum, but otherwise, the skin rash is clearing. OBJECTIVE: Temperature 97.6 degrees, pulse 86, respirations 18, blood pressure 104/70. Pupils are equal and round. Lungs are clear in all lung wick. Cardiovascular: Regular rhythm and rate without murmur or S3. Abdomen: Soft Skin: Warm and dry. ASSESSMENT AND PLAN: 1. Pancytopenia. Bone marrow biopsy on 07/09/2019, results as noted. T-cell, I guess we are waiting on those results, but no need to continue hospital stay from oncology or from hematology standpoint. They are waiting on the karyotype and molecular analysis. Preliminary results reviewed already. He seems to be clinically getting better. 2. Neutropenia, leukopenia. Improving. Continue to give him filgrastim. 3. Methicillin-resistant Staphylococcus aureus folliculitis, which is improving. 4. Sigmoid diverticulitis, which is resolved. 5. Possibility of going home tomorrow. Will discuss with Dr. Hurtado. His blood counts today, white count 4770, his hematocrit is 33, hemoglobin 10, platelet count is 42,000, so that is coming up as well. cc: Roberto Herrera MD
[2019-07-16] MEDS: GRANIX SUBQ SCH (19:09)
[2019-07-16] MEDS: FLEXERIL PO PRN (22:01)
[2019-07-17] MEDS: HUMALOG SUBQ SCH (06:29)
[2019-07-17] MEDS: NEURONTIN PO SCH (08:28)
[2019-07-17] MEDS: THERA M PLUS PO SCH (08:28)
[2019-07-17] MEDS: PERCOCET-10 PO PRN (08:28)
[2019-07-17] MEDS: DOXYCYCLINE PO SCH (08:28)
[2019-07-17] MEDS: MIRALAX PO SCH (08:28)
[2019-07-17] MEDS: DULCOLAX PR SCH (08:28)
[2019-07-17] MEDS: FOLIC ACID PO SCH (08:29)
[2019-07-17] MEDS: LACTULOSE PO SCH (08:29)
[2019-07-17] MEDS: LANTUS INSULIN SUBQ SCH (08:31)
--- NOTE | 2019-07-17 10:00 | DISCHARGE SUMMARY ---
ADMISSION DATE: 06/30/2019 DISCHARGE DATE: 07/17/2019 HOSPITAL COURSE: This is a 59-year-old male with longstanding history of alcoholism, COPD, type 2 diabetes, last admitted to our facility in January or February for pancytopenia, some laryngeal epiglottitis. Extensive workup was done to evaluate source of neutropenia. Pancytopenia was noted and his RICHARD was initially elevated and subsequent workup did not find any overt cause for this. Also had a flow cytometry done, essentially negative. CA was done, was negative. Anemia workup uneventful. A1c was 10.8. Bone marrow biopsy, according to the patient, was negative. So admitted with admission diagnosis 1. Neutropenia, etiology undetermined. 2. Diabetes mellitus type 2, poorly controlled. 3. Alcoholism, a host of toxic. It could predispose him to post toxic immune problems. The patient has some nutritional deficiencies 4. COPD. The patient had a chest CT on 07/01/2019, no evidence of significant adenopathy or pulmonary parenchymal disease but did have COPD. Hematology/Oncology asked to see. Pancytopenia with previous extensive workup being negative. The patient had an echocardiogram done on 07/02/2019, technically difficult study. Very mild tricuspid regurgitation, mild concentric left ventricular hypertrophy with estimated left ventricular ejection fraction approximately 60%, and lipomatosis interatrial septum. Infectious disease consultation on 07/07/2019, appears to have folliculitis and it was methicillin-resistant Staph folliculitis and was put on antibiotics and topical care and showed steady improvement. Pancytopenia improved. Folliculitis improved. Walker he could go home. Blood sugars appeared well-controlled. Platelet count came up to 42,000. White count 4770 and hematocrit 33, hemoglobin 10. So we will try and get him home. He wants to go home. I think he stays with his sister. Will have Dulcolax suppository 10 mg per rectum b.i.d. He will use Hibiclens liquid topically every day for washing, bathing, Flexeril 5 mg p.o. q.8 hours p.r.n., doxycycline 100 mg p.o. b.i.d., folic acid 0.4 mg daily, Neurontin 100 mg t.i.d., Lantus insulin 15 units daily, I think he takes that at night, lactulose 30 mL b.i.d., Thera-M Plus multivitamin 1 a day, NicoDerm patch 14 mg daily as needed, MiraLAX 17 g b.i.d., and we will stop his Granix. He is to follow up with his primary care. cc: Roberto Herrera MD
[2019-07-17 11:33] LABS: TEST NAME CHROM ANALY
[2019-07-17 11:34] LABS: COMMENTS BONE MARROW
[2019-07-17 12:09] VITALS: BP 129/84
== END 2019-07-17 16:00 | disposition home or self-care (01) | DRG 809 ==
LOC: ED 17:13 → 3N 23:05 → SUATTDRO 23:05 → 3N 07-01 11:08
PROVIDERS: ATTEND Emergency Medicine

== ENCOUNTER 2019-11-17 15:24 | Inpatient (IN) ==
[2019-11-17 16:42] LABS: BASO# 0.08 X1000 (0.0-0.2); BASO% 5.4 % (0.0-0.8); HEMATOCRIT 39.2 % (42.0-52.0); HEMOGLOBIN 13.1 g/dL (14.0-18.0); IMM GRAN# 0.03 X1000 (0.0-0.04); LYMPH# 0.71 X1000 (1.2-3.4); MCH 26.4 PG (27-31); MCHC 33.4 g/dL (33-37); MCV 78.9 FL (81-99); MONO# 0.49 X1000 (0.11-0.59); MONO% 33.1 % (1.7-9.3); MPV 8.1 FL (7.4-10.4); NEUT% 11.5 % (42.2-75.2); PLT 204 X1000 (130-400); RBC 4.97 XMIL (4.7-6.1); RDW 14.1 % (11.5-14.5); WBC 1.48 X1000 (4.8-10.8)
[2019-11-17 16:43] LABS: NEUT# 0.17 X1000 (1.4-6.5)
[2019-11-17] MEDS ORDERED: NS 1,000 ML IV ONE (16:45)
[2019-11-17 16:54] LABS: ANISOCYTOSIS 2+; LARGE PLATELETS 1+; LYMPHS 60 % (21-51); MONO 30 % (1-9); SEGS 10 % (42-75)
[2019-11-17 17:06] LABS: ESTIMATED GFR > 60
[2019-11-17 17:16] LABS: AGAP 16; ALB/GLOB RATIO 0.7; ALKALINE PHOSPHATASE 72 U/L (32-122); BUN 7 mg/dL (8-22); CALCIUM 8.9 mg/dL (8.8-10.2); CHLORIDE 88 mmol/L (98-107); COSMO 258; CREATININE 0.7 mg/dL (0.7-1.2); GLUCOSE 279 mg/dL (70-104); GOT 10 U/L (10-34); GPT 5 U/L (10-44); POTASSIUM 4.4 mmol/L (3.5-5.1); SODIUM 124 mmol/L (136-145); TCO2 20 mmol/L (25-35); TOTAL BILIRUBIN 0.72 mg/dL (0.20-1.00); TOTAL PROTEIN 7.3 g/dL (6.3-8.3)
[2019-11-17] MEDS ORDERED: MAXIPIME 1 GM in NS 50 ML IV ONE (17:21)
[2019-11-17] MEDS ORDERED: VANCOMYCIN 1 GM/NS 1 GM/250 ML IVPB IV ONE (17:21)
[2019-11-17 17:31] LABS: URINE SOURCE CATH
[2019-11-17 17:36] LABS: BILIRUBIN URINE NEGATIVE (NEGATIVE); BLOOD URINE NEGATIVE (NEGATIVE); COLOR YELLOW; GLUCOSE URINE >1000 mg/dL (NEGATIVE); KETONE URINE NEGATIVE (NEGATIVE); LEUKOCYTES URINE NEGATIVE (NEGATIVE); NITRITE URINE NEGATIVE (NEGATIVE); PH URINE 6.5; PROTEIN URINE 30 mg/dL (NEGATIVE); TURBIDITY URINE CLEAR (CLEAR); UROBILINOGEN URINE 8 mg/dL (NORMAL)
[2019-11-17 17:37] LABS: UR EPITHELIAL CELLS <10 /HPF (<10); URINE BACTERIA NEGATIVE /HPF; URINE RBC <10 /HPF (<10); URINE WBC <10 /HPF (<10)
[2019-11-17 17:55] LABS: SP GRAVITY URINE < 1.005
--- NOTE | 2019-11-17 17:59 | SEPSIS: TISSUE PERFUSION ASSMT ---
Sepsis: Tissue Perfusion Assmt - Physical Exam Assessment Date: 11/17/19 Time Assessment Initialized: 17:59 Vital Signs: Last Vital Signs Temp 99.0 F 11/17/19 15:31 Pulse 102 H 11/17/19 15:31 Resp 19 11/17/19 15:31 BP 118/73 11/17/19 15:31 Pulse Ox 99 11/17/19 15:31 Height 5 ft 8 in Weight 81.647 kg Lung Sounds:: lungs clear Heart Sounds:: Regular Capillary Refill Time: Less Than 2 Seconds Peripheral Pulse Evaluation:: radial (R): 2+, radial (L): 2+ Skin Exam:: pink, turgor good - Impression Impression:: Tissue Perfusion Adequate - Plan Plan:: See Orders
--- NOTE | 2019-11-17 17:59 | PROVIDER DOCUMENTATION ---
This chart was entered by Katrina Vasquez Scribe, acting as scribe for Flo Ernst MD. HPI-Male Problem - General Chief Complaint: Male Stated Complaint: CRAMPS/BLADDER ISSUES Time Seen by Provider: 11/17/19 16:50 Source: patient, family (sister) Allergies/Adverse Reactions: Patient Allergies Allergy/AdvReac Type Severity Reaction Status Date / Time No Known Allergies Allergy Verified 06/30/19 17:34 Home Medications: Home Medication List Medication Instructions Recorded Confirmed Last Taken Type Folic Acid 0.4 mg PO DAILY #30 tab 02/23/19 06/30/19 03/16/19 Rx Gabapentin [Neurontin] 100 mg PO QHS #30 cap 02/23/19 06/30/19 03/16/19 Rx Insulin Human NPH [Humulin N] 25 unit SUBQ BID #4 vial 02/23/19 06/30/19 06/30/19 Rx Metformin HCl 500 mg PO BID #60 tab 02/23/19 06/30/19 03/23/19 06:30 Rx Chlorhexidine Gluconate Liquid 1 applic TOP DAILY 30 Days #1 07/17/19 Unknown Rx [Hibiclens Liquid] bottle Lactulose 30 ml PO BID 30 Days #1 udc 07/17/19 Unknown Rx Multivit,Fe,Ca,FA & Min [Thera M 1 ea PO DAILY tab 07/17/19 Unknown Rx Plus] Polyethylene Glycol 3350 [Miralax] 17 gm PO BID 30 Days #1 powder, 07/17/19 Unknown Rx packet - History of Present Illness-Male Nature of Presenting Problem: 59 yowm presents to the ed from [facility] due to urinary retention. pt was having a CT at [facility] and was talking about not being able to urinate since last night. pt has had dysuria 2 days prior to not being able ti urinate. pt is a cancer pt and is currently taking oral chemo. pt once butler cath was in place had relief of abd pain and pressure Location of Complaint: reports: suprapubic Quality of Pain: reports: fullness, pressure Severity in ED: reports: severe Onset/Duration: reports: last night Timing: reports: still present, constant, getting worse Context/Activities at Onset: reports: light activity Urinary Symptoms: reports: dysuria, retention Sexual intercourse history: reports: Not Active Contraception: reports: none Associated Symptoms: reports: denies symptoms Similar Symptoms Previously?: No Recently seen or treated by another doctor?: Yes (oncology) Review of Systems - Adult - REVIEW OF SYSTEMS - ADULT Constitutional: denies: chills, fever Eyes: reports: no symptoms reported Ears, Nose, Mouth & Throat: reports: no symptoms reported Cardiovascular: denies: chest pain, palpitations Respiratory: denies: cough, shortness of breath, wheezing Gastrointestinal: reports: see HPI, abdominal pain. denies: diarrhea, nausea, v omiting Genitourinary: reports: see HPI, dysuria, urinary retention Musculoskeletal: denies: back pain, neck pain Integumentary: reports: no symptoms reported Neurological: reports: no symptoms reported Psychiatric: reports: no symptoms reported Endocrine: reports: no symptoms reported Hematologic/Lymphatic: reports: no symptoms reported Allergic/Immunologic: reports: no symptoms reported All Other Systems: Reviewed and Negative Past History - Adult - PAST MEDICAL HISTORY-ADULT Review of Records: reports: Old Records Reviewed, Nursing Assessment Review, Medications Reviewed, Social history reviewed & non-contributory. Major Childhood Illnesses: reports: denies history Cardiovascular: reports: HTN Respiratory: reports: denies history Gastrointestinal: reports: denies history Genitourinary: reports: denies history Musculoskeletal: reports: denies history Neurological: reports: denies history Psychiatric: reports: denies history Endocrine/Immune: reports: Diabetes, immunosuppression, Leukemia, other (pancytopenia) Diabetes Type: Type 2 Other Conditions: reports: denies history - PRIOR SURGERIES/PROCEDURES Surgical/Procedure History: reports: cardiac stent - IMMUNIZATION STATUS Childhood Immunizations: See Nurse Assessment Flu Vaccine: See Nurse Assessment - FAMILY HISTORY Family History: reviewed, not pertinent - SOCIAL HISTORY Smoking: cigarettes, greater than 1 pack/day Provider spent 3-5 mins advising pt. on dangers of tobacco.: Discussed manners to quit use, and f/u contacts for add'l counseling. Substance Use: alcohol Alcohol Use Frequency: every day Number of drinks per typical drinking period:: 2 drinks (beers) Living Situation: family Physical Exam-General - PHYSICAL EXAM-ADULT Initial Vital Signs Reviewed: Yes - CONSTITUTIONAL General Appearance: alert, mild distress - EYES Eyes: PERRL/EOMI - HEAD, EARS, NOSE, MOUTH & THROAT HENMT: negative: moist mucous membranes (dry oral) - NECK Neck: non-tender, full range of motion, supple, normal inspection - RESPIRATORY Respiratory: chest non-tender, lungs clear, normal breath sounds - CARDIOVASCULAR Cardiovascular: normal peripheral pulses, tachycardia (102) - CHEST (BREASTS) Chest/Breast: deferred - GASTROINTESTINAL (ABDOMEN) Abdominal Exam: distended, tenderness (with urine retention) - GENITOURINARY Male Genitalia: normal genitalia, circumcised, other (unable to urinate so butler was placed and pt had relief of pressure frombladder) Rectal Exam: deferred Hemoccult Exam: deferred - LYMPHATIC Lymphatic: no adenopathy - MUSCULOSKELETAL Back Exam: no CVA tenderness, no vertebral tenderness Extremity: normal range of motion, non-tender, normal inspection - SKIN Integumentary: normal color, warm/dry - NEUROLOGIC Neurologic: grossly normal - PSYCHIATRIC Psych/Mental Status: normal mood/affect, normal thought content, normal thought process, oriented x 3 Progress - PLAN OF CARE/RESULTS Progress/Plan/Lab Results: Vital Signs - 8 hr 11/17/19 15:31 Temperature 99.0 F Pulse Rate 102 H Respiratory Rate 19 Blood Pressure 118/73 O2 Sat by Pulse Oximetry 99 Laboratory Results - last 24 hr 11/17/19 11/17/19 11/17/19 06:08 06:08 17:10 WBC 1.48 L RBC 4.97 Hgb 13.1 L Hct 39.2 L MCV 78.9 L MCH 26.4 L MCHC 33.4 RDW Std Deviation 14.1 Plt Count 204 MPV 8.1 Immature Gran % (Auto) 2.0 H Neut % (Auto) 11.5 L Lymph % (Auto) 48.0 Talbot % (Auto) 33.1 H Eos % (Auto) 0.0 Baso % (Auto) 5.4 H Immature Gran # (Auto) 0.03 Neut # (Auto) 0.17 L* Lymph # (Auto) 0.71 L Talbot # (Auto) 0.49 Eos # (Auto) 0.00 Baso # (Auto) 0.08 Segmented Neutrophils 10 L Lymphocytes 60 H Monocytes 30 H Large Platelets 1+ Anisocytosis 2+ Sodium 124 L Potassium 4.4 Chloride 88 L Carbon Dioxide 20 L Anion Gap 16 BUN 7 L Creatinine 0.7 Estimated GFR/1.73 m2 > 60 BUN/Creatinine Ratio 10 Glucose 279 H Calculated Osmolality 258 Calcium 8.9 Total Bilirubin 0.72 AST 10 ALT 5 L Alkaline Phosphatase 72 Total Protein 7.3 Albumin 3.0 L Globulin 4.3 Albumin/Globulin Ratio 0.7 Urine Source CATH Urine Color YELLOW Urine Turbidity CLEAR Urine pH 6.5 Urine Protein 30 A Ur Glucose (Stick) >1000 A Ur Ketones (Stick) NEGATIVE Urine Blood NEGATIVE Urine Nitrite NEGATIVE Urine Bilirubin NEGATIVE Urobilinogen Dipstick 8 A Urine Leukocytes NEGATIVE Urine WBC (Auto) <10 Urine RBC (Auto) <10 U Epithel Cells (Auto) <10 Urine Bacteria (Auto) NEGATIVE Orders Category Date Time Status Butler Cath Insertion ORDERED Care 11/17/19 15:52 Active CHEST-2 VIEWS [RAD] Stat Exams 11/17/19 16:45 Taken BLOOD CULTURE [BLDCUL] Stat Lab 11/17/19 16:45 Ordered CBC WITH ELECTRONIC DIFF [HEME] Stat Lab 11/17/19 06:08 Completed COMPREHENSIVE METABOLIC PANEL [CHEM] Stat Lab 11/17/19 06:08 Completed INFLUENZA SCREEN A/B Stat Lab 11/17/19 16:45 Uncollected LACTATE, PLASMA [CHEM] Stat Lab 11/17/19 16:44 Uncollected URINALYSIS W/POSS RFLX CULT [URINALYSIS] Stat Lab 11/17/19 17:10 Results 0.9% Sodium Chloride Inj [Ns] 1,000 ml Med 11/17/19 16:45 Discontinued IV 999 mls/hr CefEPIME [Maxipime] 1 gm Med 11/17/19 17:21 Discontinued 0.9% Sodium Chloride Inj [Ns] 50 ml IV NOW Vancomycin 1 gm/Ns Med 11/17/19 17:21 Active 1 gm in 250 ml IV NOW Result Diagrams: 11/17/19 06:08 11/17/19 06:08 - REASSESSMENT Reassessment #1 Time Reassessed: 17:25 Status: improving (dr at bedside) Reassessment #2 Time Reassessed: 17:55 Status: improving (Given IV vanc/maxepime, meets criteria for sepsis with 2 SIRS criteria (neutropenia and tachycardia). Butler placed, greater than 1L of cloudy yellow urine output.) - CONSULTS/PCP/HOSPITALIST Notification #1 *Consult/PCP/Hospitalist*: hositalist Time Discussed: 17:43 (spoke with keysha) Reason/Comments: spoked with quansah in ed Consult Disposition: Will see in ED, Admit Departure - Departure Date of Disposition Decision: 11/17/19 Time of Disposition Decision: 17:57 DIAGNOSIS: Urinary retention with incomplete bladder emptying Sepsis due to Escherichia coli Qualifiers: Sepsis acute organ dysfunction status: with acute organ dysfunction Severe sepsis acute organ dysfunction type: unspecified Severe sepsis shock status: without septic shock Qualified Code(s): A41.51 - Sepsis due to Escherichia coli [E. coli]; R65.20 - Severe sepsis without septic shock UTI (urinary tract infection) Qualifiers: Urinary tract infection type: acute cystitis Hematuria presence: with hematuria Qualified Code(s): N30.01 - Acute cystitis with hematuria Leukemia in relapse Qualifiers: Leukemia type: unspecified Qualified Code(s): C95.92 - Leukemia, unspecified, in relapse Disposition: ADMITTED INPATIENT 09 Certified Medical Emergency: Emergent Condition: Serious Referrals and Follow-Ups: None,PCP [Primary Care Provider] - - Critical Care Note This patient required my direct & personal management of CC.: Yes Total Time (mins): 40 Critical Care Statement: This patient required my direct personal management to treat or rule out processes, the absence of which, could potentiallly result in sudden, clinically significant life or limb threatening deterioration. Attestation - Physician/ JODI Attestation Patient care was provided by Advanced Practice Provider:: No The physician spent face to face time with patient:: Yes Advanced Practice Provider documentation review:: Supervising physician onsite and consulted in the evaluation and care of this patient. The physician did have a face to face encounter with the patient. This chart was documented by the indicated scribe, (Katrina Vasquez Scribe) and accurately reflects the services I performed and decisions made by me, Flo Ernst MD, as attested by the provider's signature.
--- NOTE | 2019-11-17 18:46 | Diag Imaging Result Doc PS360 ---
EXAM: CHEST-2 VIEWS INDICATION: short of breath TECHNIQUE: 2 views COMPARISON: 06/30/2019 FINDINGS: The lungs are grossly clear. There is no discrete pleural fluid collection or pneumothorax. The cardiomediastinal silhouette and central vasculature are grossly unremarkable. IMPRESSION: No evidence of acute pathology by plain radiograph. Electronically signed by Alfonso Yang 11/17/2019 6:44 PM
[2019-11-17] MEDS ORDERED: VANCOMYCIN IV PER PHARMACY MISC SCH (19:00)
[2019-11-17] MEDS ORDERED: TYLENOL PO PRN (19:00)
[2019-11-17] MEDS ORDERED: ZOFRAN IV PRN (19:00)
--- NOTE | 2019-11-17 19:54 | HISTORY AND PHYSICAL ---
HISTORY OF PRESENT ILLNESS:: Mr. Salcido is a 59-year-old who states that about a week ago he began having trouble with constipation. He noticed he had trouble with voiding off and on. Yesterday evening and today he has been very uncomfortable. Actually, he has followed with Dr. Cintron. He is being treated for leukemia. He had a CT scan done, and they found he had neutropenia. When he arrived, he could not void. They got, I think, over 1 liter of postvoid residual. He feels a little better but still uncomfortable. It looks like a urinary tract infection. We are going to admit for febrile neutropenia and treat for urinary tract infection. We will start off broad spectrum for covering gram-positives and gram-negatives with vancomycin and cefepime. PAST MEDICAL HISTORY: 1. Longstanding history of alcoholism. 2. COPD. 3. Diabetes mellitus type 2. 4. Was admitted back in January for pancytopenia, and he had sublaryngeal epiglottitis. Workup was done to evaluate the source of pancytopenia. His RICHARD was initially elevated. Subsequent workup could not find an overt cause. He had a flow cytometry done which, according to the workup, is essentially negative. CEA was done which was negative. Anemia workup was uneventful and did not show any overt etiology. Hemoglobin A1c was 10.8. Bone marrow biopsy, according the patient, informed that it was totally negative. Actually, when I looked for the bone marrow biopsy, it showed hypercellular cells and decreased iron storage, which was odd in the face of pancytopenia. The patient was eventually found to have leukemia. He has had a long history of night sweats, 3-month history of low-grade fevers. They had not seen any insect bites, and so he had eventual workup and now is being treated for leukemia by Dr. Cintron. SOCIAL HISTORY: He used to drink about 1 to 2 beers a day. Apparently, he quit. He smokes about a half a pack a day, and I am not sure if he is still smoking now. No illicit drugs. He lives with his son. FAMILY HISTORY: Patient denies any family history of cancer or dementia in first-degree relatives. REVIEW OF SYSTEMS: Constitutional: They have not noticed any weight gain or loss. HEENT: No change in visual or hearing acuity. Respiratory: No increased work of breathing or dyspnea. Cardiovascular: No chest pain or tachy-palpitation. GI/: He has been constipated over a week. No hematochezia reported. Has had difficulty with voiding, especially in the last 48 hours. Denies any rash. Denies any focal joint pain. PHYSICAL EXAMINATION: VITAL SIGNS: Temperature 99.0, pulse 102, respirations 19, blood pressure 118/73. Weight 180 pounds, height 5 feet 8 inches. HEENT: Pupils were equal. NECK: No distended neck veins. LYMPH: I did not appreciate any cervical, axillary, supraclavicular or femoral adenopathy. LUNGS: Clear, anterolateral. CARDIOVASCULAR: Regular rhythm and rate without murmur or S3. ABDOMEN: Soft. Still uncomfortable from his bladder distention. : He has a Atkinson catheter. SKIN: Warm and dry without any rash. Oral and nasal mucosa without any lesions. LABORATORY DATA: White count is 1480, hematocrit is 39, platelet count 204,000. He has 11% neutrophils, 48% lymphocytes. Sodium 124, potassium 4.4, chloride 88, bicarb 20, BUN 7, creatinine 0.7. Calculated osmolality 258. Calcium was 8.9. AST was 10, ALT was 5, alkaline phosphatase 72, albumin was 3.0. Urinalysis unremarkable. Chest x-ray reported no evidence of acute pathology. ASSESSMENT AND PLAN: 1. Neutropenia with signs of urinary tract infection and fever. We are going to put him on broad- spectrum antibiotics to cover for gram-positive and gram-negative in the face of neutropenia. 2. Bladder retention. I did not do a prostate exam in the face of neutropenia at this time, and he had a Atkinson catheter placed already, but I suspect this is benign prostatic enlargement, possible prostatitis. We will check a PSA just to see what is, but we will put him on antibiotics and put him in isolation. 3. Treated for leukemia. He said it was large-cell leukemia. I am not sure if this is acute myelocytic leukemia or acute lymphocytic leukemia, but we will see if we can get some more history on that. 4. Diabetes mellitus type 2. Will check pattern sugars. 5. History of alcoholism in the past. He denies any alcohol recently. 6. chronic obstructive pulmonary disease. He does not have any difficulty breathing and no exacerbation at this time. 7. Nutrition seems to be good. 8. Constipation. We will put him on some MiraLAX 17 grams p.o. twice a day and put him on some lactulose 30 mL twice a day and see if we can get some results. cc: Roberto Herrera MD
[2019-11-17] MEDS: NORCO-10 PO PRN (21:49)
[2019-11-17] MEDS: NEURONTIN PO SCH (21:49)
[2019-11-17] MEDS: NS 1,000 ML IV SCH (21:49)
[2019-11-17] MEDS ORDERED: VANCOMYCIN 1,200 MG in NS 250 ML IV ONE (23:00)
[2019-11-17] MEDS: HUMULIN N SUBQ SCH (23:46)
[2019-11-17] MEDS: HUMULIN R SUBQ SCH (23:47)
[2019-11-18] MEDS: GLUCOPHAGE PO SCH ×3 (00:06→23:12)
[2019-11-18] MEDS: LACTULOSE PO SCH ×3 (00:42→23:12)
[2019-11-18] MEDS: MIRALAX PO SCH ×3 (00:42→23:13)
[2019-11-18] MEDS: MAXIPIME 1 GM in NS 50 ML IV SCH ×2 (06:18→17:07)
[2019-11-18] MEDS: HUMULIN R SUBQ SCH ×4 (06:18→23:13)
[2019-11-18] MEDS: NORCO-10 PO PRN ×3 (06:46→23:14)
[2019-11-18 07:58] LABS: BASO# 0.01 X1000 (0.0-0.2); BASO% 1.1 % (0.0-0.8); HEMATOCRIT 33.5 % (42.0-52.0); HEMOGLOBIN 10.8 g/dL (14.0-18.0); LYMPH% 52.6 % (20.5-51.1); MCH 25.8 PG (27-31); MCHC 32.2 g/dL (33-37); MCV 80.1 FL (81-99); MONO# 0.32 X1000 (0.11-0.59); MONO% 33.7 % (1.7-9.3); MPV 8.2 FL (7.4-10.4); NEUT# 0.12 X1000 (1.4-6.5); NEUT% 12.6 % (42.2-75.2); PLT 189 X1000 (130-400); RBC 4.18 XMIL (4.7-6.1); WBC 0.95 X1000 (4.8-10.8)
[2019-11-18 08:10] LABS: AGAP 10; ALB/GLOB RATIO 0.7; ALBUMIN 2.6 g/dL (3.5-5.0); ALKALINE PHOSPHATASE 64 U/L (32-122); BUN 7 mg/dL (8-22); CHLORIDE 94 mmol/L (98-107); COSMO 262; CREATININE 0.5 mg/dL (0.7-1.2); ESTIMATED GFR > 60; GLUCOSE 219 mg/dL (70-104); GOT 10 U/L (10-34); GPT 5 U/L (10-44); MAGNESIUM 1.4 mg/dL (1.5-2.7); POTASSIUM 3.9 mmol/L (3.5-5.1); SODIUM 128 mmol/L (136-145); TCO2 24 mmol/L (25-35); TOTAL BILIRUBIN 0.48 mg/dL (0.20-1.00); TOTAL PROTEIN 6.1 g/dL (6.3-8.3)
[2019-11-18] MEDS: HUMULIN N SUBQ SCH ×2 (08:26→23:12)
[2019-11-18 08:45] LABS: LYMPHS 60 % (21-51)
[2019-11-18 08:46] LABS: MONO 30 % (1-9); SEGS 10 % (42-75)
[2019-11-18] MEDS: VANCOMYCIN 1,800 MG in NS 500 ML IV SCH ×2 (11:14→23:13)
[2019-11-18] MEDS ORDERED: VANCOMYCIN IV PER PHARMACY MISC SCH (12:15)
--- NOTE | 2019-11-18 12:40 | PROGRESS NOTE ---
DATE: 11/18/2019 SUBJECTIVE: Mr. Salcido feels much better. His abdomen feels better. Atkinson catheter is still in place. White count did dip down some more today. OBJECTIVE: Vital Signs: Temp 97.7 degrees, pulse 80, respirations 16, blood pressure 98/65. HEENT: Pupils are equal and round. Lungs: Clear in all lung wick. Cardiovascular: Regular rhythm and rate without murmur or S3. Urine output is 3400 mL. ASSESSMENT AND PLAN: 1. Neutropenia. His total white count is 950, and only 12% neutrophils. Treating for urinary tract infection and urinary retention. 2. Bladder retention. Will ask Urology to evaluate, but he has a Atkinson catheter in. When they placed the catheter, he had over 1000 mL residual. 3. Treating for leukemia. Oncology will follow. 4. Diabetes mellitus type 2. 5. History of alcoholism in the past. 6. Chronic obstructive pulmonary disease. No troubles with breathing or air gas exchange. 7. Nutrition seems to be pretty good. 8. Constipation. We have him on MiraLAX 17 grams by mouth twice a day and lactulose 30 mL twice a day. He has had no results yet. REVIEW OF ORDERS: He is on Neurontin 100 mg at bedtime, Tylenol 650 mg every 6 hours p.r.n., hydrocodone 10 mg t.i.d. p.r.n., Humulin insulin NPH 25 units subcutaneously twice a day, lactulose 30 mL twice a day, cefepime 1 gram IV every 12 hours, metformin 500 mg p.o. b.i.d., normal saline 85 mL an hour, MiraLAX 17 grams p.o. b.i.d., vancomycin 1800 mg IV every 12 hours, cefepime was given 1 dose when he came in, a loading dose of vancomycin was given at 1200 mg. CULTURES: Pending his blood cultures. His influenza screen was negative. cc: Roberto Herrera MD
[2019-11-18] MEDS: GRANIX SUBQ SCH (14:33)
[2019-11-18] MEDS: NS 1,000 ML IV SCH (17:07)
[2019-11-18] MEDS: NEURONTIN PO SCH (23:12)
[2019-11-19] MEDS: NS 1,000 ML IV SCH ×3 (05:24→12:15)
[2019-11-19] MEDS: GLUCOPHAGE PO SCH ×3 (06:18→20:28)
[2019-11-19] MEDS: HUMULIN R SUBQ SCH ×4 (06:18→20:29)
[2019-11-19] MEDS: MAXIPIME 1 GM in NS 50 ML IV SCH ×2 (07:00→17:28)
[2019-11-19 08:16] LABS: BASO# 0.03 X1000 (0.0-0.2); BASO% 2.3 % (0.0-0.8); EOS# 0.01 X1000 (0.0-0.7); EOS% 0.8 % (0.0-10.0); HEMATOCRIT 35.3 % (42.0-52.0); HEMOGLOBIN 11.3 g/dL (14.0-18.0); LYMPH% 46.9 % (20.5-51.1); MCV 81.1 FL (81-99); MONO# 0.38 X1000 (0.11-0.59); MONO% 29.7 % (1.7-9.3); MPV 8.8 FL (7.4-10.4); NEUT# 0.26 X1000 (1.4-6.5); NEUT% 20.3 % (42.2-75.2); PLT 130 X1000 (130-400); RBC 4.35 XMIL (4.7-6.1); WBC 1.28 X1000 (4.8-10.8)
[2019-11-19] MEDS ORDERED: CYTOXAN PO SCH (09:00)
[2019-11-19 09:01] LABS: AGAP 11; ALB/GLOB RATIO 0.8; ALBUMIN 2.6 g/dL (3.5-5.0); ALKALINE PHOSPHATASE 66 U/L (32-122); BUN 7 mg/dL (8-22); CALCIUM 8.5 mg/dL (8.8-10.2); CHLORIDE 97 mmol/L (98-107); COSMO 260; CREATININE 0.6 mg/dL (0.7-1.2); ESTIMATED GFR > 60; GLUCOSE 114 mg/dL (70-104); GOT 9 U/L (10-34); GPT 5 U/L (10-44); MAGNESIUM 1.2 mg/dL (1.5-2.7); POTASSIUM 3.8 mmol/L (3.5-5.1); SODIUM 130 mmol/L (136-145); TCO2 22 mmol/L (25-35); TOTAL BILIRUBIN 0.71 mg/dL (0.20-1.00)
[2019-11-19 09:14] LABS: BANDS 8 % (0-1); LYMPHS 60 % (21-51); MONO 16 % (1-9); SEGS 16 % (42-75)
[2019-11-19] MEDS: PREDNISONE PO SCH (09:25)
[2019-11-19] MEDS: GRANIX SUBQ SCH (09:25)
[2019-11-19] MEDS: LACTULOSE PO SCH ×2 (09:26→20:28)
[2019-11-19] MEDS: MIRALAX PO SCH ×2 (09:26→20:28)
[2019-11-19] MEDS: HUMULIN N SUBQ SCH ×2 (09:26→20:28)
[2019-11-19] MEDS: VANCOMYCIN 1,800 MG in NS 500 ML IV SCH (12:14)
--- NOTE | 2019-11-19 13:44 | PROGRESS NOTE ---
DATE: 11/19/2019 SUBJECTIVE: Mr. Salcido feels a little better. His abdomen is still having some cramping. OBJECTIVE: Vitals: He remains afebrile, temperature 98.2 degrees, pulse 89, respirations 18, blood pressure 95/68. HEENT: Pupils are equal and round. Lungs: Clear in all lung wick. Cardiovascular: Regular rhythm and rate without murmur or S3. Abdomen: Soft. Skin: Warm and dry. ASSESSMENT AND PLAN: 1. T-cell large granular lymphocytic leukemia. He is on prednisone 20 mg every other day, no evidence of mass or enlarged adenopathy on CAT scan. 2. Neutropenia. We will continue his reverse isolation and continue broad-spectrum antibiotics. 3. UTI and fever, on broad-spectrum antibiotics. Cultures pending. 4. Urinary retention. He has a Atkinson catheter in. PSA within normal limits. Suspect benign prostatic hypertrophy. We will get Urology involved. 5. Poorly controlled diabetes mellitus, type 2. Continue sliding scale insulin. DIAGNOSTIC DATA: His counts today have come up. White blood cell count is encouraging. Still neutropenic. Electrolytes with sodium 130, potassium 3.8, chloride 97, BUN 7, creatinine 0.6. Blood sugars 179, 114, and 20 2. MEDICATIONS: He is on cefepime and vancomycin. Started Granulex at 480 mcg subcutaneously daily. cc: Roberto Herrera MD
[2019-11-19] MEDS: NORCO-10 PO PRN (14:14)
[2019-11-19] MEDS: NEURONTIN PO SCH (20:28)
[2019-11-20] MEDS: MAXIPIME 1 GM in NS 50 ML IV SCH ×2 (05:10→17:39)
[2019-11-20] MEDS: HUMULIN R SUBQ SCH ×4 (06:19→21:27)
[2019-11-20 08:27] LABS: BASO# 0.04 X1000 (0.0-0.2); BASO% 2.8 % (0.0-0.8); HEMATOCRIT 34.7 % (42.0-52.0); HEMOGLOBIN 11.4 g/dL (14.0-18.0); LYMPH# 0.76 X1000 (1.2-3.4); LYMPH% 52.8 % (20.5-51.1); MCH 26.3 PG (27-31); MCHC 32.9 g/dL (33-37); MCV 80.1 FL (81-99); MONO# 0.48 X1000 (0.11-0.59); MONO% 33.3 % (1.7-9.3); MPV 8.5 FL (7.4-10.4); NEUT# 0.16 X1000 (1.4-6.5); NEUT% 11.1 % (42.2-75.2); PLT 139 X1000 (130-400); RBC 4.33 XMIL (4.7-6.1); RDW 14.1 % (11.5-14.5); WBC 1.44 X1000 (4.8-10.8)
[2019-11-20 08:41] LABS: AGAP 11; ALB/GLOB RATIO 0.7; ALBUMIN 2.6 g/dL (3.5-5.0); ALKALINE PHOSPHATASE 72 U/L (32-122); BUN 5 mg/dL (8-22); CALCIUM 8.6 mg/dL (8.8-10.2); CHLORIDE 100 mmol/L (98-107); COSMO 270; CREATININE 0.6 mg/dL (0.7-1.2); ESTIMATED GFR > 60; GLUCOSE 148 mg/dL (70-104); GOT 7 U/L (10-34); GPT 5 U/L (10-44); MAGNESIUM 1.3 mg/dL (1.5-2.7); POTASSIUM 3.8 mmol/L (3.5-5.1); SODIUM 135 mmol/L (136-145); TCO2 24 mmol/L (25-35); TOTAL BILIRUBIN 0.58 mg/dL (0.20-1.00); TOTAL PROTEIN 6.1 g/dL (6.3-8.3)
[2019-11-20 08:48] LABS: BANDS 12 % (0-1); LYMPHS 64 % (21-51); MONO 12 % (1-9); SEGS 8 % (42-75)
[2019-11-20] MEDS: NORCO-10 PO PRN ×2 (10:04→19:34)
[2019-11-20] MEDS: GLUCOPHAGE PO SCH ×2 (10:04→21:26)
[2019-11-20] MEDS: MIRALAX PO SCH ×2 (10:04→21:28)
[2019-11-20] MEDS: LACTULOSE PO SCH ×2 (10:04→21:26)
[2019-11-20] MEDS: HUMULIN N SUBQ SCH ×2 (10:05→21:26)
[2019-11-20] MEDS: NS 1,000 ML IV SCH ×3 (10:05→21:26)
[2019-11-20] MEDS: GRANIX SUBQ SCH (10:12)
[2019-11-20] MEDS: VANCOMYCIN 1,500 MG in NS 250 ML IV SCH (13:17)
[2019-11-20] MEDS: FLOMAX PO SCH ×2 (14:12→21:26)
--- NOTE | 2019-11-20 14:21 | PROGRESS NOTE ---
DATE: 11/20/2019 SUBJECTIVE: Mr. Salcido is feeling better. He feels a little stronger. Atkinson catheter still in place. OBJECTIVE: Vital Signs: Temperature 98 degrees, remains afebrile, pulse 89, respirations 20, blood pressure 145/123, but his last several blood pressures are 109/69, 122/75, 119/76, 125/79. HEENT: Pupils are equal and round. Lungs: Clear in all lung wick. Cardiovascular: Regular rhythm and rate without murmur or S3. Abdomen: Soft. Skin: Warm and dry. ASSESSMENT AND PLAN: 1. T-cell large granular lymphocytic leukemia, getting prednisone 20 mg every other day. No evidence of mass or enlarged adenopathy on CT scan. 2. Neutropenia and treating for urinary tract infection. Note, his neutrophils are coming up nicely. His total white count is 1440, platelet count 139,000, hematocrit 34, hemoglobin 11. Continue present antibiotics in isolation. 3. Urinary retention. He has a Atkinson catheter in. I am going to put him on high-dose Flomax for right now and hopefully he can get the Atkinson catheter out and we will see how he voids. He will be here for the next 48 hours for 48 hours of antibiotics. cc: Roberto Herrera MD
--- NOTE | 2019-11-20 18:48 | HEMO/ONC CONSULTATION ---
DATE: 11/18/2019 ADMITTING PHYSICIAN: Dr. Herrera REQUESTING PHYSICIAN: Dr. Herrera We appreciate this consult. CHIEF COMPLAINT: Lymphocytic leukemia. HISTORY OF PRESENT ILLNESS: Mr. Tevin Salcido is a 59-year-old male well known to Dr. Cintron with a history of T-cell large granular lymphocytic leukemia. He is currently on prednisone 20 mg every other day with no evidence of mass or enlarged adenopathy on recent CT scan. The patient has been persistently neutropenic, and is followed in clinic regularly for review of CBC. The patient presented to [facility] for CT of the abdomen and pelvis, and was found to have approximately 1100 mL in his bladder. The patient reported that he was unable to urinate. Additionally, he reported recent fevers. It was suggested that the patient present to [facility] secondary to urinary retention and inability to urinate. Upon presentation, the patient underwent insertion of Atkinson catheter with greater than 1000 mL of urine. Additionally, the patient underwent urinalysis which revealed urinary tract infection. The patient was admitted for questionable sepsis, urinary tract infection, and urinary retention. We are consulted as the patient is well known to us. PAST MEDICAL HISTORY: 1. Alcoholism. 2. COPD. 3. Diabetes mellitus type 2. 4. T-cell large granular lymphocytic leukemia. PAST SURGICAL HISTORY: None. SOCIAL HISTORY: The patient reports that he has quit drinking alcohol. He currently smokes 1/2 pack cigarettes daily. He does not use illicit drugs. FAMILY HISTORY: Negative for any hematologic or oncologic disease. MEDICATIONS ON ADMISSION: 1. Cyclophosphamide. 2. Folic Acid. 3. Gabapentin. 4. Humulin NPH insulin. 5. Metformin. 6. Neurontin. 7. [place]. 8. Phospho neutral. 9. Prednisone. ALLERGIES: The patient has no known drug allergies. REVIEW OF SYSTEMS: A 14 point review of systems was obtained, and is negative except for mentioned in HPI. PHYSICAL EXAMINATION: General: Mr. Salcido is a pleasant 59-year-old male lying supine in bed in no immediate distress. Vital Signs: Temperature 98.1, blood pressure 112/69, heart rate 88, respirations 16, and O2 saturation is 97% on room air. HEENT: Normocephalic, atraumatic. Mucous membranes are slightly pale and moist. Sclerae anicteric. Extraocular movements intact. Neck: Supple. Lungs: Clear to auscultation bilaterally. Chest expansion is equal bilaterally. CV: S1, S2 is heard without murmur, rub or gallop. Abdomen: Nondistended. Extremities: No clubbing, cyanosis, or edema. Dermatologic: No rashes, bruises or lesions. Neurologic: The patient is awake, alert, and oriented x3. He has no focal deficit. Gait is normal. LABORATORY DATA: Hemoglobin 10.8, hematocrit 33.5, white blood cell count 0.95, and platelets 189,000. ANC 0.12. Sodium 128, potassium 3.9, chloride 94, CO2 is 24, BUN 7, creatinine 0.5, glucose 219, calcium 8.0, and magnesium 1.4. PSA is 0.33. IMAGING STUDIES: CT of the chest, abdomen, and pelvis reveals no suspicious parenchymal mass or enlarged adenopathy. The bladder does appear to have greater than 1000 mL of urine. ASSESSMENT AND PLAN: 1. T-cell large granular lymphocytic leukemia currently on prednisone 20 mg every other day. The patient has no evidence of mass or enlarged adenopathy on CT. 2. Neutropenia, persistent. Would continue reverse isolation and place the patient on Granix daily. 3. Urinary tract infection and fever on broad-spectrum antibiotics. Cultures pending. 4. Urinary retention. PSA is within normal limits. Urology has been consulted. 5. Uncontrolled diabetes mellitus type 2, currently on sliding scale insulin. 6. We will follow along with you, and make further recommendations pending outcomes. The above reflects the history, exam, assessment, and plan of Dr. Cintron. Dictated by SAPNA Turcios for Nahum Cintron MD cc: SAPNA Turcios MD
[2019-11-20] MEDS: NEURONTIN PO SCH (21:26)
[2019-11-21] MEDS: VANCOMYCIN 1,500 MG in NS 250 ML IV SCH ×2 (01:06→15:17)
[2019-11-21] MEDS: HUMULIN R SUBQ SCH ×4 (06:20→21:36)
[2019-11-21] MEDS: NORCO-10 PO PRN ×2 (06:32→15:15)
[2019-11-21] MEDS: MAXIPIME 1 GM in NS 50 ML IV SCH ×2 (06:32→18:50)
[2019-11-21 08:40] LABS: BASO# 0.03 X1000 (0.0-0.2); BASO% 1.3 % (0.0-0.8); HEMOGLOBIN 10.6 g/dL (14.0-18.0); LYMPH# 0.87 X1000 (1.2-3.4); LYMPH% 38.8 % (20.5-51.1); MCH 26.5 PG (27-31); MCHC 32.1 g/dL (33-37); MCV 82.5 FL (81-99); MONO# 0.64 X1000 (0.11-0.59); MONO% 28.6 % (1.7-9.3); MPV 8.9 FL (7.4-10.4); NEUT% 31.3 % (42.2-75.2); PLT 150 X1000 (130-400); RDW 14.4 % (11.5-14.5); WBC 2.24 X1000 (4.8-10.8)
[2019-11-21 08:48] LABS: AGAP 10; ALB/GLOB RATIO 0.8; ALBUMIN 2.6 g/dL (3.5-5.0); ALKALINE PHOSPHATASE 70 U/L (32-122); BUN 5 mg/dL (8-22); CALCIUM 8.4 mg/dL (8.8-10.2); CHLORIDE 94 mmol/L (98-107); COSMO 257; CREATININE 0.7 mg/dL (0.7-1.2); ESTIMATED GFR > 60; GLUCOSE 140 mg/dL (70-104); GOT 8 U/L (10-34); GPT 5 U/L (10-44); MAGNESIUM 1.1 mg/dL (1.5-2.7); POTASSIUM 3.7 mmol/L (3.5-5.1); SODIUM 128 mmol/L (136-145); TCO2 24 mmol/L (25-35); TOTAL BILIRUBIN 0.65 mg/dL (0.20-1.00); TOTAL PROTEIN 5.8 g/dL (6.3-8.3)
[2019-11-21 09:22] LABS: BANDS 10 % (0-1); LYMPHS 46 % (21-51); MONO 16 % (1-9); NRBC 1 % (0-0); SEGS 28 % (42-75)
[2019-11-21] MEDS: GRANIX SUBQ SCH (09:41)
[2019-11-21] MEDS: PREDNISONE PO SCH (09:42)
[2019-11-21] MEDS: FLOMAX PO SCH ×2 (09:42→21:35)
[2019-11-21] MEDS: LACTULOSE PO SCH ×2 (09:42→21:35)
[2019-11-21] MEDS: GLUCOPHAGE PO SCH ×2 (09:42→21:35)
[2019-11-21] MEDS: MIRALAX PO SCH ×2 (09:42→21:37)
[2019-11-21] MEDS: HUMULIN N SUBQ SCH ×2 (09:42→21:35)
--- NOTE | 2019-11-21 09:49 | PROGRESS NOTE ---
DATE: 11/21/2019 SUBJECTIVE: Mr. Salcido is feeling better. He has a lot gas, a lot of cramping. Atkinson catheter is still in place. Remains afebrile. OBJECTIVE: Vital signs: Temperature 98.1 degrees, pulse 92, respirations 20, blood pressure 101/73. HEENT: Pupils are equal and round. Lungs: Clear in all lung wick. Cardiovascular: Regular rhythm and rate without murmur or S3. Abdomen: Soft. Skin is warm and dry. Urine output: 5800 mL. LABORATORY DATA: Blood sugar 315, 92 and 100. ASSESSMENT AND PLAN: 1. 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 No evidence of mass or enlarged adenopathy on recent CT scan. 2. Neutropenia. 3. Treating him for a urinary tract infection. 4. Urinary retention. He has a Atkinson catheter in. I have put him on Flomax high dose. Hopefully, we can discontinue his Atkinson tomorrow. 5. Diabetes mellitus type 2. Continue pattern sugars, sliding scale. REVIEW OF HIS ORDERS: He is on cefepime 1 g IV q.12, and he is getting Granix 480 mcg subcutaneously daily and vancomycin 1500 mg IV q.12. REVIEW OF HIS LABS: His blood counts this morning have come up nicely. White count is 2240, hematocrit is 33, platelet count is 150,000. Electrolytes, sodium is 128, potassium 3.7, chloride 95, BUN 5, creatinine 0.7, so a little bit of hyponatremia, but continue present regimen. Hope to stop his Atkinson catheter tomorrow and hopefully he gets to go home on Saturday. cc: Roberto Herrera MD
[2019-11-21] MEDS: NS 1,000 ML IV SCH ×2 (15:15→15:17)
[2019-11-21] MEDS: NEURONTIN PO SCH (21:35)
[2019-11-22] MEDS: VANCOMYCIN 1,500 MG in NS 250 ML IV SCH (01:39)
[2019-11-22] MEDS: NS 1,000 ML IV SCH ×2 (01:39→13:50)
[2019-11-22] MEDS: MAXIPIME 1 GM in NS 50 ML IV SCH (05:39)
[2019-11-22] MEDS: HUMULIN R SUBQ SCH ×4 (06:19→21:20)
[2019-11-22 09:02] LABS: BASO# 0.01 X1000 (0.0-0.2); BASO% 0.4 % (0.0-0.8); HEMOGLOBIN 11.1 g/dL (14.0-18.0); LYMPH# 0.74 X1000 (1.2-3.4); MCH 26.1 PG (27-31); MCHC 31.7 g/dL (33-37); MCV 82.2 FL (81-99); MONO# 0.61 X1000 (0.11-0.59); MONO% 27.2 % (1.7-9.3); MPV 8.7 FL (7.4-10.4); NEUT# 0.88 X1000 (1.4-6.5); NEUT% 39.4 % (42.2-75.2); PLT 138 X1000 (130-400); RBC 4.26 XMIL (4.7-6.1); RDW 14.6 % (11.5-14.5); WBC 2.24 X1000 (4.8-10.8)
[2019-11-22 09:18] LABS: AGAP 12; ALB/GLOB RATIO 0.7; ALBUMIN 2.6 g/dL (3.5-5.0); ALKALINE PHOSPHATASE 88 U/L (32-122); BUN 4 mg/dL (8-22); CHLORIDE 102 mmol/L (98-107); COSMO 273; CREATININE 0.6 mg/dL (0.7-1.2); ESTIMATED GFR > 60; GLUCOSE 101 mg/dL (70-104); GOT 6 U/L (10-34); GPT 6 U/L (10-44); MAGNESIUM 1.5 mg/dL (1.5-2.7); POTASSIUM 3.6 mmol/L (3.5-5.1); SODIUM 138 mmol/L (136-145); TCO2 24 mmol/L (25-35); TOTAL BILIRUBIN 0.59 mg/dL (0.20-1.00); TOTAL PROTEIN 6.1 g/dL (6.3-8.3)
[2019-11-22] MEDS: FLOMAX PO SCH ×2 (09:41→21:18)
[2019-11-22] MEDS: LACTULOSE PO SCH ×2 (09:41→21:18)
[2019-11-22] MEDS: MIRALAX PO SCH ×2 (09:41→21:18)
[2019-11-22] MEDS: GLUCOPHAGE PO SCH ×2 (09:41→21:18)
[2019-11-22] MEDS: HUMULIN N SUBQ SCH ×2 (09:41→21:20)
[2019-11-22] MEDS: NORCO-10 PO PRN ×2 (09:42→18:42)
[2019-11-22 10:07] LABS: BANDS 14 % (0-1); LYMPHS 28 % (21-51); MONO 16 % (1-9); SEGS 36 % (42-75)
[2019-11-22] MEDS: GRANIX SUBQ SCH (10:27)
[2019-11-22] MEDS ORDERED: MILK OF MAGNESIA PO ONE (10:46)
[2019-11-22] MEDS ORDERED: DULCOLAX PR ONE (10:46)
--- NOTE | 2019-11-22 11:03 | PROGRESS NOTE ---
DATE: 11/22/2019 SUBJECTIVE: Mr. Salcido is feeling much better. He is still having some abdominal cramping. He still has Atkinson catheter in. He still feels constipated and has not had a bowel movement in a couple of days. OBJECTIVE: On exam, he is awake and alert, oriented x3. Remains afebrile, temperature 98.0 degrees, pulse 80, respirations 20, blood pressure 102/67. Pupils are equal and round. Lungs are clear in all lung wick. Cardiovascular Examination: Regular rhythm and rate without murmur or S3. Urine output is 4200 mL. ASSESSMENT AND PLAN: 1. T-cell large granular lymphocytic leukemia, presently on prednisone 20 mg a day. He had a recent CT. Did not see any evidence of mass or enlarged adenopathy. 2. Neutropenia. 3. Treating him for a urinary tract infection. 4. Urinary retention. We will see if we can get the Atkinson catheter out. I would like him to have a bowel movement and we will make sure he is on high dose Flomax. 5. Diabetes mellitus type 2. Sugars appear under good control. 6. Blood counts, neutropenia. His white count is 2240, hematocrit 35, hemoglobin 11, platelet count 138,000. His electrolytes look good. I will give him some Dulcolax suppository and milk of magnesia to see if we can get a bowel movement. See if we can discontinue the Atkinson catheter. Then I will stop his vancomycin and cefepime. See if we can get him out of here tomorrow. cc: Roberto Herrera MD
[2019-11-22] MEDS: NEURONTIN PO SCH (21:19)
[2019-11-23] MEDS: NS 1,000 ML IV SCH ×3 (02:23→16:29)
[2019-11-23] MEDS: HUMULIN R SUBQ SCH ×3 (06:02→12:22)
[2019-11-23 10:14] LABS: AGAP 10; ALB/GLOB RATIO 0.8; ALBUMIN 2.6 g/dL (3.5-5.0); ALKALINE PHOSPHATASE 106 U/L (32-122); BUN 7 mg/dL (8-22); CALCIUM 8.8 mg/dL (8.8-10.2); CHLORIDE 101 mmol/L (98-107); COSMO 270; CREATININE 0.6 mg/dL (0.7-1.2); ESTIMATED GFR > 60; GLUCOSE 97 mg/dL (70-104); GOT 9 U/L (10-34); GPT 7 U/L (10-44); MAGNESIUM 1.3 mg/dL (1.5-2.7); POTASSIUM 3.9 mmol/L (3.5-5.1); SODIUM 136 mmol/L (136-145); TCO2 25 mmol/L (25-35); TOTAL BILIRUBIN 0.69 mg/dL (0.20-1.00); TOTAL PROTEIN 5.8 g/dL (6.3-8.3)
[2019-11-23] MEDS: PREDNISONE PO SCH (10:33)
[2019-11-23] MEDS: GLUCOPHAGE PO SCH (10:33)
[2019-11-23] MEDS: FLOMAX PO SCH (10:33)
[2019-11-23] MEDS: LACTULOSE PO SCH (10:34)
[2019-11-23] MEDS: HUMULIN N SUBQ SCH (10:34)
[2019-11-23] MEDS: MIRALAX PO SCH (10:34)
[2019-11-23] MEDS: GRANIX SUBQ SCH (10:34)
[2019-11-23] MEDS: NORCO-10 PO PRN (10:34)
[2019-11-23 11:18] VITALS: BP 101/68
[2019-11-23 11:19] LABS: BASO# 0.02 X1000 (0.0-0.2); BASO% 0.7 % (0.0-0.8); EOS# 0.01 X1000 (0.0-0.7); EOS% 0.3 % (0.0-10.0); HEMATOCRIT 33.2 % (42.0-52.0); HEMOGLOBIN 10.6 g/dL (14.0-18.0); IMM GRAN# 0.02 X1000 (0.0-0.04); IMM GRAN% 0.7 % (0.0-0.5); LYMPH# 0.88 X1000 (1.2-3.4); MCH 26.4 PG (27-31); MCHC 31.9 g/dL (33-37); MCV 82.6 FL (81-99); MONO# 0.61 X1000 (0.11-0.59); MONO% 20.1 % (1.7-9.3); NEUT# 1.49 X1000 (1.4-6.5); NEUT% 49.2 % (42.2-75.2); PLT 124 X1000 (130-400); RBC 4.02 XMIL (4.7-6.1); RDW 14.8 % (11.5-14.5); WBC 3.03 X1000 (4.8-10.8)
[2019-11-23 11:51] LABS: ANISOCYTOSIS 4+; BANDS 2 % (0-1); BASO 1 % (0-1); LYMPHS 30 % (21-51); MICROCYTOSIS 4+; MONO 18 % (1-9); SEGS 49 % (42-75)
[2019-11-23 11:52] LABS: POLYCHROM 2+
--- NOTE | 2019-11-23 14:31 | DISCHARGE SUMMARY ---
ADMISSION DATE: 11/17/2019 DISCHARGE DATE: 11/23/2019 HISTORY OF PRESENT ILLNESS: Mr. Salcido is a 59-year-old. He has no primary care physician. He is followed by Dr. Cintron. About a week ago, he was having trouble with constipation, noted trouble with voiding off and on, and became very uncomfortable. He is followed by Dr. Cintron. He was treated for T-cell leukemia. He had a CT scan, which looked good. No sign of solid mass or new findings, but they found he had severe neutropenia. He was unable to void, so he came to the emergency room. He was catheterized and started on antibiotics and put in reverse isolation. PAST MEDICAL HISTORY: 1. Long history of alcoholism in the past. 2. COPD. 3. Diabetes mellitus type 2. 4. He was admitted back in January for pancytopenia and sub-laryngeal epiglottitis workup to evaluate for pancytopenia, discovered T-cell leukemia. HOSPITAL COURSE: Given IV fluids, put on broad-spectrum antibiotics, and I put him on some Flomax. His white count came up and blood count came up nicely, with lab from today showing white count 3030, hematocrit 33, hemoglobin 10, platelet count 124,000. His electrolytes look good. Creatinine was 0.6. Blood sugars 175, 176, and 86. He wanted to go home. Will let him go home. Will continue his previous medications. DISCHARGE MEDICATIONS: He is on cyclophosphamide 1 tablet daily, folic acid 0.4 mg daily, Neurontin 100 mg at bedtime, hydrocodone 10/325 one every 8 hours p.r.n., Humulin insulin 25 units subcutaneously b.i.d., lactulose 30 mL b.i.d., metformin 500 mg p.o. b.i.d., multivitamin 1 a day, MiraLAX 17 grams p.o. b.i.d., and prednisone 1 tablet a day, I believe it is a 10 mg. cc: Roberto Herrera MD
[2019-11-23] MEDS ORDERED: FLU VACCINE IM ONE (15:22)
== END 2019-11-23 16:37 | disposition home or self-care (01) | DRG 690 ==
LOC: ED 15:24 → 3N 20:38
PROVIDERS: ATTEND Emergency Medicine

== ENCOUNTER 2020-01-30 22:54 | Inpatient (IN) ==
[2020-01-30 23:55] LABS: AGAP 13; ALB/GLOB RATIO 0.8; ALBUMIN 3.1 g/dL (3.5-5.0); ALKALINE PHOSPHATASE 112 U/L (32-122); BUN 13 mg/dL (8-22); CALCIUM 8.2 mg/dL (8.8-10.2); CHLORIDE 93 mmol/L (98-107); COSMO 258; CREATININE 0.8 mg/dL (0.7-1.2); ESTIMATED GFR > 60; GLUCOSE 113 mg/dL (70-104); GOT 13 U/L (10-34); GPT 8 U/L (10-44); POTASSIUM 4.5 mmol/L (3.5-5.1); SODIUM 128 mmol/L (136-145); TCO2 22 mmol/L (25-35); TOTAL BILIRUBIN 0.46 mg/dL (0.20-1.00); TOTAL PROTEIN 6.9 g/dL (6.3-8.3)
[2020-01-31 00:19] LABS: BASO# 0.02 X1000 (0.0-0.2); BASO% 1.3 % (0.0-0.8); HEMATOCRIT 34.5 % (42.0-52.0); HEMOGLOBIN 11.3 g/dL (14.0-18.0); LYMPH# 0.78 X1000 (1.2-3.4); MCH 26.5 PG (27-31); MCHC 32.8 g/dL (33-37); MCV 80.8 FL (81-99); MONO# 0.48 X1000 (0.11-0.59); MONO% 31.4 % (1.7-9.3); MPV 8.4 FL (7.4-10.4); NEUT% 16.3 % (42.2-75.2); PLT 200 X1000 (130-400); RBC 4.27 XMIL (4.7-6.1); RDW 15.7 % (11.5-14.5); WBC 1.53 X1000 (4.8-10.8)
[2020-01-31 00:29] LABS: NEUT# 0.25 X1000 (1.4-6.5)
[2020-01-31 03:18] LABS: URINE SOURCE CATH
[2020-01-31 03:22] LABS: BILIRUBIN URINE NEGATIVE (NEGATIVE); BLOOD URINE NEGATIVE (NEGATIVE); COLOR YELLOW; GLUCOSE URINE NEGATIVE (NEGATIVE); KETONE URINE NEGATIVE (NEGATIVE); LEUKOCYTES URINE NEGATIVE (NEGATIVE); NITRITE URINE NEGATIVE (NEGATIVE); PROTEIN URINE NEGATIVE (NEGATIVE); SP GRAVITY URINE 1.007; TURBIDITY URINE CLEAR (CLEAR); UROBILINOGEN URINE NORMAL (NORMAL)
[2020-01-31 03:23] LABS: UR EPITHELIAL CELLS <10 /HPF (<10); URINE BACTERIA NEGATIVE /HPF; URINE RBC <10 /HPF (<10); URINE WBC <10 /HPF (<10)
--- NOTE | 2020-01-31 04:27 | PROVIDER DOCUMENTATION ---
This chart was entered by Braulio Oneal Scribe, acting as scribe for Nic Rob DO. HPI-General Adult - General Stated Complaint: ABDOMINAL PAIN Time Seen by Provider: 01/30/20 23:04 Source: patient Allergies/Adverse Reactions: Patient Allergies Allergy/AdvReac Type Severity Reaction Status Date / Time No Known Allergies Allergy Verified 11/17/19 22:05 Home Medications: Home Medication List Medication Instructions Recorded Confirmed Last Taken Type Folic Acid 0.4 mg PO DAILY #30 tab 02/23/19 06/30/19 03/16/19 Rx Gabapentin [Neurontin] 100 mg PO QHS #30 cap 02/23/19 11/17/19 03/16/19 Rx Insulin Human NPH [Humulin N] 25 unit SUBQ BID #4 vial 02/23/19 11/17/19 06/30/19 Rx Metformin HCl 500 mg PO BID #60 tab 02/23/19 11/17/19 03/23/19 06:30 Rx Multivit,Fe,Ca,FA & Min [Thera M 1 ea PO DAILY tab 07/17/19 11/17/19 Unknown Rx Plus] Cyclophosphamide 1 tab PO DAILY 11/17/19 11/17/19 Unknown History Hydrocodone/Acetaminophen 1 tab PO Q8H PRN 11/17/19 11/17/19 Unknown History [Hydrocodone-Acetamin 10-325 mg] Prednisone 1 tab PO DAILY 11/17/19 11/17/19 Unknown History Acetaminophen [Tylenol] 650 mg PO Q6H PRN PRN tab 11/23/19 Unknown Rx Tamsulosin [Flomax] 0.4 mg PO DAILY 30 Days #30 cap 11/23/19 Unknown Rx - History of Present Illness -Gen Adult Nature of Presenting Problems: Pt is a 59 y/o M primarily reports he came to the ED for a fever and runny nose for days. He says his fever at home was 103 prior to coming to the ED. He also c/o of a cough and SOB with [id number] pain for 2 months. He reports no BM for a couple of day. He report he has luekemia for 1 year now being followed by Dr Cintron Location of Pain/Injury: reports: abdomen Pain Radiation: reports: no radiation Quality of Pain: reports: aching Severity: reports: mild, moderate Onset/Duration: reports: 2 days ago Timing: reports: still present Modifying Factors: improves with: nothing Associated Symptoms: reports: fever/chills, genitourinary problems, sinus congestion/drainage, shortness of breath. denies: back/neck pain, chest pain, diarrhea, nausea, trouble walking Similar Symptoms Previously?: No Recently seen or treated by another doctor?: No Review of Systems - Adult - REVIEW OF SYSTEMS - ADULT Constitutional: reports: fever. denies: chills Eyes: reports: no symptoms reported Ears, Nose, Mouth & Throat: denies: ear pain Cardiovascular: denies: chest pain, edema, palpitations Respiratory: reports: cough, shortness of breath Gastrointestinal: reports: abdominal pain, constipation. denies: nausea, rectal bleeding, vomiting Genitourinary: denies: dysuria, discharge, hematuria Musculoskeletal: reports: joint pain. denies: back pain, muscle weakness Integumentary: reports: no symptoms reported Neurological: denies: dizziness/vertigo, headache/migraines Psychiatric: reports: no symptoms reported Endocrine: reports: no symptoms reported Hematologic/Lymphatic: reports: no symptoms reported Allergic/Immunologic: reports: no symptoms reported All Other Systems: Reviewed and Negative Past History - Adult - PAST MEDICAL HISTORY-ADULT Review of Records: reports: Old Records Reviewed, Nursing Assessment Review, Medications Reviewed Major Childhood Illnesses: reports: denies history Endocrine/Immune: reports: other (pancytopenia) - FAMILY HISTORY Family History: reviewed, not pertinent - SOCIAL HISTORY Smoking: quit greater than 1 year, cigarettes Living Situation: family Physical Exam-General - PHYSICAL EXAM-ADULT Initial Vital Signs Reviewed: Yes - CONSTITUTIONAL General Appearance: appears well, alert, no apparent distress - EYES Eyes: PERRL/EOMI, pink conjunctivae - HEAD, EARS, NOSE, MOUTH & THROAT HENMT: moist mucous membranes, normal ENT inspection, TMs normal, pharynx normal - NECK Neck: full range of motion, supple, normal inspection - RESPIRATORY Respiratory: no pleuratic chest pain, no respiratory distress, no accessory muscle use, decreased breath sounds (bilaterally) - CARDIOVASCULAR Cardiovascular: normal peripheral pulses, regular rate, rhythm - GASTROINTESTINAL (ABDOMEN) Abdominal Exam: tenderness (lower abdomen). negative: guarding, rebound - MUSCULOSKELETAL Back Exam: normal inspection, no CVA tenderness, no vertebral tenderness Extremity: normal range of motion, non-tender, normal gait, normal inspection, no pedal edema - SKIN Integumentary: normal color, normal turgor, warm/dry - NEUROLOGIC Neurologic: grossly normal, no motor/sensory deficits - PSYCHIATRIC Psych/Mental Status: normal mood/affect, normal thought content, normal thought process, oriented x 3 Progress - PLAN OF CARE/RESULTS Result Diagrams: 01/30/20 23:22 01/30/20 23:22 Departure - Departure Date of Disposition Decision: 01/31/20 Time of Disposition Decision: 04:27 DIAGNOSIS: Neutropenia, febrile Disposition: ADMITTED INPATIENT 09 Certified Medical Emergency: Emergent Condition: Stable Referrals and Follow-Ups: None,PCP [Primary Care Provider] - - Critical Care Note This patient required my direct & personal management of CC.: No Attestation - Physician/ JODI Attestation Patient care was provided by Advanced Practice Provider:: No The physician spent face to face time with patient:: Yes Advanced Practice Provider documentation review:: Supervising physician onsite and consulted in the evaluation and care of this patient. The physician did have a face to face encounter with the patient. This chart was documented by the indicated scribe, (Braulio Oneal Scribe) and accurately reflects the services I performed and decisions made by me, Nic Rob DO, as attested by the provider's signature.
[2020-01-31] MEDS: MAXIPIME 1 GM in NS 50 ML IV SCH ×2 (06:30→16:21)
--- NOTE | 2020-01-31 06:57 | HISTORY AND PHYSICAL ---
CHIEF COMPLAINT: Fevers. HISTORY OF PRESENT ILLNESS: Mr. Salcido is a 59-year-old male who has a history of leukemia for which he sees Dr. Cintron. He is still on oral chemotherapy. Has a longstanding history of alcoholism; however, he stopped drinking 2 years ago, COPD and diabetes mellitus type 2. At any rate, he comes in today with a subjective fever of 104. He treated this with Tylenol at home. On arrival, his temperature 99.7. He was slightly hypotensive and tachycardic. Laboratory data found the patient to be neutropenic with hyponatremia. Does look volume depleted on examination. He will be admitted to the medical floor for further evaluation and treatment. PAST MEDICAL HISTORY: See HPI. PREVIOUS SURGICAL HISTORY: Cardiac stenting. SOCIAL HISTORY: Was a fairly heavy drinker for multiple years, quit around 2 years ago. Apparently smokes a half a pack to 1 pack of cigarettes per day. No illicit drugs. He lives with his son. FAMILY HISTORY: Denies any family history of cancer, dementia or coronary artery disease in first- degree relatives. ALLERGIES: No known drug allergies. HOME MEDICATIONS: A list is not available at this time. Patient does take Rome 10 mg every 8 hours and prednisone 20 mg daily as well as Flomax 0.4 mg p.o. daily, but this is not a full list. It was just what the patient remembered. REVIEW OF SYSTEMS: Patient has had abdominal pain, diarrhea, nausea with no vomiting, shortness of breath, subjective fevers, dry cough, fever and chills, and aches in his joints. All other systems were reviewed and found to be negative. Other pertinent positives listed above in the HPI. PHYSICAL EXAMINATION: VITAL SIGNS: Temperature 99.7, pulse 90, respirations 20, blood pressure 99/62, oxygen saturation 98% on room air. GENERAL: Pleasant 59-year-old male lying in the ER stretcher. He is alert and oriented times 3, in no acute distress. HEENT: Head is atraumatic, normocephalic. Pupils equal, round, reactive to light. Extraocular eye movement is intact. Sclera is anicteric. Conjunctiva is pale. Oral mucosa is dry. NECK: Supple. No JVD. No thyromegaly. Trachea is midline. No cervical lymphadenopathy. CARDIAC: S1, S2 appreciated. No murmurs, gallops, rubs. LUNGS: Clear to auscultation bilaterally. No rhonchi, wheezes, rales. Symmetric rise and fall with respirations. ABDOMEN: Soft, nondistended, nontender. Bowel sounds present all 4 quadrants, normoactive. No pulsatile mass. No organomegaly. EXTREMITIES: Grade 2 clubbing. No cyanosis. No edema. One-plus pedal pulses bilaterally. GENITOURINARY: No bladder distention. Patient voids. Otherwise deferred. NEUROLOGICAL: He is alert and oriented times 3. No focal motor deficits. Otherwise nonfocal examination. DIAGNOSTIC DATA: CT of the abdomen and pelvis shows questionable gastritis. Chest x-ray: No effusions, infiltrates or edema. LABORATORY DATA: WBC 1.53. Hemoglobin 11.2. Hematocrit 34.5. Platelet count 200. Neutrophil 0.25. Sodium 128. Potassium 4.5. Chloride 93. Carbon dioxide 22. BUN 13. Creatinine 0.8. Glucose 113. Urine unremarkable. ASSESSMENT: 1. Neutropenic fever. 2. Acute leukemia with oral chemotherapy. 3. Fluid volume depletion. 4. Nausea and diarrhea. 5. Diabetes mellitus type 2. 6. Hyponatremia related to volume depletion. PLAN: Admit patient to the medical floor. His flu swab is pending. We will go ahead and isolate the patient for COVID-19 and neutropenic precautions. If the flu swab is negative, we will consider swabbing for COVID-19 but at this time we will defer that to the primary team this morning. We will start patient on gentle fluid rehydration, treat the patient with IV cefepime 1 g q.12 hours. It is possible that the gastritis is viral in nature. We will continue his prednisone, Flomax and Rome. Fingerstick blood sugars q.a.c. and at bedtime with sliding scale insulin. Further recommendation per patient clinical course. Dictated by SAPNA Haynes for Jin Kern MD cc: SAPNA Haynes
[2020-01-31] MEDS: HUMALOG SUBQ SCH ×4 (07:01→22:00)
--- NOTE | 2020-01-31 07:11 | Diag Imaging Result Doc PS360 ---
EXAM: CHEST-PORTABLE 01/30/2020 HISTORY: fever TECHNIQUE: AP portable at 2343 COMMENT: There is no evidence of acute cardiac or pulmonary disease. The inspiration is slightly less optimal than on 11/17/2019. IMPRESSION: No acute disease. Electronically signed by Jimmy Michael 01/31/2020 7:09 AM
[2020-01-31] MEDS ORDERED: TYLENOL PO PRN ×2 (07:53→15:27)
[2020-01-31] MEDS ORDERED: ZOFRAN IV PRN (07:53)
--- NOTE | 2020-01-31 08:15 | Diag Imaging Result Doc PS360 ---
EXAM: CT ABD/PELVIS W/IV CONT ONLY 01/30/2020 HISTORY: abdominal pain TECHNIQUE: This exam was performed using automated exposure control, adjustment of mA or kV according to patient size, and/or use of iterative reconstruction technique. COMMENT: The current study is compared where possible with the previous examination of 11/17/2019 from the [facility]. There are patchy opacities in the posterior lower lobes bilaterally consistent with atelectasis. Available images from the previous examination did not include the lung bases. There are some calcified granulomata in the spleen. Spleen is enlarged measuring over 15.5 cm in AP dimension. The images available from the previous examination did not include all of the spleen. Compared to the previous study of 07/01/2019 this has increased from just under 14 cm. The adrenal glands are not enlarged. The left kidney is slightly displaced by the enlarged spleen. There is a cortical cyst in the left kidney anteriorly measuring over 4.8 cm in diameter. The portal vein is somewhat distended in appearance. The liver is unremarkable in appearance. The gallbladder is clear. The pancreas is unremarkable. There are several prominent left periaortic nodes, the largest exceeding 12 mm in long axis. There are multiple enlarged mesenteric nodes some of which exceed 2 cm in long axis. The portions of the abdomen which were included on the previous examination are similar in appearance with regard to the mesenteric adenopathy. The mesenteric nodes are definitely larger than on 07/01/2019. The appendix is normal in appearance. There are scattered colonic diverticula and there is a fair amount of stool in the transverse and ascending colon. The small bowel is not distended. Pelvis: There is no evidence of free fluid. The urinary bladder is not distended. There are degenerative facet and disc changes at L5-S1. The regional skeleton appears to be intact. IMPRESSION: 1. Splenomegaly. Mesenteric adenopathy apparently stable since 11/17/2019, nonspecific retroperitoneal adenopathy. 2. Minimal bilateral lower lobe subsegmental atelectasis. 3. Constipation. Electronically signed by Jimmy Michael 01/31/2020 8:12 AM
[2020-01-31] MEDS ORDERED: MILK OF MAGNESIA PO ONE (11:03)
[2020-01-31] MEDS: NS 1,000 ML IV SCH (11:52)
[2020-01-31] MEDS: LOVENOX SUBQ SCH (11:53)
[2020-01-31] MEDS: PREDNISONE PO SCH (11:54)
[2020-01-31] MEDS: NORCO-10 PO PRN ×2 (11:54→22:15)
[2020-01-31] MEDS: FLOMAX PO SCH (11:54)
[2020-01-31] MEDS ORDERED: MUCINEX PO SCH (13:00)
--- NOTE | 2020-01-31 15:46 | PROGRESS NOTE ---
DATE: 01/31/2020 SUBJECTIVE: Patient has no major complaints. He does report kind of cough, congestion, and fevers up to 104 starting yesterday. OBJECTIVE: Vital signs: Blood pressure 104/69, heart rate 79, respiratory 16, temperature 98.1 degrees, T-max was 99.7 degrees; we did not have any fevers. PROBLEM LIST: 1. Neutropenic fever. He has not had chemotherapy in 2 months, so I am not quite sure what is going on there, but we will consult Dr. Cintron. He is empirically on antibiotics and we may need to give him Neupogen. We will follow his counts. Coronavirus Disease 2019 is being ruled out. 2. Type 2 diabetes. We will follow his blood sugars. DISPOSITION: Pending his clinical status. cc: Rahul Kinney MD
[2020-01-31] MEDS ORDERED: MIRALAX PO SCH (21:00)
[2020-01-31] MEDS ORDERED: NEURONTIN PO SCH (21:00)
[2020-01-31] MEDS: HUMULIN N SUBQ SCH (22:00)
[2020-02-01] MEDS: NS 1,000 ML IV SCH ×3 (03:42→18:48)
[2020-02-01] MEDS: MAXIPIME 1 GM in NS 50 ML IV SCH ×3 (03:46→17:21)
[2020-02-01] MEDS: HUMALOG SUBQ SCH ×4 (06:18→21:16)
[2020-02-01 07:04] LABS: AGAP 12; BUN 12 mg/dL (8-22); CALCIUM 8.3 mg/dL (8.8-10.2); CHLORIDE 97 mmol/L (98-107); COSMO 271; CREATININE 0.8 mg/dL (0.7-1.2); ESTIMATED GFR > 60; GLUCOSE 260 mg/dL (70-104); POTASSIUM 4.2 mmol/L (3.5-5.1); SODIUM 131 mmol/L (136-145); TCO2 22 mmol/L (25-35)
[2020-02-01 07:06] LABS: BASO# 0.02 X1000 (0.0-0.2); BASO% 1.8 % (0.0-0.8); HEMATOCRIT 31.2 % (42.0-52.0); HEMOGLOBIN 9.9 g/dL (14.0-18.0); LYMPH# 0.62 X1000 (1.2-3.4); LYMPH% 54.9 % (20.5-51.1); MCH 26.1 PG (27-31); MCHC 31.7 g/dL (33-37); MCV 82.1 FL (81-99); MONO# 0.36 X1000 (0.11-0.59); MONO% 31.9 % (1.7-9.3); MPV 8.6 FL (7.4-10.4); NEUT# 0.13 X1000 (1.4-6.5); NEUT% 11.4 % (42.2-75.2); PLT 172 X1000 (130-400); RDW 15.7 % (11.5-14.5); WBC 1.13 X1000 (4.8-10.8)
[2020-02-01] MEDS ORDERED: CYTOXAN PO SCH (09:00)
[2020-02-01] MEDS: HUMULIN N SUBQ SCH ×2 (09:36→23:06)
[2020-02-01] MEDS: GRANIX SUBQ SCH ×2 (09:36)
[2020-02-01] MEDS: NORCO-10 PO PRN ×4 (09:37→23:06)
[2020-02-01] MEDS: LOVENOX SUBQ SCH (09:37)
[2020-02-01] MEDS: PREDNISONE PO SCH (09:37)
[2020-02-01] MEDS: FLOMAX PO SCH (09:37)
[2020-02-01] MEDS: FOLIC ACID PO SCH (09:37)
--- NOTE | 2020-02-01 17:45 | PROGRESS NOTE ---
DATE: 02/01/2020 SUBJECTIVE: Patient has no complaints. OBJECTIVE: Vital Signs: Blood pressure 109/75, heart rate 72, respiratory rate 20, temperature 98.5 degrees. Cardiovascular: Regular rate and rhythm. Pulmonary: Bilateral breath sounds, clear to auscultation. Gastrointestinal: Soft, nontender, nondistended. Bowel sounds were positive. Extremity: No clubbing or cyanosis. Lymphatic Exam: No peripheral edema. Neurological: Nonfocal. LABORATORY DATA: White count is 1.1, hemoglobin and hematocrit 9 and 31, platelets of 172,000, neutrophils are 11% of a 1000 which is definitely neutropenia, most of it is lymphocytes. Sodium is 131, glucose is up to 60. PROBLEM LIST: 1. Neutropenia with fever, although I do not think he has had any more fever. Coronavirus Disease 2019 is still pending. He is empirically on antibiotics. We will continue to follow. I have started Neupogen, we started that I believe yesterday and I have consulted Dr. Cintron, actually started it today. 2. Hyponatremia. We will continue gentle hydration. May need to check some urine electrolytes and follow. 3. Diabetes, which is not completely under control. He is on a pretty decent amount of insulin but we may have to adjust to at least get it below 200. 4. History of leukemia. I do not have pathology. It was an antral biopsy but that was for GI. His bone marrow from the , pancytopenia. I do not know, he may have myelodysplastic syndrome, but any ways Dr. Cintron is being consulted. We appreciate his input. He says he has not had any treatment in a couple months. I do not know if he may not be on chronic treatment. I am not sure if he is going to need another bone marrow. We will analyze that potentially while he is here. DISPOSITION: Pending his clinical status. cc: Rahul Kinney MD
[2020-02-01] MEDS: NEURONTIN PO SCH (23:05)
[2020-02-02] MEDS: MAXIPIME 1 GM in NS 50 ML IV SCH ×2 (05:18→20:14)
[2020-02-02] MEDS: NORCO-10 PO PRN ×4 (05:22→21:45)
[2020-02-02 05:51] LABS: BASO# 0.02 X1000 (0.0-0.2); BASO% 1.5 % (0.0-0.8); HEMATOCRIT 35.6 % (42.0-52.0); HEMOGLOBIN 11.1 g/dL (14.0-18.0); LYMPH# 0.61 X1000 (1.2-3.4); LYMPH% 46.2 % (20.5-51.1); MCH 25.9 PG (27-31); MCHC 31.2 g/dL (33-37); MCV 83.2 FL (81-99); MONO% 30.3 % (1.7-9.3); MPV 8.3 FL (7.4-10.4); NEUT# 0.29 X1000 (1.4-6.5); PLT 174 X1000 (130-400); RBC 4.28 XMIL (4.7-6.1); RDW 15.6 % (11.5-14.5); WBC 1.32 X1000 (4.8-10.8)
[2020-02-02 06:03] LABS: LYMPHS 46 % (21-51); MONO 19 % (1-9); SEGS 35 % (42-75)
[2020-02-02 06:15] LABS: AGAP 10; BUN 10 mg/dL (8-22); CALCIUM 8.6 mg/dL (8.8-10.2); CHLORIDE 102 mmol/L (98-107); COSMO 269; CREATININE 0.8 mg/dL (0.7-1.2); ESTIMATED GFR > 60; GLUCOSE 67 mg/dL (70-104); POTASSIUM 4.3 mmol/L (3.5-5.1); SODIUM 136 mmol/L (136-145); TCO2 24 mmol/L (25-35)
[2020-02-02] MEDS: HUMALOG SUBQ SCH ×3 (06:58→21:25)
[2020-02-02] MEDS: HUMULIN N SUBQ SCH ×2 (09:30→21:25)
[2020-02-02] MEDS: FLOMAX PO SCH (09:36)
[2020-02-02] MEDS: LOVENOX SUBQ SCH (09:36)
[2020-02-02] MEDS: FOLIC ACID PO SCH (09:36)
[2020-02-02] MEDS: GRANIX SUBQ SCH (09:36)
[2020-02-02] MEDS: NS 1,000 ML IV SCH (09:37)
[2020-02-02] MEDS ORDERED: LUBRIDERM LOTION TOP PRN (12:49)
[2020-02-02] MEDS ORDERED: BLISTEX MEDICATED BERRY LIP BALM TOP PRN (12:49)
--- NOTE | 2020-02-02 15:49 | HEMO/ONC CONSULTATION ---
DATE: 02/02/2020 ADMITTING PHYSICIAN: Jin Kern. REQUESTING PHYSICIAN: Jin Kern. We appreciate this consult. CHIEF COMPLAINT: T-cell large granular lymphocytic leukemia. HISTORY OF PRESENT ILLNESS: Mr. Salcido is a pleasant 59-year-old male well known to Dr. Cintron with a history of T-cell large granular lymphocytic leukemia. The patient has been maintained on oral Cytoxan and prednisone. The patient has a longstanding history of alcoholism as well. However, he stopped drinking approximately 2 years ago. Additionally, he has COPD, diabetes mellitus type 2. The patient came in to the emergency department at [facility] secondary to subjective fever of 104. The patient reports that he treated himself with Tylenol at home and temperature had decreased to 99.7 on arrival. The patient was found to be hypotensive and tachycardic. The patient was found to be significantly neutropenic and hyponatremic. The patient was admitted for volume depletion and neutropenic fever. We are consulted as the patient is well known to us. PAST MEDICAL HISTORY: As in HPI. PAST SURGICAL HISTORY: Cardiac stenting. SOCIAL HISTORY: The patient has a history of alcoholism, however he quit drinking 2 years ago. The patient smokes 1/2 to 1 pack cigarettes daily. He does not use illicit drugs. FAMILY HISTORY: Negative for any hematologic or oncologic disease. MEDICATIONS ON ADMISSION: 1. Diamond. 2. Prednisone. 3. Flomax. ALLERGIES: The patient has no known drug allergies. REVIEW OF SYSTEMS: A 14 point review of systems was obtained and is negative except for mentioned in HPI. PHYSICAL EXAM: Constitutional: The patient is lying supine in bed in no immediate distress. Vital Signs: Temperature 98 degrees, blood pressure 117/84, heart rate 74, respirations 18, O2 saturation 100% on room air. HEENT: Normocephalic, atraumatic. Mucous membranes are pale, moist. Sclerae anicteric. Extraocular movements intact. Chest: Respirations nonlabored. Abdomen: Nondistended. Extremities: No clubbing, cyanosis, or edema. Dermatologic: No rashes, bruises or lesions. Neuro: Awake, alert and oriented x3 with no overt focal deficits. LABORATORY DATA: Hemoglobin 9.9, hematocrit 31.2, white blood cell count is 1.13, platelets 172,000. Sodium 131, potassium 4.2, chloride 97, CO2 is 22, BUN 12, creatinine 0.8 and glucose is 260. ANC is 130. IMAGING STUDIES: CT of the abdomen and pelvis reveals splenomegaly with mesenteric adenopathy that is stable. Additionally, small bilateral lower lobe atelectasis is seen and constipation. Chest x-ray revealed no acute disease. ASSESSMENT AND PLAN: 1. T-cell large granular lymphocytic leukemia, currently on Cytoxan and prednisone p.o. We will hold further treatment at this time until the patient's acute illness passes. 2. Neutropenic fever, rule out influenza. The patient is currently on Coronavirus Disease 2019 precautions until Coronavirus Disease 2019 test results return. We will place the patient on Granix at this time and continue to monitor ANC. 3. Fluid volume depletion. The patient is currently on intravenous fluids with improvement in status. 4. We will follow along with you and make further recommendations pending outcomes. The above reflects the history, exam, assessment, and plan of Dr. Cintron. Dictated by SAPNA Turcios for Nahum Cintron MD cc: SAPNA Turcios MD
[2020-02-02] MEDS: NEURONTIN PO SCH (21:45)
--- NOTE | 2020-02-02 22:17 | PROGRESS NOTE ---
DATE: 02/02/2020 SUBJECTIVE: Patient with no new complaints. States that he is feeling fine. PHYSICAL EXAMINATION: Vital signs: He is afebrile. Vital signs are stable. general: He is awake, alert. He is lying in bed. HEENT: Normocephalic. Neck: Supple. Cardiovascular: Regular rate. Chest: Clear, nonlabored. Abdomen: Soft, nondistended. Extremities: Moves all extremities. ASSESSMENT: 1. Neutropenia. 2. Febrile illness. 3. Diabetes with recurrent hypoglycemia. 4. History of leukemia. PLAN: We are going to continue patient in the hospital. He is still having neutropenia and he has been started on Neupogen, Dr. Cintron has been consulted. We are going to decrease his insulin as he has had several episodes of hypoglycemia yesterday. Still not eating very well, although has improved and will follow. The patient currently is being investigated for Coronavirus 2019. cc: Jeronimo Lazo MD
[2020-02-03] MEDS: NORCO-10 PO PRN ×4 (02:46→18:55)
[2020-02-03] MEDS: MAXIPIME 1 GM in NS 50 ML IV SCH ×2 (05:16→17:29)
[2020-02-03 06:09] LABS: AGAP 11; BUN 12 mg/dL (8-22); CALCIUM 8.4 mg/dL (8.8-10.2); CHLORIDE 99 mmol/L (98-107); COSMO 267; CREATININE 0.8 mg/dL (0.7-1.2); ESTIMATED GFR > 60; GLUCOSE 112 mg/dL (70-104); POTASSIUM 4.2 mmol/L (3.5-5.1); SODIUM 133 mmol/L (136-145); TCO2 23 mmol/L (25-35)
[2020-02-03 06:22] LABS: BASO# 0.09 X1000 (0.0-0.2); BASO% 5.6 % (0.0-0.8); EOS# 0.01 X1000 (0.0-0.7); EOS% 0.6 % (0.0-10.0); HEMATOCRIT 32.9 % (42.0-52.0); HEMOGLOBIN 10.3 g/dL (14.0-18.0); IMM GRAN# 0.09 X1000 (0.0-0.04); IMM GRAN% 5.6 % (0.0-0.5); LYMPH# 0.84 X1000 (1.2-3.4); LYMPH% 52.5 % (20.5-51.1); MCH 26.1 PG (27-31); MCHC 31.3 g/dL (33-37); MCV 83.3 FL (81-99); MONO# 0.53 X1000 (0.11-0.59); MONO% 33.1 % (1.7-9.3); MPV 8.7 FL (7.4-10.4); NEUT# 0.04 X1000 (1.4-6.5); NEUT% 2.6 % (42.2-75.2); PLT 174 X1000 (130-400); RBC 3.95 XMIL (4.7-6.1); RDW 15.7 % (11.5-14.5)
[2020-02-03] MEDS: HUMALOG SUBQ SCH ×5 (06:35→22:45)
[2020-02-03] MEDS: LOVENOX SUBQ SCH (08:13)
[2020-02-03] MEDS: GRANIX SUBQ SCH (08:13)
[2020-02-03] MEDS: FLOMAX PO SCH (08:13)
[2020-02-03] MEDS: HUMULIN N SUBQ SCH ×2 (08:13→22:46)
[2020-02-03] MEDS: FOLIC ACID PO SCH (08:13)
[2020-02-03] MEDS: NS 1,000 ML IV SCH ×2 (09:39→17:30)
--- NOTE | 2020-02-03 13:42 | HEMO/ONC PROGRESS NOTE ---
DATE: 02/03/2020 CHIEF COMPLAINT: There are no new complaints. OBJECTIVE: Vital Signs: Temperature 97.8 degrees, blood pressure 113/75, heart rate 77, respirations are 16, O2 saturation 100% on room air. Physical Examination: Cardiovascular: S1, S2. Abdomen is nondistended. Chest.: Respirations are nonlabored. Extremities: No edema. Laboratory Data: Hemoglobin 10.3, hematocrit 32.9, white blood cell count 1.60, platelets 174,000. Sodium 133, potassium 4.2, chloride 99, CO2 is 23, BUN 12, creatinine 0.8, and glucose is 112. ASSESSMENT AND PLAN: 1. 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 2. Neutropenic fever, which has resolved. Influenza and Covid-19 had been ruled out. Neutropenia does persist and has worsened in spite of treatment with Granix, questionably related to antibiotic use. 3. Fluid volume depletion, improved status post intravenous fluids. The patient is on a general diet at this time and is tolerating it well. 4. We will follow along with you and make further recommendations pending outcomes. The above reflects the history, examination, assessment, and plan of Dr. Cintron. Dictated by SAPNA Turcios for Nahum Cintron MD cc: SAPNA Turcios MD
--- NOTE | 2020-02-03 20:52 | PROGRESS NOTE ---
DATE: 02/03/2020 SUBJECTIVE: Patient denies any new complaints. States overall he is feeling. PHYSICAL EXAMINATION: He is afebrile. Vital signs stable.HEENT: Normocephalic. Neck: Supple. Cardiovascular: Regular rate. Chest: Clear, nonlabored. Abdomen: Soft, nondistended. Extremities: Moves all extremities. ASSESSMENT: 1. Neutropenia with fever. White count still low at 1.6, absolute neutrophil count actually dropped a little bit further to 0.04. Currently he is on Granix. 2. Hyponatremia. 3. Diabetes with hypoglycemia, currently stable. 4. T-cell lymphocytic leukemia, currently being followed by Dr. Cnitron. PLAN: We will continue cefepime. Continue to follow. Continue neutropenic precautions. Further orders as needed. cc: Jeronimo Lazo MD
[2020-02-04] MEDS: NORCO-10 PO PRN ×5 (00:02→21:35)
[2020-02-04] MEDS: NEURONTIN PO SCH ×2 (00:04→21:35)
[2020-02-04] MEDS: MAXIPIME 1 GM in NS 50 ML IV SCH ×2 (05:10→17:22)
[2020-02-04] MEDS: HUMALOG SUBQ SCH ×4 (06:50→21:38)
[2020-02-04 08:38] LABS: AGAP 12; BUN 12 mg/dL (8-22); CALCIUM 9.1 mg/dL (8.8-10.2); CHLORIDE 94 mmol/L (98-107); COSMO 260; CREATININE 0.8 mg/dL (0.7-1.2); ESTIMATED GFR > 60; GLUCOSE 113 mg/dL (70-104); SODIUM 129 mmol/L (136-145); TCO2 23 mmol/L (25-35)
[2020-02-04 08:41] LABS: BASO# 0.05 X1000 (0.0-0.2); BASO% 2.7 % (0.0-0.8); HEMATOCRIT 34.5 % (42.0-52.0); HEMOGLOBIN 10.8 g/dL (14.0-18.0); LYMPH# 0.85 X1000 (1.2-3.4); LYMPH% 46.2 % (20.5-51.1); MCH 26.1 PG (27-31); MCHC 31.3 g/dL (33-37); MCV 83.3 FL (81-99); MONO# 0.58 X1000 (0.11-0.59); MONO% 31.5 % (1.7-9.3); NEUT% 19.6 % (42.2-75.2); PLT 151 X1000 (130-400); RBC 4.14 XMIL (4.7-6.1); RDW 16.1 % (11.5-14.5); WBC 1.84 X1000 (4.8-10.8)
[2020-02-04 08:45] LABS: NEUT# 0.36 X1000 (1.4-6.5)
[2020-02-04 09:17] LABS: LYMPHS 40 % (21-51); MONO 50 % (1-9); SEGS 10 % (42-75)
[2020-02-04] MEDS: FOLIC ACID PO SCH (10:10)
[2020-02-04] MEDS: GRANIX SUBQ SCH (10:10)
[2020-02-04] MEDS: LOVENOX SUBQ SCH (10:10)
[2020-02-04] MEDS: FLOMAX PO SCH (10:10)
[2020-02-04] MEDS: NS 1,000 ML IV SCH (10:13)
[2020-02-04] MEDS: HUMULIN N SUBQ SCH ×2 (10:13→21:36)
--- NOTE | 2020-02-04 16:37 | PROGRESS NOTE ---
DATE: 02/04/2020 SUBJECTIVE: The patient has no major complaint. OBJECTIVE: vital signs: Blood pressure 113/72, heart rate of 81, respiratory rate of 17, temperature 98.1 degrees. Cardiovascular: Regular rate and rhythm. Pulmonary: Bilateral breath sounds. Clear to auscultation. Gastrointestinal: Soft, nontender, nondistended. Bowel sounds were positive. LABORATORIES: White count today is still low at 1.8 with 19% segs which is an improvement actually, hemoglobin and hematocrit 10 and 34, platelets 151,000. Sodium is down to 129 with a glucose of 210. PROBLEM LIST: 1. Neutropenic fever. He has not really had any more fever. He is still neutropenic, but improving on Neupogen. He is a chronic lymphocytic leukemia patient. He has T-cell large granular lymphocytic leukemia and since what the pathology said he is on Cytoxan and prednisone which we have held for time being. There is concern that the antibiotics may be making it worse. He is afebrile. I suppose we could stop the antibiotics. It is not clear exactly what we are treating. All his tests have been negative and he has not had a fever in days. His urine was clear on admission. His SARS-2 coronavirus testing was negative. We may just want to stop the cefepime and see how he is doing. We usually would want to stop it after he has is off of fever or at least not neutropenic. But we will monitor his counts tomorrow. If they are not much improved, I will discuss with Dr. Cintron about stopping cefepime. Alternatively, if he wants to go ahead and stop it when he checks on him, that is fine as well. But for right now I am going to leave him on it until his numbers are better. I think we can stop IV fluids. It is not clear he needs those. 2. Diabetes. I think we have adjusted insulin because he had some hypoglycemic episodes, but those seem to be better with the adjustment. DISPOSITION: Pending normal white count and no fevers, hopefully in next 1 to 2 days. cc: Rahul Kinney MD
[2020-02-05] MEDS: MAXIPIME 1 GM in NS 50 ML IV SCH ×2 (04:06→17:17)
[2020-02-05] MEDS: NORCO-10 PO PRN ×3 (04:14→16:08)
[2020-02-05] MEDS: HUMALOG SUBQ SCH ×3 (06:58→17:16)
[2020-02-05 07:54] LABS: BASO# 0.06 X1000 (0.0-0.2); BASO% 1.9 % (0.0-0.8); EOS# 0.01 X1000 (0.0-0.7); EOS% 0.3 % (0.0-10.0); HEMATOCRIT 38.3 % (42.0-52.0); HEMOGLOBIN 11.9 g/dL (14.0-18.0); IMM GRAN# 0.02 X1000 (0.0-0.04); IMM GRAN% 0.6 % (0.0-0.5); LYMPH# 1.17 X1000 (1.2-3.4); LYMPH% 36.8 % (20.5-51.1); MCH 25.8 PG (27-31); MCHC 31.1 g/dL (33-37); MCV 83.1 FL (81-99); MONO# 0.94 X1000 (0.11-0.59); MONO% 29.6 % (1.7-9.3); MPV 8.6 FL (7.4-10.4); NEUT# 0.98 X1000 (1.4-6.5); NEUT% 30.8 % (42.2-75.2); PLT 156 X1000 (130-400); RBC 4.61 XMIL (4.7-6.1); RDW 16.6 % (11.5-14.5); WBC 3.18 X1000 (4.8-10.8)
[2020-02-05 08:24] LABS: AGAP 11; BUN 14 mg/dL (8-22); CALCIUM 9.9 mg/dL (8.8-10.2); CHLORIDE 95 mmol/L (98-107); COSMO 266; CREATININE 0.8 mg/dL (0.7-1.2); ESTIMATED GFR > 60; GLUCOSE 123 mg/dL (70-104); POTASSIUM 4.5 mmol/L (3.5-5.1); SODIUM 132 mmol/L (136-145); TCO2 26 mmol/L (25-35)
[2020-02-05] MEDS: FOLIC ACID PO SCH (09:52)
[2020-02-05] MEDS: FLOMAX PO SCH (09:52)
[2020-02-05] MEDS: GRANIX SUBQ SCH (09:52)
[2020-02-05] MEDS: HUMULIN N SUBQ SCH (09:52)
[2020-02-05] MEDS: LOVENOX SUBQ SCH (09:52)
[2020-02-05 14:37] VITALS: BP 102/65
--- NOTE | 2020-02-05 20:17 | DISCHARGE SUMMARY ---
ADMISSION DATE: 01/31/2020 DISCHARGE DATE: 02/05/2020 DISCHARGE DIAGNOSES: 1. Neutropenic fever without clear etiology, rule out coronavirus disease 19. 2. History of T-cell large granular lymphocytic leukemia, on chronic chemo. CONSULTATIONS: Hematology, Oncology. PROCEDURES: None. HOSPITAL COURSE: This 59-year-old male presenting with shortness of breath with history of alcohol abuse. He had a temperature up to 104 reportedly. He was placed on neutropenic precautions, had COVID-19 ruled out because of current pandemic. Flu was negative. He was placed on cefepime. CT scan really just showed mesenteric adenopathy. No clear constipation, but no clear pneumonia. He was placed on Neupogen because of his relative leukopenia. His initial white count was 1.5 and then 1.1 with 11% neutrophils, 54% lymphocytes, which is not unexpected. Hematology/Oncology was consulted. He never really had a fever. The highest temp we got was 99.7. He was maintained on his medications Neupogen, empiric antibiotics. Blood cultures, flu, all that was negative. By the , he was no longer neutropenic. His white count had jumped up to 3000 with 30% segs, which had essentially doubled so he was felt stable for discharge. I did touch base with Dr. Cintron. He did receive Neupogen on the day of discharge and he will go home on Omnicef just to cover. OTHER DISCHARGE MEDICATIONS: I am going to give him Levaquin 500 for 7 days, cyclophosphamide 50 daily, [place] p.r.n., prednisone 20 daily, Neurontin 100 at bedtime, Flomax 0.4 daily, folic acid 0.4 daily, Humulin N 25 units b.i.d., Levaquin 500 daily, metformin 500 b.i.d., multivitamin daily, and Tylenol p.r.n. FOLLOWUP INSTRUCTIONS: He needs to follow up with Dr. Cintron next week for basic labs, look at his counts and basic. A 32 minute discharge refer to Dr. Cintron, Dr. Nic Rob. cc: Rahul Kinney MD
== END 2020-02-05 19:34 | disposition home or self-care (01) | DRG 809 ==
LOC: ED 22:54 → 3N 01-31 05:43 → SUATTDRO 01-31 05:43 → 4N 01-31 07:52 → 3N 02-03 10:25
PROVIDERS: ATTEND Internal Medicine